=== PATIENT | male | born 1965 | race Caucasian/White ===

== ENCOUNTER 2022-08-14 11:49 | Outpatient (CLI) | payer MEDICARE, MEDICAID, SELFPAY | END 2022-08-14 11:50 | disposition home or self-care (01) | LOC: AMB 08-17 10:44 | PROVIDERS: PCP Family Medicine; Visit Provider Family Medicine | DX: E11.65 Type 2 diabetes mellitus with hyperglycemia (principal); R41.82 Altered mental status, unspecified | CPT/HCPCS: A0425; A0427 ==

== ENCOUNTER 2022-08-14 12:26 | Inpatient (IN) | payer MEDICARE, MEDICAID, SELFPAY ==
[2022-08-14] VITALS (46 sets, daily range): BP systolic 152–225; BP diastolic 89–156; PULSE 86–109; RESP 16–28; TEMP 36.6–36.8; O2SAT 92–98; BMI 47.0; BMI 45.7
--- NOTE | 2022-08-14 12:32 | CRLHL7_ITS ---
For Patients: As a result of the Cures Act, medical imaging exams and procedure reports are released immediately into your electronic medical record. You may view this report before your referring provider. If you have questions, please contact your health care provider. INDICATION: Altered mental status TECHNIQUE: CT head without contrast. COMPARISON: None. FINDINGS: CSF spaces: Within normal limits for age. Brain parenchyma: No intracranial bleed or mass effect. Mild cerebral atrophy with moderate low-density in the deep white matter. Old lacunar infarct along the left dexter radiata. Skull base and calvarium: Minimal mucosal thickening paranasal sinuses. Atherosclerosis. The visualized orbits are grossly unremarkable. No skull fractures. IMPRESSION: 1. No intracranial bleed or mass effect. 2. Old lacunar infarct left dexter radiata. 3. Cerebral atrophy with nonspecific white matter disease, likely microangiopathy. Results called to Dr. Villegas at 1254 on 08/14/2022 Please note that all CT scans at this facility use dose modulation, iterative reconstruction, and/or weight-based dosing when appropriate to reduce radiation dose to as low as reasonably achievable. Dictated by Jayjay Stoner MD @ 08/14/2022 12:57:19 PM (Electronically Signed)
--- NOTE | 2022-08-14 12:34 | CRLHL7_ITS ---
For Patients: As a result of the Century Cures Act, medical imaging exams and procedure reports are released immediately into your electronic medical record. You may view this report before your referring provider. If you have questions, please contact your health care provider. INDICATION: Altered mental status. TECHNIQUE: Chest 1 views. COMPARISON: None. FINDINGS: Cardiovasculature and mediastinum: Heart size and vasculature are normal in caliber and appearance. Lungs and pleural spaces: Low lung volumes limit assessment. Lungs are clear. No sign of infiltrate or mass. No sign of pleural effusion. No pneumothorax. Bones and soft tissues: No significant findings. IMPRESSION: No acute findings. Dictated by Gary Mcgraw MD @ 08/14/2022 1:08:40 PM (Electronically Signed)
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
[2022-08-14 13:03] LABS: HCO3 VBG 21 mmol/L (21-28); PCO2 VBG 34 mmHG (40-50); PO2 VBG 95.7 mmHG (25-47); pH VBG 7.405 (7.32-7.43)
[2022-08-14 13:05] LABS: Basophils Absolute Auto 0.05 K/uL (0.00-0.30); Basophils Percent Auto 0.5 % (0.0-3.0); Eosinophils Absolute Auto 0.15 K/uL (0.00-0.50); Eosinophils Percent Auto 1.6 % (0.0-7.0); Hematocrit 45.1 % (37.0-53.0); Hemoglobin* 15.5 gm/dL (13.5-17.5); Immature Granulocytes Abs Auto 0.03 K/uL (0.00-0.30); Immature Granulocytes Pct Auto 0.3 %; Lymphocytes Absolute Auto 1.96 K/uL (0.90-2.90); Lymphocytes Percent Auto 21.1 % (20-44); Mean Corpuscular HGB Conc 34 gm/dL (32-36); Mean Corpuscular Hemoglobin 30 pg (26-34); Mean Corpuscular Volume 86 fL (80-100); Monocytes Percent Auto 6.6 % (0.0-11.0); Neutrophils Percent Auto 69.9 % (42.0-72.0); Platelet Count* 211 K/uL (140-440); RDW Coefficient of Variation % 12.6 % (11.5-15.5); Red Blood Count 5.23 m/uL (4.30-5.90)
[2022-08-14 13:10] LABS: Appearance Urine Clear (Clear); Bilirubin Urine Negative (Negative); Blood Urine 2+ (Negative); Color Urine Yellow (Yellow); Glucose Urine 2+ (Negative); Ketones Urine Negative (Negative); Leukocyte Esterase Urine Negative (Negative); Nitrite Urine Negative (Negative); Protein Urine 2+ (Negative); Specific Gravity Urine 1.015 (1.000-1.030); Urobilinogen Urine 0.2 (0.2-1.0)
[2022-08-14 13:10] LABS: Slide Review Reflex No
--- NOTE | 2022-08-14 13:12 | ED.NURSE ---
POC Troponin 0.08, MD notified
[2022-08-14 13:13] LABS: Troponin, Point-of-Care* 0.08 ng/ml (0.01-0.04)
--- NOTE | 2022-08-14 13:13 | ED.NURSE ---
Patient was brought in by EMS with Oxygen at 3L due to sats at 90% on room air. Oxygen now off for room air trial.
[2022-08-14 13:19] LABS: RBC Urine 0-2 (0-2); WBC Urine 0-2 (0-5)
[2022-08-14 13:23] LABS: Albumin* 4.5 g/dL (3.3-5.0)
[2022-08-14 13:24] LABS: Chloride* 102 mmol/L (96-114); Sodium* 132 mmol/L (135-149)
[2022-08-14 13:26] LABS: Alkaline Phosphatase* 109 U/L (40-150); Aspartate Amino Transferase* 44 U/L (12-35); Bilirubin Total* 1.3 mg/dL (0.1-1.5); Blood Urea Nitrogen* 14 mg/dL (7-30); Carbon Dioxide* 21 mmol/L (20-32); Est. Creatinine Clearance* 75.28; Estimated Glomerular Filt Rate 87 ml/min; Total Protein* 7.9 g/dL (6.0-8.3)
[2022-08-14 13:27] LABS: Alanine Aminotransferase* 72 U/L (4-50); Calcium* 9.2 mg/dL (8.4-10.6)
[2022-08-14 13:28] LABS: INR 1.03 (0.91-1.10); Prothrombin Time 14.1 Seconds
[2022-08-14 13:34] LABS: Ethanol* < 0.01 % (0.01-0.03); Glucose* 582 mg/dL (60-115)
[2022-08-14 13:38] LABS: C Reactive Protein* 1.3 mg/dL (0.5-1.0)
[2022-08-14 13:42] LABS: PCR FLU A Negative PCR FLU A (Negative); PCR FLU B Negative PCR FLU B (Negative); PCR RSV Negative PCR RSV (Negative)
[2022-08-14 13:46] LABS: NT Pro B Type NatriureticPept* 191 pg/mL; Procalcitonin* 0.12 ng/mL (<0.50); Troponin I* 0.08 ng/mL (0.01-0.04)
[2022-08-14 13:52] LABS: SARS PCR* Negative SARS-CoV-2 (Negative)
[2022-08-14 13:56] LABS: Erythrocyte SedimentationRate* 13 mm/hr (2-15)
--- NOTE | 2022-08-14 14:03 | ED.NURSE ---
Spoke to pharmacy clinical coordinator at [facility] to get updated medication list. These were handed to provider. Per staff most 30 day supply medications were last filled in October of 2021.
[2022-08-14 14:04] LABS: D Dimer Quantitative* 0.36 ug/ml (0.00-0.50)
[2022-08-14 14:33] LABS: Barbiturate Screen Urine Negative (Negative); Benzodiazepines Screen Urine Negative (Negative); Cannabinoid Screen Urine Negative (Negative); Cocaine Screen Urine Negative (Negative); Methadone Screen Urine Negative (Negative); Methamphetamines Screen Urine Negative (Negative); Opiate Screen Urine Negative (Negative); Oxycodone Screen Urine Negative (Negative); Phencyclidine Screen Urine Negative (Negative); Tricyclic Antidepressant Urine Negative (Negative)
[2022-08-14 14:34] LABS: Amphetamine Screen Urine POSITIVE (Negative)
--- NOTE | 2022-08-14 14:52 | CRLHL7_ITS ---
For Patients: As a result of the Cures Act, medical imaging exams and procedure reports are released immediately into your electronic medical record. You may view this report before your referring provider. If you have questions, please contact your health care provider. INDICATION: Altered mental status. Comparison CT from earlier today. TECHNIQUE: Multiplanar T1, T2, FLAIR and diffusion-weighted imaging. FINDINGS: Moderate generalized volume loss. Scattered patchy foci of T2/FLAIR signal hyperintensity within the white matter is nonspecific but likely represents chronic deep white matter small vessel ischemic changes or sequela migraine headache. There is a small 4 mm focus of T2 hyperintensity within the left basal ganglia with surrounding susceptibility artifact (series 3, image 26) which likely represents a small cavernoma. No intracranial hemorrhage. No abnormal ventricular dilatation. Intracranial vascular flow voids are preserved. No mass effect or midline shift. No restricted diffusion to suggest acute ischemia. Tiny focus susceptibility artifact in the left cerebellum may represent mineral deposition or chronic micro hemorrhage. Bilateral orbits are unremarkable. Normal appearing sella. Visualized paranasal sinuses and mastoid air cells are unremarkable. IMPRESSION: 1. No acute intracranial abnormality 2. Moderate generalized volume loss. Scattered nonspecific foci of T2 signal within the white matter may represent chronic deep white matter small vessel ischemic changes or sequela of migraine headache. 3. 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 4. No midline shift. No mass effect Dictated by Mahendra Jeffrey MD @ 08/14/2022 5:48:18 PM (Electronically Signed)
[2022-08-14 16:23] LABS: Troponin, Point-of-Care* 0.07 ng/ml (0.01-0.04)
--- NOTE | 2022-08-14 16:49 | ED.NURSE ---
Pt to MRI
[2022-08-14] MEDS: LABETALOL HCL 5 MG/ML inj IVP (18:04)
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
--- NOTE | 2022-08-14 20:43 | CRLHL7_ITS ---
For Patients: As a result of the Century Cures Act, medical imaging exams and procedure reports are released immediately into your electronic medical record. You may view this report before your referring provider. If you have questions, please contact your health care provider. INDICATION: Leg pain and swelling. TECHNIQUE: Ultrasound venous duplex lower left extremity. Compression venous exam was performed using eaton-scale, color Doppler, and spectral Doppler analysis. COMPARISON: None. FINDINGS: Deep veins: Sonographic imaging demonstrates the left common femoral, deep femoral, superficial femoral, popliteal, posterior tibial and the contralateral right common femoral veins to be fully compressible with normal color Doppler blood flow. Superficial veins: Greater saphenous vein is fully compressible. No popliteal cyst. IMPRESSION: Normal left lower extremity venous ultrasound, no sign of deep venous thrombosis. Dictated by Rick Maurice MD @ 08/14/2022 10:01:08 PM (Electronically Signed)
[2022-08-14] MEDS: carvediloL 25 MG TABLET PO (21:37)
[2022-08-14 23:14] LABS: Hemoglobin A1C* 13.07 % (0-5.6)
[2022-08-15] VITALS (7 sets, daily range): BP systolic 98–196; BP diastolic 61–100; PULSE 68–86; RESP 16–20; TEMP 36.3–36.8; O2SAT 96
--- NOTE | 2022-08-15 02:15 | PC.NURSE ---
Dr had RN start Nitroprusside ggt but stooped it within [address] wanted to try Coreg PO and see what effect that had on Pt. Pt BP came down within Dr's parameters and continued throughout the night. Ggt did not have to be restarted. Pt BG levels also came down to 256 by 0200. No further action taken on BG. Neuroes remained unremarkable. Pt reporting zero pain. Pleasant and cooperative.
[2022-08-15 07:22] LABS: Chloride* 102 mmol/L (96-114); Potassium* 3.2 mmol/L (3.6-5.1); Sodium* 132 mmol/L (135-149)
[2022-08-15 07:25] LABS: Blood Urea Nitrogen* 14 mg/dL (7-30); Carbon Dioxide* 22 mmol/L (20-32); Est. Creatinine Clearance* 75.28; Estimated Glomerular Filt Rate 87 ml/min; Glucose* 270 mg/dL (60-115)
[2022-08-15 07:26] LABS: Calcium* 8.6 mg/dL (8.4-10.6)
[2022-08-15 07:39] LABS: Troponin I* 0.07 ng/mL (0.01-0.04)
[2022-08-15] MEDS: TORSEMIDE 20 MG TABLET PO (09:24)
[2022-08-15] MEDS: ROSUVASTATIN CALCIUM 10 MG TABLET 20 MG PO (09:24)
[2022-08-15] MEDS: LOSARTAN POTASSIUM 50 MG TABLET 100 MG PO (09:24)
[2022-08-15] MEDS: ISOSORBIDE MONONITRATE ER 30 MG TAB 60 MG PO (09:25)
[2022-08-15] MEDS: carvediloL 25 MG TABLET PO (09:25)
[2022-08-15] MEDS: CLOPIDOGREL 75 MG TABLET PO (09:25)
[2022-08-15] MEDS: ASPIRIN 81 MG TAB.CHEW PO (09:26)
[2022-08-15] MEDS: POTASSIUM CHLORIDE 10 MEQ CAPSULE ER 40 MEQ PO (09:26)
--- NOTE | 2022-08-15 11:39 | P.DS_ITS ---
DS: Providers Provider Time Seen by Provider: 11:39 Date Seen: 08/15/22 Date of admission: 08/14/22 21:10 Primary care physician: Leroy Membreno MD Admitting Clinician: Alisha Diop MD Attending Physician on discharge: Pato Summers MD Date of Discharge: 08/15/22 DS: Diagnosis Discharge Diagnosis (1) Hypertensive encephalopathy: Status: Suspected Problem details: Systolic blood pressures were initially in the 200s on arrival. It was felt his blood pressure was high initially because of needing a lot of high salt foods. He is committed to cutting down on these. He also had some confusion and may have missed some doses of his blood pressure medicines although he is not sure about that. His blood pressures came down into the mid upper 100s with resuming his home medications he was not having any headache or any cognitive problems at the time of discharge and his blood pressures leading up to discharge were 144 /86, 110/80. (2) Diabetes mellitus with hyperglycemia: Status: Acute Problem details: His blood sugar with EMS was 443. Most of his blood sugars here were in the 200s. 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 (3) Essential hypertension: Status: Chronic Problem details: Patient's blood pressure was well controlled on home medications. We did not give him any propranolol use in the hospital because he was on carvedilol. We advised him to stay off the propranolol at home as well. (4) Coronary artery disease: Status: Chronic Problem details: 07/2020 NSTEMI, recommended for CABG, but declined given he refuses blood products. S/p PCI to LAD 07/12/20; mRCA with 50% stenosis - dPR was 0.97 hence no PCI was performed 08/05/2020 presented as STEMI>no intervention - asymptomatic. DS: Summary Hospital Course Hospital Course: Luis Eduardo jimenez came into the hospital with hypertensive encephalopathy and hyperglycemia. He underwent a head CT and MRI of his head that showed no acute findings. His hypertension was treated by resuming his home blood pressure medicines and his blood pressure came back into the normal range with his discharge blood pressure 110/80. His mental status returned to normal. His hyperglycemia was managed with long-acting and sliding scale insulin. His blood sugars were mostly in the 200s at the time of discharge. He had been taking his Basaglar as a sliding scale and his NovoLog b.i.d. before he came into the hospital. We instructed him to take his Basaglar twice a day scheduled and his NovoLog as a sliding scale. Status at Discharge Functional status at discharge: independent ambulation Overall status at discharge: patient is back to baseline Time Spent with Patient Time attestation: Total time spent providing and/or coordinating discharge services: Time spent: Greater than 30 minutes Specific discharge activities: Coordinating care clarifying medications and follow-up. Exam 2 Const: Vital Signs, click to edit/add: Vital Signs - 24 hr 08/14/22 12:40 08/14/22 12:32 08/14/22 12:41 Temperature 98.1 F Pulse Rate 107 H Pulse Rate [Pulse Oximeter] 109 H Pulse Rate [Right Radial] Respiratory Rate 28 H Blood Pressure 224/131 H Blood Pressure [Ri ght Arm] Blood Pressure [Ri ght Upper Arm] 208/156 H Pulse Oximetry 95 97 97 Oxygen Delivery Me thod Nasal Cannula Oxygen Flow Rate 3 08/14/22 12:42 08/14/22 12:45 08/14/22 12:47 Temperature Pulse Rate 106 H 109 H 109 H Pulse Rate [Pulse Oximeter] Pulse Rate [Right Radial] Respiratory Rate Blood Pressure 225/135 H Blood Pressure [Ri ght Arm] Blood Pressure [Ri ght Upper Arm] Pulse Oximetry 96 96 97 Oxygen Delivery Me thod Oxygen Flow Rate 08/14/22 13:00 08/14/22 13:02 08/14/22 12:26 Temperature Pulse Rate 109 H 109 H Pulse Rate [Pulse Oximeter] Pulse Rate [Right Radial] Respiratory Rate Blood Pressure 209/123 H Blood Pressure [Ri ght Arm] Blood Pressure [Ri ght Upper Arm] Pulse Oximetry 97 97 97 Oxygen Delivery Me thod Nasal Cannula Oxygen Flow Rate 3 08/14/22 13:15 08/14/22 13:03 08/14/22 13:15 Temperature Pulse Rate 108 H 108 H Pulse Rate [Pulse Oximeter] Pulse Rate [Right Radial] Respiratory Rate Blood Pressure Blood Pressure [Ri ght Arm] Blood Pressure [Ri ght Upper Arm] Pulse Oximetry 93 96 95 Oxygen Delivery Me thod Room Air Oxygen Flow Rate 08/14/22 13:17 08/14/22 13:30 08/14/22 13:32 Temperature Pulse Rate 109 H 109 H 108 H Pulse Rate [Pulse Oximeter] Pulse Rate [Right Radial] Respiratory Rate Blood Pressure 205/126 H 192/120 H Blood Pressure [Ri ght Arm] Blood Pressure [Ri ght Upper Arm] Pulse Oximetry 95 92 92 Oxygen Delivery Me thod Oxygen Flow Rate 08/14/22 13:45 08/14/22 13:48 08/14/22 13:48 Temperature Pulse Rate 107 H 107 H 107 H Pulse Rate [Pulse Oximeter] Pulse Rate [Right Radial] Respiratory Rate Blood Pressure 203/109 H 203/109 H Blood Pressure [Ri ght Arm] Blood Pressure [Ri ght Upper Arm] Pulse Oximetry 94 94 94 Oxygen Delivery Me thod Oxygen Flow Rate 08/14/22 14:02 08/14/22 14:17 08/14/22 14:32 Temperature Pulse Rate Pulse Rate [Pulse Oximeter] Pulse Rate [Right Radial] Respiratory Rate Blood Pressure 200/125 H 205/124 H 218/137 H Blood Pressure [Ri ght Arm] Blood Pressure [Ri ght Upper Arm] Pulse Oximetry Oxygen Delivery Me thod Oxygen Flow Rate 08/14/22 14:48 08/14/22 15:03 08/14/22 15:18 Temperature Pulse Rate Pulse Rate [Pulse Oximeter] Pulse Rate [Right Radial] Respiratory Rate Blood Pressure 192/112 H 189/112 H 204/125 H Blood Pressure [Ri ght Arm] Blood Pressure [Ri ght Upper Arm] Pulse Oximetry Oxygen Delivery Me thod Oxygen Flow Rate 08/14/22 15:32 08/14/22 15:47 08/14/22 16:17 Temperature Pulse Rate Pulse Rate [Pulse Oximeter] Pulse Rate [Right Radial] Respiratory Rate Blood Pressure 218/129 H 204/115 H 198/132 H Blood Pressure [Ri ght Arm] Blood Pressure [Ri ght Upper Arm] Pulse Oximetry Oxygen Delivery Me thod Oxygen Flow Rate 08/14/22 16:32 08/14/22 16:47 08/14/22 17:17 Temperature Pulse Rate 98 Pulse Rate [Pulse Oximeter] Pulse Rate [Right Radial] Respiratory Rate Blood Pressure 206/119 H 188/118 H Blood Pressure [Ri ght Arm] Blood Pressure [Ri ght Upper Arm] Pulse Oximetry 98 Oxygen Delivery Me thod Oxygen Flow Rate 08/14/22 17:19 08/14/22 17:30 08/14/22 17:32 Temperature Pulse Rate 99 95 97 Pulse Rate [Pulse Oximeter] Pulse Rate [Right Radial] Respiratory Rate Blood Pressure 191/115 H 209/113 H Blood Pressure [Ri ght Arm] Blood Pressure [Ri ght Upper Arm] Pulse Oximetry 96 96 98 Oxygen Delivery Me thod Oxygen Flow Rate 08/14/22 17:45 08/14/22 17:47 08/14/22 18:00 Temperature Pulse Rate 92 93 92 Pulse Rate [Pulse Oximeter] Pulse Rate [Right Radial] Respiratory Rate Blood Pressure 205/114 H Blood Pressure [Ri ght Arm] Blood Pressure [Ri ght Upper Arm] Pulse Oximetry 95 95 95 Oxygen Delivery Me thod Oxygen Flow Rate 08/14/22 18:02 08/14/22 18:15 08/14/22 18:18 Temperature Pulse Rate 92 88 92 Pulse Rate [Pulse Oximeter] Pulse Rate [Right Radial] Respiratory Rate Blood Pressure 168/116 H 152/127 H Blood Pressure [Ri ght Arm] Blood Pressure [Ri ght Upper Arm] Pulse Oximetry 95 96 96 Oxygen Delivery Me thod Oxygen Flow Rate 08/14/22 18:30 08/14/22 18:33 08/14/22 19:27 Temperature 98.1 F Pulse Rate 88 86 Pulse Rate [Pulse Oximeter] Pulse Rate [Right Radial] 87 Respiratory Rate 16 Blood Pressure 196/100 H Blood Pressure [Ri ght Arm] 190/114 H Blood Pressure [Ri ght Upper Arm] Pulse Oximetry 96 95 94 Oxygen Delivery Me thod Room Air Oxygen Flow Rate 08/14/22 19:38 08/14/22 20:51 08/14/22 22:10 Temperature 98.2 F Pulse Rate Pulse Rate [Pulse Oximeter] Pulse Rate [Right Radial] 87 Respiratory Rate 16 16 Blood Pressure Blood Pressure [Ri ght Arm] 207/123 H Blood Pressure [Ri ght Upper Arm] Pulse Oximetry 94 95 98 Oxygen Delivery Me thod Room Air Room Air Oxygen Flow Rate 08/14/22 22:47 08/14/22 22:48 08/14/22 22:56 Temperature 98 F Pulse Rate Pulse Rate [Pulse Oximeter] Pulse Rate [Right Radial] 87 87 Respiratory Rate 16 16 Blood Pressure Blood Pressure [Ri ght Arm] 174/89 H Blood Pressure [Ri ght Upper Arm] Pulse Oximetry 98 96 Oxygen Delivery Me thod Room Air Room Air Oxygen Flow Rate 08/15/22 02:09 08/15/22 03:00 Temperature 98.2 F Pulse Rate Pulse Rate [Pulse Oximeter] Pulse Rate [Right Radial] 73 73 Respiratory Rate 16 16 Blood Pressure Blood Pressure [Ri ght Arm] 144/86 H Blood Pressure [Ri ght Upper Arm] Pulse Oximetry 96 Oxygen Delivery Me thod Room Air Oxygen Flow Rate Cardiovascular regular rate and rhythm. Lungs clear to auscultation bilaterally. Extremities - he moves all extremities equally with no edema he ambulates without difficulty. Skin is warm dry and intact without rashes. Documenting provider has reviewed patient's vital signs: yes DS: Data Data Completed and Pending Completed studies during hospitalization: Head CT, head MRI, lab work. Pending studies at discharge: None Labs on day of discharge: Labs from last 24 hours 08/15/22 08/14/22 08/14/22 06:48 Unknown 16:05 WBC RBC Hgb Hct MCV MCH MCHC RDW Coeff of Luke Plt Count Neut % (Auto) Lymph % (Auto) [place] % (Auto) Eos % (Auto) Baso % (Auto) Neut # (Auto) Lymph # (Auto) [place] # (Auto) Eos # (Auto) Baso # (Auto) ESR INR D-Dimer Quant (PE/DVT) VBG pH VBG pCO2 VBG pO2 VBG HCO3 Sodium 132 L Potassium 3.2 L Chloride 102 Carbon Dioxide 22 BUN 14 Creatinine 1.0 Estimated Creat Clear 75.28 Estimated GFR 87 Glucose 270 H Hemoglobin A1c Lactate Calcium 8.6 Magnesium Total Bilirubin AST ALT Alkaline Phosphatase Troponin I 0.07 H* C-Reactive Protein NT-Pro-B Natriuret Pep Total Protein Albumin Procalcitonin TSH Urine Color Urine Appearance Urine pH Ur Specific [place] Urine Protein Urine Glucose (UA) Urine Ketones Urine Blood Urine Nitrite Urine Bilirubin Urine Urobilinogen Ur Leukocyte Esterase Urine RBC Urine WBC Ur Squamous Epith Cells Urine Bacteria Urine Opiates Screen Negative Ur Oxycodone Screen Negative Urine Methadone Screen Negative Ur Propoxyphene Screen Negative Ur Barbiturates Screen Negative U Tricyclic Antidepress Negative Ur Phencyclidine Scrn Negative Ur Amphetamines Screen POSITIVE A* U Methamphetamines Scrn Negative U Benzodiazepines Scrn Negative Urine Cocaine Screen Negative U Marijuana (THC) Screen Negative Ur Drug Screen Comment See Note Ethyl Alcohol SARS-CoV-2 (PCR) Influenza Type A (PCR) Influenza Type B (PCR) RSV (PCR) POC Troponin I 0.07 H 08/14/22 08/14/22 08/14/22 12:55 12:50 12:45 WBC 9.30 RBC 5.23 Hgb 15.5 Hct 45.1 MCV 86 MCH 30 MCHC 34 RDW Coeff of Luke 12.6 Plt Count 211 Neut % (Auto) 69.9 Lymph % (Auto) 21.1 [place] % (Auto) 6.6 Eos % (Auto) 1.6 Baso % (Auto) 0.5 Neut # (Auto) 6.50 Lymph # (Auto) 1.96 [place] # (Auto) 0.60 Eos # (Auto) 0.15 Baso # (Auto) 0.05 ESR 13 INR 1.03 D-Dimer Quant (PE/DVT) 0.36 VBG pH 7.405 VBG pCO2 34 L VBG pO2 95.7 H VBG HCO3 21 Sodium 132 L Potassium 4.0 Chloride 102 Carbon Dioxide 21 BUN 14 Creatinine 1.0 Estimated Creat Clear 75.28 Estimated GFR 87 Glucose 582 H* Hemoglobin A1c 13.07 H Lactate 2.0 H Calcium 9.2 Magnesium 2.0 Total Bilirubin 1.3 AST 44 H ALT 72 H Alkaline Phosphatase 109 Troponin I 0.08 H* C-Reactive Protein 1.3 H NT-Pro-B Natriuret Pep 191 Total Protein 7.9 Albumin 4.5 Procalcitonin 0.12 TSH 2.350 Urine Color Yellow Urine Appearance Clear Urine pH 7.0 Ur Specific [place] 1.015 Urine Protein 2+ A Urine Glucose (UA) 2+ A Urine Ketones Negative Urine Blood 2+ A Urine Nitrite Negative Urine Bilirubin Negative Urine Urobilinogen 0.2 Ur Leukocyte Esterase Negative Urine RBC 0-2 Urine WBC 0-2 Ur Squamous Epith Cells None Urine Bacteria None Urine Opiates Screen Ur Oxycodone Screen Urine Methadone Screen Ur Propoxyphene Screen Ur Barbiturates Screen U Tricyclic Antidepress Ur Phencyclidine Scrn Ur Amphetamines Screen U Methamphetamines Scrn U Benzodiazepines Scrn Urine Cocaine Screen U Marijuana (THC) Screen Ur Drug Screen Comment Ethyl Alcohol < 0.01 L SARS-CoV-2 (PCR) Negative SARS-CoV-2 Influenza Type A (PCR) Negative PCR FLU A Influenza Type B (PCR) Negative PCR FLU B RSV (PCR) Negative PCR RSV POC Troponin I 0.08 H His low potassium of 3.2 was replaced orally with 40 mEq of potassium. Discharge Plan Discharge Disposition: Home, Self-Care Date of Admission: 08/14/22 21:10 Attending Provider on Discharge: Pato Summers Primary Care Provider: Lreoy Membreno Condition: Improved Anticipated Discharge Date/Time: 08/15/22 12:26 Discharge Medications: Continued carvedilol 25 mg tablet 25 mg PO BID torsemide 20 mg tablet 20 mg PO DAILY (DME) blood-glucose meter [Accu-Chek Guide Glucose Meter] Misc MISCELLANEOUS QID clopidogrel 75 mg tablet 75 mg PO DAILY (DME) Accu-Chek Guide test strips Strip MISCELLANEOUS 5XD isosorbide mononitrate 60 mg tablet extended release 24 hr 60 mg PO DAILY (DME) lancets [Accu-Chek Softclix Lancets] Misc MISCELLANEOUS QID dextroamphetamine-amphetamine [Adderall] 20 mg tablet 1 tab PO BID nitroglycerin 0.4 mg tablet, sublingual 0.4 mg sublingual PRN aspirin 81 mg tablet,chewable 1 tab PO DAILY losartan 100 mg tablet 100 mg PO DAILY rosuvastatin 20 mg tablet 20 mg PO DAILY insulin glargine [Basaglar KwikPen U-100 Insulin] 100 unit/mL (3 mL) insulin pen 36 unit subcut BID metformin 500 mg tablet 500 mg PO BID insulin aspart U-100 [Novolog FlexPen U-100 Insulin] 100 unit/mL (3 mL) insulin pen subcut Patient Comments: per sliding scale Discharge Orders: Discharge Order (Routine); Ordered 08/15/22 Ordered By: Pato Summers Additional Instructions: Don't take Propranolol Take Lantus (Basaglar, Glaginine) in the morning and at night. Take the Novolog sliding scale before meals Activity Level: No Restrictions Discharge Diet: Diabetic Follow Up Appointments: Leroy Membreno MD [Primary Care Provider] - Anselmo Altman MD [Referring] - (See Dr. Altman within 1 week with a Basic Metabolic Panel. ) Forms: [employer] (Mobile Payments) Info Instructions
--- NOTE | 2022-08-15 15:21 | PC.NURSE ---
Please see eMar for meds given on day shift. Eval by Dr. Pato Summers and myself. Sig other present at bedside. Pt's BG levels remain elevated. BP level improved after initial assessment. Tele & 2 AC IV sites discontinued. Pt and sig other Melora verbalized understanding of d/c instructions, diabetic teaching, home management plan, f/up appt and sx to report urgently to physician.
== END 2022-08-15 14:10 | disposition home or self-care (01) | DRG 78 ==
LOC: ED 18:09 → MEDSURG 18:36
PROVIDERS: Admitting Provider Family Medicine; Emergency Provider Family Medicine; PCP Family Medicine; Visit Provider Family Medicine
DX: I67.4 Hypertensive encephalopathy (principal); F31.81 Bipolar II disorder; I50.42 Chronic combined systolic (congestive) and diastolic (congestive) heart failure; Z68.42 Body mass index [BMI] 45.0-49.9, adult; I16.1 Hypertensive emergency; E11.65 Type 2 diabetes mellitus with hyperglycemia; R47.81 Slurred speech; I11.0 Hypertensive heart disease with heart failure; Z79.4 Long term (current) use of insulin; Z79.84 Long term (current) use of oral hypoglycemic drugs; F90.9 Attention-deficit hyperactivity disorder, unspecified type; F41.8 Other specified anxiety disorders; E66.01 Morbid (severe) obesity due to excess calories; G47.33 Obstructive sleep apnea (adult) (pediatric); I45.10 Unspecified right bundle-branch block; I25.10 Atherosclerotic heart disease of native coronary artery without angina pectoris; E78.5 Hyperlipidemia, unspecified; I25.2 Old myocardial infarction
CPT/HCPCS: 36415; 70450; 70551; 71045; 80048; 80053; 80306; 81001; 82077; 82803; 82962; 83036; 83605; 83735; 83880; 84145; 84443; 84484; 85025; 85379; 85610; 85651; 86140; 87631; 93005; 93971; 94761; 99285; G0378; A9270; J7050

== ENCOUNTER 2024-10-21 08:22 | Emergency (ER) | payer MEDICARE, SELFPAY ==
--- OUTSIDE RECORDS SUMMARY | 2024-10-21 08:24 | XMS_ITS | Encounter Summary ---
Author Organization [facility] Address [address] [place] [address] Care Team Providers Care Archivist Economic History Name Role Phone Jill Mcbride, P.A.-C. Primary Care Pro vider Reason for Visit * Reason Onset Date Comments Med Refill 09/26/2024 Encounter Details Date Type Department Care Team (Late st Contact Info) Description 09/26/2024 Refill Department [facility] in [place], [place] [address] [place] [address] Jill Mcbride MPAS, P.A.-C. [address] [place] [id number] Med Refill Social History Tobacco Use Types Packs/Day Years Used Date Smoking Tobacco: Former Passive Smoke Exposure: Past Smokeless Tobacco: Former Alcohol Use Standard Drinks/Week Comments Not Currently 0 (1 standard drink = 0.6 oz pur e alcohol) 15 years free of alcohol [facility] Utilities Answer Date Recorded In the past 12 months has [employer], gas, oil, or water [employer] threatened to shut off services in your home? Yes 07/22/2023 Humiliation, Afraid, Rape, and Kick questionnair e Answer Date Recorded Within the last year, have y ou been afraid of your partner or ex-partner? No 07/22/2023 Within the last year, have y ou been humiliated or emotionally abused in other ways by your partner or ex-partner? No Within the last year, have y ou been kicked, hit, slapped, or otherwise physically hurt by your partner or ex-partner? No 07/22/2023 Within the last year, have y ou been raped or forced to have any kind of sexual activity by your partner or ex-partner? No 07/22/2023 Hunger Vital Sign Answer Date Recorded Within the past 12 months, y ou worried that your food would run out before you got the money to buy more. Often true 07/22/19 Within the past 12 months, t he food you bought just didn't last and you didn't have money to get more. Often true 07/22/2023 PRAPARE - Transportation Answer Date Re corded In the past 12 months, has l ack of transportation kept you from medical appointments or from getting medications? No 07/02 In the past 12 months, has l ack of transportation kept you from meetings, work, or from getting things needed for daily living? No 07/22/2023 Depression Answer Date Recor ded PHQ-9 Total Score (max 27) 20 10/24 Housing Stability Answer Date Recorded What is your living situation today? I have a [facility] place to live 07/22/2023 Education Answer Date Recorded What is the highest level of school you have completed or the highest degree you have received? 12th grade 10/24/2020 Sex and Gender Information Value Date Recorded Sex Assigned at Male 05/13/2023 11:36 AM FILE SYSTEM INSTALLER Legal Sex Male 9:32 PM FILE SYSTEM INSTALLER Gender Identity Male 05/13/2023 11:36 AM FILE SYSTEM INSTALLER Sexual Orientation Straight 05/13/2023 11 :36 AM FILE SYSTEM INSTALLER documented as of this encounter Plan of Treatment Not on file documented as of this encounter Visit Diagnoses Diagnosis Atherosclerotic Heart Disease Of [place] Coronary Artery Without Angina Pectoris documented in this encounter Additional Health Concerns Assessment Noted Time PHQ-9 Depression Total Score: 20 021 7:40 AM CDT documented as of this encounter Care Teams Archivist Economic History Relationship Specialty Start Date End Date Jill Mcbride MPAS, P.A.-C. [address] [phone] PCP - General Internal Medicine 04/03/24 documented as of this encounter
--- OUTSIDE RECORDS SUMMARY | 2024-10-21 08:25 | XMS_ITS | Clinical Summary ---
Author Organization [facility] Address [address] [place] [address] Care Team Providers Care Music Orchestrator Name Role Phone Jill Mcbride P.A.-C. Primary Care Pro vider Source Comments Patient records contain information from all sites at [facility]. For routine questions regarding patient records, call [phone] during business hours, M-F 8:00 AM - 5:00 PM Central Time. Record requests for emergency care only can be directed to [phone] at any time.[facility] Allergies Active Allergy Reactions Criticality Noted Date Comments Lisinopril Cough Low 07/15/2017 Pt reports no known allergy Medications * This document contains information received from the source organization and may not represent a complete record from that organization. dextroamphetamine -amphetamine (ADDERALL) 20 mg tablet Take 20 mg by mouth daily. Active artificial tears,hypromellos e, (ISOPTO TEARS) 0.5 % ophthalmic solution Administer 1 drop into the left eye 4 (four) times a day as needed for dry eyes. 15 mL 03/13/20 23 Active amLODIPine (NORVASC) 10 mg tablet Take 1 tablet (10 mg total) by mouth every evening. 90 tablet 3 06/23/19 24 Active Farxiga 10 mg tabletIndications :Diabetes Mellitus Type 2 Hyperglycemia (HCC) take one tablet by mouth every day 90 tablet 3 08/03/19 24 Active isosorbide mononitrate (IMDUR) 60 mg 24 hr tablet take one tablet by mouth every day 90 tablet 3 09/24/19 Active rosuvastatin (Crestor) 40 mg tabletIndications :Atherosclerotic Heart Disease Of [place] Coronary Artery Without Angina Pectoris Take 1 tablet (40 mg total) by mouth daily. 90 tablet 3 10/29/19 24 025 Active blood sugar diagnostic stripsIndications :Diabetes Mellitus Type 2 Hyperglycemia (HCC) 4 test daily. 360 test 3 01/26/20 24 025 Active blood glucose ctl high,nml,low solutionIndicatio ns:Diabetes Mellitus Type 2 Hyperglycemia (HCC) Glucose control solution provides an easy way to ensure accurate blood glucose testing. 1 each 01/26/20 Active lancetsIndication s:Diabetes Mellitus Type 2 Hyperglycemia (HCC) Use as directed for glucose monitoring with lancet device 100 each 3 01/26/20 Active aspirin 81 mg chewable tabletIndications :Atherosclerotic Heart Disease Of [place] Coronary Artery Without Angina Pectoris Chew 1 tablet (81 mg total) daily. 90 tablet 3 05/02/20 24 025 Active ezetimibe (Zetia) 10 mg tablet Take 1 tablet (10 mg total) by mouth daily. 90 tablet 3 06/02/19 25 026 Active gabapentin (Neurontin) 600 mg tablet Take 1 tablet (600 mg total) by mouth 2 (two) times a day. 180 tablet 3 06/02/19 25 Active lamoTRIgine (LaMICtaL) 100 mg tablet Take 1 tablet (100 mg total) by mouth daily. 90 tablet 06/02/19 25 Active losartan (Cozaar) 100 mg tabletIndications :Chronic Kidney Disease Stage 2 Glomerular Filtration Rate 60 To 89 Take 1 tablet (100 mg total) by mouth daily. 90 tablet 3 06/02/19 25 Active nitroglycerin (Nitrostat) 0.[address] 1 tablet (0.4 mg total) under the tongue every 5 (five) minutes as needed for chest pain. 100 tablet 3 06/02/19 25 Active tirzepatide (Mounjaro) 7.5 mg/0.5 mL pen injector injectionIndicati ons:Diabetes Mellitus Type 2 Hyperglycemia (HCC),Diabetes Mellitus Type 2 Peripheral Neuropathy (HCC),Morbid Obesity Body Mass Index 45.0-49.9 Adult (HCC) Inject 0.5 mL (7.5 mg total) under the skin every 7 (seven) days. 6 mL 2 06/02/19 25 Active insulin glargine (Lantus Solostar U-100 Insulin) 100 unit/mL (3 mL) penIndications:Di abetes Mellitus Type 2 Hyperglycemia (HCC) Inject 42 Units under the skin 2 (two) times a day. Pharmacy select brand per patient insurance/pref erence. 75.6 mL 3 06/09/19 25 026 Active spironolactone (Aldactone) 50 mg tablet Take 1 tablet (50 mg total) by mouth daily. 90 tablet 3 08/19/19 25 Active blood-glucose meter miscIndications:D iabetes Mellitus Type 2 Hyperglycemia (HCC) Test as directed for diabetes control. 1 each 09/16/19 25 Active flash glucose sensor (FreeStyle Falguni 2 Sensor) kitIndications:Di abetes Mellitus Type 2 Hyperglycemia (HCC) 1 each (1 kit total) every 14 (fourteen) days. 6 each 3 09/19/19 25 Active flash glucose scanning reader (FreeStyle Falguni 2 [place]) 1 each (1 Device total) daily. 1 each 09/20/19 25 Active carvediloL (Coreg) 25 mg tabletIndications :Atherosclerotic Heart Disease [place] Coronary Artery Without Angina Pectoris Take 1 tablet (25 mg total) by mouth 2 (two) times a day with meals. 180 tablet 3 09/27/19 25 Active carvediloL (COREG) 25 mg tabletIndications :Atherosclerotic Heart Disease [place] Coronary Artery Without Angina Pectoris take one tablet by mouth twice a day with meals 180 tablet 3 08/26/19 24 025 Discontin ued(Reord er) Active Problems Problem Noted Date Diagnosed Date Morbid Obesity Body Mass Index 45.0-49.9 Adult 0 08/17/2024 Coronary Stent Status Post 08/17/2024 Stroke Cerebrovascular Accident Personal History 05/02/2024 Overview (05/02/2024): Hospitalized for ischemic stroke Jun 2023. Aspirin 81 mg daily recommended lifelong. Diabetes Mellitus Type 2 Peripheral Neuropathy 1 06/08/2022 Assessment & Plan (10/14/2023 2:39 PM CDT): Stable continue with gabapentin. Assessment & Plan (08/04/2023 3:13 PM CDT): Refilled gabapentin today. Assessment & Plan (04/07/2023 8:52 AM FORCE ADJUSTMENT SUPERVISOR): Doing well with gabapentin 100 mg b.i.d.. Obstructive Sleep Apnea Adult 07/20/2019 Assessment & Plan (10/14/2023 8:15 AM CDT): Stable continue with CPAP. Assessment & Plan (03/04/2023 8:39 AM CDT): Compliant with CPAP Obesity Body Mass Index 30-39.9 Adult 07/20/2019 Assessment & Plan (08/16/2023 5:31 PM CDT): We will increase the Mounjaro 5 mg. Patient's blood glucose today was 145 mg/dl. Continue to monitor BG with freestyle Falguni. Continue to work with the gas pumping station helper. Bipolar Disorder 07/18/2019 Overview (08/17/2024): Continue Lamictal 100 mg daily Chronic Combined Systolic (C ongestive) And Diastolic (Congestive) Heart Failure 12/21/2018 Assessment & Plan (10/14/2023 8:15 AM CDT): Stable, continue with Farxiga 10 mg, spironolactone 25 mg, and carvedilol 25 mg b.i.d., euvolemic state today. Hypertensive Heart And Chron ic Kidney Disease With Heart Failure And Stage 1 To 4 Chronic Kidney Disease Or Unspecified Chronic Kidney Disease 12/23/2017 Assessment & Plan (10/14/2023 2:39 PM CDT): Blood pressure is better today. Systolic blood pressure is slightly above goal today. Recommended to continue monitoring blood pressure at home. Continue with losartan 100 mg, spironolactone 25 mg, carvedilol 25 mg b.i.d.. Patient gets home health nurse that monitor his BP at home. Assessment & Plan (09/02/2023 2:22 PM CDT): Patient's blood pressure is elevated today. Patient's is currently on losartan 100 mg, amlodipine 10 mg, carvedilol 50 mg. We discontinued spironolactone in the past due to elevated creatinine. Patient reports his blood pressure at home is 130s. He has a home Health NICOLE that checks his BP twice a week. We keep him current antihypertensive medication regimen and do home visit and see how his BP is at home. Continue to monitor BP at home. Continue with lifestyle modifications. Assessment & Plan (08/16/2023 5:29 PM CDT): Patient is here today following up for blood pressure. We recently held his losartan 100 mg, spironolactone 25 mg due to acute kidney injury. Patient has been off of this to medication for the last 3 days. His blood pressure is mildly elevated today. We will do BMP today and recommended patient to get back on losartan 50 mg and continue to hold the spironolactone. Monitor blood pressure at home daily. Recommended the [facility] health nurse to check his BP at home to. Follow up with me in 2 weeks. BP goal: <130/80. Assessment & Plan (08/04/2023 3:14 PM CDT): Blood pressure is at goal today. Continue with carvedilol 50 mg, amlodipine 10 mg, losartan 100 mg and 25 mg spironolactone. The side effects of the medication. We will do BMP today. - [facility] health nurse checks his BP at home at least 3 times a week. - recommended lifestyle modifications. Assessment & Plan (07/24/2023 2:25 PM CDT): Blood pressure not at goal today. Patient is currently on losartan 100 mg, 10 mg amlodipine and carvedilol 50 mg. Recheck BMP was at baseline today. - Added spironolactone 25 mg for better blood pressure control. - blood pressure goal < 130/80 - Recommended to monitor blood pressure home. - [facility] health nurse to help with medication set up and BP monitoring. Assessment & Plan (07/10/2023 5:18 PM FORCE ADJUSTMENT SUPERVISOR): Patient's blood pressure I have reached 148/102 today. His currently on losartan 100 mg, carvedilol 50 mg and 10 mg amlodipine. Patient's blood pressure is not at goal. We recommended his blood pressure to be less than 130/80. Patient's a.m. blood glucose was 150 mg/dL. He does not have the free Style Falguni sensor so will send it today. Plan - continue with 100 mg losartan, 10 mg amlodipine and 50 mg carvedilol. - recent BMP recheck was normal. - continue to monitor blood pressure at home and follow up with me in a week in the clinic. I did not want to add new antihypertensive medication for him because I do want the patient to confuse himself. I have arranged him with [facility] health nurse visit to help arrange his medications so he doesn't take duplicates of medications. - pharmacy consult for medication management. Assessment & Plan (07/08/2023 7:11 PM FORCE ADJUSTMENT SUPERVISOR): Patient is currently taking carvedilol 25 mg b.i.d., amlodipine 10 mg. Spironolactone 25 and losartan 50 mg was discontinued during hospitalization due to acute kidney injury. Patient's blood pressure is not at goal today. Recheck of his BMP was normal today and re-initiated his losartan 50 mg. Continue to hold spironolactone. It looks like patient has been taking carvedilol 25 mg b.i.d. from 2 different bottles. Concerned of patient polypharmacy. We will set up with a daughter [facility] for medication management and set up at home so he does not take duplicates of medications. Follow up in 2 weeks for blood pressure recheck and BMP. Assessment & Plan (04/07/2023 8:50 AM FORCE ADJUSTMENT SUPERVISOR): Patient is here following up with his blood pressure. Blood pressure is elevated today. Patient is currently on 50 mg losartan. Will increase his losartan to 100 mg. Continue with carvedilol 25 mg. Denied to have chest pain, shortness O a breath, vision changes or headache. Will do BMP today. Assessment & Plan (03/04/2023 8:24 AM CDT): Blood pressure at goal today. Discontinue propranolol torsemide. Recommended the patient to continue with carvedilol 25 mg and losartan 100 mg. Diabetes Mellitus Type 2 Hyperglycemia 4 Assessment & Plan (10/14/2023 11:39 AM CDT): Patient is currently on 38 units of Lantus b.i.d. and will increase his Mounjaro to 7.5 mg. Discussed hypoglycemic awareness with the patient. Continue with freestyle Falguni. Patient will decrease 2 units of insulin each if his blood glucose goes down to less than 70. Assessment & Plan (09/02/2023 2:16 PM CDT): Patient is currently on 44 units Lantus b.i.d. and he reports his a.m. blood glucose was 170 and his p.m. blood glucose was 141. Patient continues to wear freestyle Falguni. We prescribe the patient with Mounjaro 2.5 mg and patient has done very well with this. We tried to increase Mounjaro to 5 mg to assist him with weight loss but its out of stock at the pharmacy. We will try [facility] pharmacy to see if they carry the 5 mg today. If not I have recommended the patient to get back to his 2.5 mg Mounjaro for now until the 5 mg Mounjaro is available. We recheck hemoglobin A1c and urine microalbumin urine level today. Assessment & Plan (07/24/2023 2:25 PM CDT): Patient is currently on 42 units Lantus b.i.d. and patient reports he has not been taking his NovoLog sliding scale insulin for the last 1 week due to out prescription. Patient experienced hypoglycemic symptoms such as diaphoresis, tachycardia last night that awakened him and improved with drinking juice. This A.m. blood glucose was 73, 87, but also had high A.m BG through out last 5 days that averaged in the 190s. Patient's BG is very labile. Plan - Recommended to continue with Lantus 42 units b.i.d.. - Recommended to discontinue NovoLog sliding scale insulin. - Will initiate Mounjaro to help him lose weight and also help with blood glucose - freestyle Falguni: recommended checking is BG fasting A.m, before meals and 2 hours postprandial blood glucose. - continue with aspirin 81 mg - Crestor 20 mg - recommended lifestyle modifications. - follow up with me in 2 weeks - home health [facility] to help with medications set up. - Pharmacy Medication therapy: scheduled. Assessment & Plan (07/10/2023 5:18 PM FORCE ADJUSTMENT SUPERVISOR): We recently decrease his Lantus to 42 units bid due to hypoglycemic episode concerns.. Continue with NovoLog sliding scale insulin. Plan - continue with 42 units of Lantus bid - SSI insulin - Goal Am Blood glucose 80-140 - 2 hour postprandial glucose <180 - Continue with freestyle Falguni - Crestor 20 mg - Aspirin 81 mg - Arranged [facility] to help with medication set up Assessment & Plan (07/08/2023 7:16 PM FORCE ADJUSTMENT SUPERVISOR): Last hemoglobin A1c was 9.5. Patient is currently on 45 units Lantus b.i.d., Farxiga 10 mg and NovoLog sliding scale insulin. Patient reports his a.m. blood glucose is in the lower 60s. Plan - Decreased Lantus to 42 units bid due hypoglycemic episodes - Continue with Farxiga 10 mg - NovoLog sliding scale insulin - Goal Am Blood glucose 80-140 - 2 hour postprandial glucose <180 - Continue with freestyle Falguni - Crestor 20 mg - Aspirin 81 mg - Arranged [facility] to help with medication set up - Foot exam done today. - patient plans to set up eye exam with his curb and gutter laborer in the coming weeks. Assessment & Plan (03/04/2023 8:23 AM CDT): Patient's hemoglobin A1c has gotten down from 12.8 to 9.5. Recommended to continue with his Lantus 45 units b.i.d. and sliding scale insulin. Increase Farxiga to 10 mg. Plan - Increase Farxiga to 10 mg - continue with Lantus 45 units b.i.d. 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 Patient has residual RCA and circumflex disease that is treated medically. Assessment & Plan (10/14/2023 11:35 AM CDT): Stable, no chest pain today. Continue with carvedilol 25 mg b.i.d., continue with Zetia 10 mg and will increase his Crestor to 40 mg today. LDL goal is less than 70. Assessment & Plan (07/08/2023 7:15 PM FORCE ADJUSTMENT SUPERVISOR): Percutaneous Transarterial Coronary Angioplasty Status Post CAD status post PCI to the LAD. Patient has residual RCA and circumflex disease that is treated medically. - no chest pain today. Follows cardiology Assessment & Plan (03/04/2023 8:38 AM CDT): Patient has history of coronary artery (NSTEMI 07/2020 status post CHINO to proximal LAD,CABG recommended but no transfusion possible, echo 2020 showed ejection fraction 45%, combined systolic and diastolic heart failure. Plan - Patient is poor historian - recommended daily weight himself at home - discontinued torsemide due to the acute kidney injury - continued Farxiga - Repeat Echo - cardiology consult Attention Deficit With Hyperactivity Disorder Assessment & Plan (10/14/2023 11:38 AM CDT): Stable currently on Adderall 20 mg. This is managed by [facility]. No side effects of the medication. Assessment & Plan (03/04/2023 8:42 AM CDT): Continue with dextroamphetamine 20 mg managed by psychiatrist Sheryl Handy at [facility] We dont have compete record of his Mental Health and patient is a poor historian. Will reach out to [facility] to request release of medical information. Hyperlipidemia Assessment & Plan (10/14/2023 2:39 PM CDT): Zetia 10 mg, Crestor 20 mg. LDL not at goal. Will increasing Crestor to 40. Assessment & Plan (03/04/2023 12:07 AM CDT): Images from the original note were not included. Stable continue with Crestor 20 mg. Lipids 03/03/2023 12/04/2020 10/24/2020 07/12/2020 2:25 PM 10:39 AM 9:04 AM 6:45 AM CHOL 132 149 160 160 TRIG 219 279 335 206 HDL 22 25 22 25 LDLCALC 73 -- 71 -- TTLCHOLHDLRT -- 5.96 -- 6.40 Resolved Problems Problem Noted Date Diagnosed Date Resolved Date Leukocytosis 06/03/2023 10/14/2023 Stroke 05/31/2023 10/14/2023 Assessment & Plan (07/08/2023 7:18 PM FORCE ADJUSTMENT SUPERVISOR): Patient was recently hospitalized due to stroke-like symptoms. MRI showed acute nonhemorrhagic infarct around the left lateral ventricle, areas suggesting prior hemorrhage and hemosiderin deposition. Patient is currently have home health with NICOLE and gets speech and pt therapy. - currently on Aspirin 81 mg, not on Plavix due hx of prior hemorrhage and hemosiderin deposition noted on MRI - neurology referral Hyperglycemia 12/01/2022 03/03/2023 Encephalopathy Metabolic 12/01/202205/2022 Diabetes Mellitus Type 2 Wit h Hyperosmolarity Without Nonketotic Hyperglycemic Hyperosmolar Coma 12/01/2022 03/03/2023 Acidosis Lactic 12/01/2022 03/04/2023 Hyperglycemia 11/24/2021 08/31/2022 Failure Renal Acute (Acute Kidney Injury) 12/05/2020 10/14/2023 Assessment & Plan (07/08/2023 7:08 PM FORCE ADJUSTMENT SUPERVISOR): Patient RUBY resolved. Will re-initiated losartan 50 mg today. Follow up 2 weeks for BMP recheck. Dyspnea On Exertion 10/25/2020 03/03/20 23 Cardiomyopathy Ischemic 07/12/2020 12/0 10/2022 Atherosclerotic Heart Diseas e Of [place] Coronary Artery With Unstable Angina Pectoris 07/11/2020 04/07/2023 Other Chest Pain 07/10/2020 12/01/2021 Pain Chest 07/09/2020 12/01/2021 Angina Unstable 07/09/2020 03/04/2023 Noncompliance With Medication Regimen 07/20/2019 04/23/2020 Abnormal Liver Function Test 07/20/2019 07/20/2019 Hypokalemia 07/20/2019 07/20/2019 Depressive Disorder 07/18/2019 02/05/20 20 Encephalopathy Metabolic 07/18/2019 Hyponatremia 07/18/2019 10/14/2023 Assessment & Plan (03/04/2023 8:24 AM CDT): Recheck BMP today. Hypertensive Urgency 07/18/2019 023 Hypertensive Crisis Unspecified 07/18/2019 07/24/2019 Change Mental Status 07/17/2019 020 Hyperosmolality And Hypernatremia 03/09/2019 07/24/2019 Hypertension Emergency 12/20/201806/03 Myocardial Infarction Old Encounters Date Type Department Care Team Description 09/26/2024 Refill Department of [facility] in [place], [place] [address] [place] [address] Jill Mcbride MPAS, P.A.-C. Med Refill 09/21/2024 Refill [facility] Family Medicine Res[facility] [place] [address] [place] [address] Gilbert Pena M.D. Med Refill 09/19/2024 Nurse Triage Department of [facility] in [place], [place] [address] [place] [address] Rosa Fay RMaicol misdirected 09/19/2024 Clinical Communication Department of Family Medicine in [place], [place] [address] [place] [id number] Gilbert Pena M.D. Med Question (09/19/24 left voicemail with info) 09/19/2024 Clinical Communication Department of [facility] in [address] [address] Jill Mcbride MPAS, P.A.-C. 09/14/2024 Clinical Communication Department of Family Medicine in [place], [place] [address] [place] [address] Gilbert Pena M.D. Follow-up Orders 08/18/2024 Results Follow-Up Department of [facility] in [address] [phone] Jill Mcbride MPAS, P.A.-C. DX Chest AP or PA and Lateral 2 Views, ECG 12 Lead, Lipid Panel, Basic Metabolic Panel 08/18/2024 Clinical Communication Department of Cardiovascular Diseases in [place], [place] [address] [address] Sin Pettit M.D. Curbside Consultation 08/17/2024 8:37 AM CDT - 08/17/2024 11:59 PM CDT Hospital Encounter Department of Laboratory Medicine in [address] [phone] Jill Mcbride MPAS, P.A.-C. 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 (Stable Angina/Angina Of Exertion); Coronary Stent Status Post; Other Chest Pain Discharge Disposition: Home or Self Care 08/17/2024 8:37 AM CDT - 08/17/2024 11:59 PM CDT Hospital Encounter Department of Laboratory Medicine in [address] [phone] Jill Mcbride MPAS, P.A.-C. 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 (Stable Angina/Angina Of Exertion); Coronary Stent Status Post; Hypertensive Heart And Chronic Kidney Disease With Heart Failure And Stage 1 To 4 Chronic Kidney Disease Or Unspecified Chronic Kidney Disease (HCC) Discharge Disposition: Home or Self Care 08/17/2024 8:28 AM CDT - 08/17/2024 8:36 AM CDT Hospital Encounter Department of Radiology in [address] [address] Jill Mcbride MPAS, P.A.-C. Other Chest Pain Discharge Disposition: Home or Self Care 08/17/2024 8:00 AM CDT Office Visit Department of [facility] in [address] [phone] Jill Mcbride MPAS, P.A.-C. Hypertensive Heart And Chronic Kidney Disease With Heart Failure And Stage 1 To 4 Chronic Kidney Disease Or Unspecified Chronic Kidney Disease (HCC) (Primary Dx); 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 (Stable Angina/Angina Of Exertion); Coronary Stent Status Post; Other Chest Pain; Diabetes Mellitus Type 2 Peripheral Neuropathy (HCC); Morbid Obesity Body Mass Index 45.0-49.9 Adult (HCC); Bipolar Disorder (HCC); Chronic Combined Systolic (Congestive) And Diastolic (Congestive) Heart Failure (HCC) from Last 3 Months Immunizations Immunization Administration Dates Next Due HepA Adult 07/22/2023(Deferred: Patient Ref used) HepB Adult 02/01/2015 HepB Adult (HEPLISAV-B) 05/01/2024,07/21(Deferred: Patient Refused) PCV13 02/01/2015 PPSV23 02/13/2020 RZV (SHINGRIX) 07/22/2023(Deferred: Patient Ref used) SARS-COV-2 (COVID-19) - MODE RNA (12 YEARS AND OLDER) Fall Seasonal 05/01/2024 SARS-COV-2 (COVID-19) - PFIZ ER BIVALENT TS(Discontinued)(12 YEARS OR OLDER) 03/24/2022 Tdap 03/24/2022,07/06/2011 influenza trivalent vaccine (6 months and older)(PF) 05/01/2024 influenza vaccine quad (FLUZONE/FLUARIX) (6 months and older)(PF) 02/19/2023,02/13/2020,03/10/2019,2018,01/25/2016,02/01/2015 Family History Medical History Relation Name Comments Heart disease Father's Brother Heart disease Father's Sister Stroke Father's Sister CABG - Coronary artery bypass graft Mother mom Heart disease Mother mom Thyroid disease Mother mom Relation Name Status Comments Father's Brother Father's Sister Mother mom Social History Tobacco Use Types Packs/Day Years Used Date Smoking Tobacco: Former Passive Smoke Exposure: Past Smokeless Tobacco: Former Tobacco Cessation:Counseling Given: Not Answered Alcohol Use Standard Drinks/Week Comments Not Currently 0 (1 standard drink = 0.6 oz pur e alcohol) 15 years free of alcohol [facility] [employer] Answer Date Recorded In the past 12 months has e [employer], gas, oil, or water [employer] threatened to shut off services in your [...] your living situation today? I have a [facility] place to live 07/22/2023 Education Answer Date Recorded What is the highest level of school you have completed or the highest degree you have received? 12th grade 10/24/2020 Sex and Gender Information Value Date Recorded Sex Assigned at Male 05/13/2023 11:36 AM FORCE ADJUSTMENT SUPERVISOR Legal Sex Male 9:32 PM FORCE ADJUSTMENT SUPERVISOR Gender Identity Male 05/13/2023 11:36 AM FORCE ADJUSTMENT SUPERVISOR Sexual Orientation Straight 05/13/2023 11 :36 AM FORCE ADJUSTMENT SUPERVISOR Last Filed Vital Signs Vital Sign Reading Time Taken Comments Blood Pressure 152/87 08/17/2024 7:43 AM CDT Pulse 73 08/17/2024 7:43 AM CDT Temperature 35.8 C (96.4 F) 08/17/2024 7:37 AM CDT Respiratory Rate 20 08/17/2024 7:37 AM CDT Oxygen Saturation 97% 11/14/2023 8:00 AM CDT Inhaled Oxygen Concentration - - Weight 102 kg (224 lb 13.9 oz) 08/17/2024 7:37 A M CDT Height 170.5 cm (5' 7.13) 08/17/2024 7:37 AM CD T Body Mass Index 35.09 08/17/2024 7:37 AM CDT Plan of Treatment Health Maintenance Due Date Last Done Comments CT Colonography 1964 Cologuard 1964 FIT 1964 Visit: Medicare Annual Wellness 1965 Hepatitis A Vaccines (1 of 2 - Risk 2-dose series) 1983 Zoster Vaccines (1 of 2) 2014 Urine Albumin 12/05/2022 12/05/2021, 06/2 08/2020, 02/05/2020 Depression Screening (Annual PHQ-2) 05/03/2024 RSV vaccine - (32-36 weeks) or 60+ years (1 - Risk 60-74 years 1-dose series) 2024 Hepatitis B Vaccines (3 of 3 - Risk 3-dose series) 06/26/2024 05/01/2024, 02/01/2015 Dilated Eye Exam 07/19/2024 07/20/2023 (Per formed elsewhere), 08/20/2022 (Performed elsewhere), 02/25/2021 Diabetic Office Visit with Foot Exam 08/03/2024 08/04/2023, 08/04/2023, 07/05/2023, Additional history exists Hemoglobin A1C 10/30/2024 05/01/2024, 05/0 06/2023, 05/31/2023, Additional history exists Office Visit for Blood Pressure Check / Re-check 11/16/2024 08/17/2024 Pneumococcal vaccine (50+ years) (3 of 3 - PCV20 or PCV21) 02/12/2025 02/13/2020, 02/01/2015 PSA: Prostate Cancer Screening 05/01/2025 05/01/2024, 02/05/2020 Creatinine Level (Kidney Function Test) 08/17/2025 08/17/2024, 05/01/2024, 11/14/2023, Additional history exists Potassium Level 08/17/2025 08/17/2024, 04/04, 11/14/2023, Additional history exists Sodium Level 08/17/2025 08/17/2024, 04/04, 11/14/2023, Additional history exists Visit: Chronic Disease, age 18+ 08/17/2025 08/17/2024, 08/17/2024 Colonoscopy 01/15/2028 01/14/2018 Colorectal Cancer Screening 01/15/2028 Lipid (Cholesterol) Screening 08/17/2029 08/17/2024, 05/01/2024, 06/01/2023, Additional history exists DTaP,Tdap,and Td Vaccines (3 - Td or Tdap) 03/24/2032 03/24/2022, 07/06/2011 COVID-19 Vaccine Completed 05/01/2024, , 03/24/2022, Additional history exists Hepatitis C Screening Completed 05/01/2024 Influenza Vaccine Completed 05/01/2024, , 02/13/2020, Additional history exists IPV Vaccines Aged Out No longer eligi ble based on patient's age to complete this topic Medical Devices Implanted Type Area [place]t Device Identifier Shelf Expiration Date Model / Serial / Lot Knee Implant Knee Implant Knee Procedures Procedure Name Priority Date/Time Associated Diagnosis Comments BASIC METABOLIC PANEL, S/P Routine 08/17/2024 8:43 AM CDT Hypertensive Heart And Chronic Kidney Disease With Heart Failure And Stage 1 To 4 Chronic Kidney Disease Or Unspecified Chronic Kidney Disease (HCC) LIPID PANEL, S Routine 08/17/2024 8:43 AM CDT 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 (Stable Angina/Angina Of Exertion) Coronary Stent Status Post DX CHEST AP OR PA AND LATERAL 2 VIEWS RAD - Routine (most inpatients and all outpatients) 08/17/2024 8:38 AM CDT Other Chest Pain ECG Routine 08/17/2024 8:33 AM CDT 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 (Stable Angina/Angina Of Exertion) Coronary Stent Status Post Other Chest Pain HCV AB SCRN W/REFLEX TO HCV PCR, S Routine 05/01/2024 4:44 PM FORCE ADJUSTMENT SUPERVISOR Screening Test Laboratory HEMOGLOBIN A1C, B Routine 05/01/2024 4:4 4 PM FORCE ADJUSTMENT SUPERVISOR Diabetes Mellitus Type 2 Peripheral Neuropathy (HCC) PROSTATE-SPECIFIC AG (PSA) SCRN, S Routine 05/01/2024 4:44 PM FORCE ADJUSTMENT SUPERVISOR Screening Examination Prostate Cancer ALBUMIN, RANDOM, U Routine 12/05/2021 7:42 AM CDT Diabetes Mellitus Type 2 Hyperglycemia (HCC) from Last 3 Months or Most Recently Relevant to Health Maintenance Results * (ABNORMAL) Lipid Panel (08/17/2024 8:43 AM CDT) Triglycerides 159(H) mg/dL 08/17/2024 1:12 PM CDT OWAT Comment: ----REFERENCE VALUE---- Normal: <150 mg/dL Borderline High: 150-199 mg/dL High: 200-499 mg/dL Very High: > or =500 mg/dL Cholesterol, Total 149 mg/dL 2024 1:12 PM CDT OWAT Comment: ----REFERENCE VALUE---- Desirable: < 200 mg/dL Borderline High: 200 - 239 mg/dL High: > or = 240 mg/dL Cholesterol, LDL, Calculated 94 mg/dL 08/17/2024 1:12 PM CDT OWAT Comment: ----REFERENCE VALUE---- Desirable: <100 mg/dL Above Desirable: 100-129 mg/dL Borderline High: 130-159 mg/dL High: 160-189 mg/dL Very High: >=190 mg/dL ----ADDITIONAL INFORMATION---- LDL cholesterol calculated using the Lynn/NIH equation. Cholesterol, HDL 27(L) >=40 mg/dL 08/18/19 1:12 PM CDT OWAT Cholesterol, Non-HDL, Calculated 122 mg/dL 08/17/2024 1:12 PM CDT OWAT Comment: ----REFERENCE VALUE---- Desirable: <130 mg/dL Above Desirable: 130-159 mg/dL Borderline High: 160-189 mg/dL High: 190-219 mg/dL Very High: > or =220 mg/dL Fasting (8 HR or more) Yes 08/17/2024 8:43 AM CDT OWAT Blood (Blood, Venous) 08/17/2024 8:43 AM CDT 08/17/2024 12:40 PM CDT Jill ZAMORA, P.A.-C. LAB BLOOD ADD-ON Final Result [facility] [address] [place] [address], [place] OWAT [facility] in [place] [address] [place] [address] * (ABNORMAL) Basic Metabolic Panel (08/17/2024 8:43 AM CDT) Potassium, P 3.2(L) 3.6 - 5.2 mmol/L 08/17/2024 1:12 PM CDT OWAT Sodium, P 140 135 - 145 mmol/L 08/17/2024 1:12 PM CDT OWAT Chloride, P 106 98 - 107 mmol/L 08/17/2024 1:12 PM CDT OWAT Bicarbonate, P 23 22 - 29 mmol/L 08/17/2024 1:12 PM CDT OWAT Anion Gap, P 11 7 - 15 08/17/2024 1:12 PM CDT OWAT BUN (Blood Urea Nitrogen), P 20 8 - 24 mg/dL 08/17/2024 1:12 PM CDT OWAT Creatinine 1.70(H) 0.74 - 1.35 mg/dL 08/17/2024 1:12 PM CDT OWAT Estimated GFR (eGFR) 46(L) >=60 mL/min/BSA 08/17/2024 1:12 PM CDT OWAT Comment: Estimated GFR calculated using the 2020 CKD_EPI creatinine equation. Calcium, Total, P 9.3 8.8 - 10.2 mg/dL 08/17/2024 1:12 PM CDT OWAT Glucose, P 118 70 - 140 mg/dL 08/17/2024 1:12 PM CDT OWAT Blood (Blood, Venous) 08/17/2024 8:43 AM CDT 08/17/2024 12:40 PM CDT us Jill ZAMORA, P.A.-C. LAB BLOOD ADD-ON Final Result [facility] [address] [place] [address], [facility] OWAT [facility] in [place] [address] [place] [id number] * DX Chest AP or PA and Lateral 2 Views (08/17/2024 8:38 AM CDT) Anatomical Region Laterality Modality Chest, Thoracic RST LOS, Tho racic ARZ LOS, Thoracic FLA LOS N/A Digital Radiography Impressions 08/17/2024 8:48 AM CDT Comparison 11/24/2021. No pleural effusion, pneumothorax or focal pneumonic consolidation. Heart size normal. Narrative 08/17/2024 8:48 AM CDT EXAM: DX CHEST AP OR PA AND LATERAL 2 VIEWS Procedure Note Jr Rebolledo M.D. - 08/17/2024 EXAM: DX CHEST AP OR PA AND LATERAL 2 VIEWS IMPRESSION: Comparison 11/24/2021. No pleural effusion, pneumothorax or focal pneumonic consolidation. Heartsize normal. Jill ZAMORA P.A.-C. IMG DIAGNOSTIC IM AGING PROCEDURES Final Result * ECG 12 Lead (08/17/2024 8:33 AM CDT) Ventricular Rate ECG/Min 67 BPM MUSE PA Interval 272 ms MUSE QRSD Interval 166 ms MUSE QT Interval 460 ms MUSE QTC Interval 486 ms MUSE P [place] 30 degrees MUSE R [place] -83 degrees MUSE T Wave [place] -17 degrees MUSE 08/17/2024 8:33 AM CDT 08/17/2024 8:49 AM CDT Impressions MUSE - 08/17/2024 8:49 AM CDT Sinus rhythm with 1st degree A-V block Right bundle branch block Left anterior fascicular block Bifascicular block When compared with ECG of 31-May-2023 07:52, Vent. rate has decreased by 31 bpm T wave inversion no longer evident in High Lateral leads QT has shortened Reviewed by LANEY He Narrative Procedure Note Jeffry Recinos M.D., Ph.D. - 08/17/2024 IMPRESSION: Sinus rhythm with 1st degree A-V block Right bundle branch block Left anterior fascicular block Bifascicular block When compared with ECG of 31-May-2023 07:52, Vent. rate has decreased by 31 bpm T wave inversion no longer evident in High Lateral leads QT has shortened Reviewed by LANEY He Jill ZAMORA, P.A.-C. ECG ORDERABLES F inal Result MUSE NA * PSA (Prostate-Specific Antigen) Screen (05/01/2024 4:44 PM FORCE ADJUSTMENT SUPERVISOR) Prostate-Specific Ag 1.4 <=3.5 ng/mL 05/01/2024 6:28 PM FORCE ADJUSTMENT SUPERVISOR OW Comment: ----ADDITIONAL INFORMATION---- The testing method is an electrochemiluminescence assay manufactured by [employer] and performed on the Modular or Jacob system. Values obtained with different assay methods or kits may be different and cannot be used interchangeably. Test results cannot be interpreted as absolute evidence for the presence or absence of malignant disease. Blood (Blood, Venous) 05/01/2024 4:44 PM FORCE ADJUSTMENT SUPERVISOR 05/01/2024 5:56 PM FORCE ADJUSTMENT SUPERVISOR Jill ZAMORA P.A.-C. LAB BLOOD ADD-ON Final Result [facility] [address] [place] [address], [facility] in [place] [address] [place] [address] * HCV Ab Scrn w/Reflex to HCV PCR, Serum (05/01/2024 4:44 PM FORCE ADJUSTMENT SUPERVISOR) Pathologist [facility] HCV Ab Screen, S Negative Negative 05/01/2024 7:24 PM FORCE ADJUSTMENT SUPERVISOR MK[facility] Blood (Blood, Venous) 05/01/2024 4:44 PM FORCE ADJUSTMENT SUPERVISOR 05/01/2024 7:02 PM FORCE ADJUSTMENT SUPERVISOR Narrative [facility] - 05/01/2024 7:24 PM FORCE ADJUSTMENT SUPERVISOR Specimen Information: Specimen ID: [id number] Specimen Type: Blood Specimen Collection Start Date: 05/01/2024 4:44 PM Specimen Received Date: 05/01/2024 7:02 PM Specimen ID: [id number] Specimen Type: Blood Specimen Collection Start Date: 05/01/2024 4:44 PM Specimen Received Date: 05/01/2024 6:56 PM Jill ZAMORA, P.A.-C. LAB MICROBIOLOGY - BLOOD ORDERABLES Final Result Performing Organization Address [facility] Co de Phone Number [facility] [address] [place] [address], [place] [facility] in [place] [address] [place] [address] * (ABNORMAL) Hemoglobin A1c (05/01/2024 4:44 PM FORCE ADJUSTMENT SUPERVISOR) Hemoglobin A1c, B 5.9(H) 4.2 - 5.6 % 05/01/2024 6:26 PM FORCE ADJUSTMENT SUPERVISOR OWAT Comment: Hemoglobin A1c values of 5.7-6.4 percent indicate an increased risk for developing diabetes mellitus. In diabetic patients, HbA1c goals should be discussed with healthcare provider. Blood (Blood, Venous) 05/01/2024 4:44 PM FORCE ADJUSTMENT SUPERVISOR 05/01/2024 5:56 PM FORCE ADJUSTMENT SUPERVISOR Jill ZAMORA, P.MikhailC. LAB BLOOD ADD-ON Final Result Performing Organization Address [facility] Co de Phone Number [facility] [address] [place] [address], [place] OW[place] [facility] in [place] [address] [place] [address] * (ABNORMAL) Albumin, Random, Urine (12/05/2021 7:42 AM CDT) Albumin, Random, U 37.0 mg/L 2021 12:55 PM CDT MKTO Comment: ----ADDITIONAL INFORMATION---- This test has been modified from the flour blender's instructions. Its performance characteristics were determined by [facility] in a manner consistent with CLIA requirements. This test has not been cleared or approved by the U.S. Food and Drug Administration. Creatinine 87 mg/dL 12/05/2021 12:55 PM CDT MKTO Albumin/Creatinine Ratio 43(H) <17 mg/g 12/05/2021 12:55 PM CDT MKTO Urine (Urine, Midstream) 12/05/2021 7:42 AM CDT 12/05/2021 11:55 AM CDT us Tima Etienne M.D. LAB URINE ORDERABLES Final Resul t [facility] [address] [place] [address], [place] [facility] in [place] [address] [place] [address] from Last 3 Months or Most Recently Relevant to Health Maintenance Insurance MEDICARE Advance Directives For more information, please contact: [phone] * Full Code (Latest Code Status on File) Date Activated Date Inactivated Comments 06/02/2023 3:15 PM 06/03/2023 7:02 PM Question Answer Comments Full Code: Discussed * Full Code Date Activated Date Inactivated Comments 12/01/2022 9:56 PM 12/04/2022 2:32 PM Question Answer Comments Full Code: Discussed * Full Code Date Activated Date Inactivated Comments 11/24/2021 3:57 AM 11/27/2021 3:50 PM Question Answer Comments Full Code: Discussed * Full Code Date Activated Date Inactivated Comments 02/09/2021 3:50 AM 02/11/2021 3:12 PM Question Answer Comments Full Code: Discussed * Full Code Date Activated Date Inactivated Comments 02/09/2021 3:49 AM 02/09/2021 3:49 AM Question Answer Comments Full Code: Discussed Care Teams Music Orchestrator Relationship Specialty Start Date End Date Jill Mcbride MPAS, P.A.-C. [address] [place] [address] [place] [phone] PCP - General Internal Medicine 04/03/24
--- OUTSIDE RECORDS SUMMARY | 2024-10-21 08:25 | XMS_ITS | Encounter Summary ---
Author Organization [facility] Address [address] [place] [address] Care Team Providers Care Manager Foreign Name Role Phone Jill Mcbride P.A.-C. Primary Care Pro vider Reason for Visit * Reason Comments Med Refill Encounter Details Date Type Department Care Team (Late st Contact Info) Description 09/21/2024 Refill [facility] Family Medicine [place]idency [place] [address] [address] Gilbert Pena M.D. [address] [place] [address] Med Refill Social History Tobacco Use Types Packs/Day Years Used Date Smoking Tobacco: Former Passive Smoke Exposure: Past Smokeless Tobacco: Former Alcohol Use Standard Drinks/Week Comments Not Currently 0 (1 standard drink = 0.6 oz pur e alcohol) 15 years free of alcohol [facility] Utilities Answer Date Recorded In the past 12 months has e electric, gas, oil, or water company threatened to shut off services in your [...] your living situation today? I have a [facility] place to live 07/22/2023 Education Answer Date Recorded What is the highest level of school you have completed or the highest degree you have received? 12th grade 10/24/2020 Sex and Gender Information Value Date Recorded Sex Assigned at Male 05/13/2023 11:36 AM STRIP DEBURRER Legal Sex Male 9:32 PM STRIP DEBURRER Gender Identity Male 05/13/2023 11:36 AM STRIP DEBURRER Sexual Orientation Straight 05/13/2023 11 :36 AM STRIP DEBURRER documented as of this encounter Miscellaneous Notes * Telephone Encounter - Nereida Cheng V. - 09/24/2024 6:33 AM CDT #90/3 sent Receipt confirmed by pharmacy (08/18/2024 10:35 AM CDT) documented in this encounter Plan of Treatment Not on file documented as of this encounter Visit Diagnoses Not on filedocumented in this encounter Additional Health Concerns Assessment Noted Time PHQ-9 Depression Total Score: 20 10/24/ 021 7:40 AM CDT documented as of this encounter Care Teams Manager Foreign Relationship Specialty Start Date End Date Jill Mcbride MPAS, P.A.-C. [address] [place] [address] [place] [address] PCP - General Internal Medicine 04/03/24 documented as of this encounter
--- OUTSIDE RECORDS SUMMARY | 2024-10-21 08:25 | XMS_ITS | Encounter Summary ---
Author Organization [facility] Address [address] [place] [address] Care Team Providers Care Hot Air Furnace Installer And Repairer Name Role Phone Jill Mcbride P.A.-C. Primary Care Pro vider Reason for Visit * Reason Onset Date Comments Follow-up Orders 09/14/2024 Encounter Details Date Type Department Care Team (Late st Contact Info) Description 09/14/2024 Clinical Communication Department of Family Medicine in [place], [place] [address] [place] [address] Gilbert Pena M.D. [address] [place] [address] Follow-up Orders Social History Tobacco Use Types Packs/Day Years Used Date Smoking Tobacco: Former Passive Smoke Exposure: Past Smokeless Tobacco: Former Alcohol Use Standard Drinks/Week Comments Not Currently 0 (1 standard drink = 0.6 oz pur e alcohol) 15 years free of alcohol [facility] Utilities Answer Date Recorded In the past 12 months has [employer], gas, oil, or water [employer] threatened to shut off services in your [...] your living situation today? I have a [facility] place to live 07/22/2023 Education Answer Date Recorded What is the highest level of school you have completed or the highest degree you have received? 12th grade 10/24/2020 Sex and Gender Information Value Date Recorded Sex Assigned at Male 05/13/2023 11:36 AM CLAMMER Legal Sex Male 9:32 PM CLAMMER Gender Identity Male 05/13/2023 11:36 AM CLAMMER Sexual Orientation Straight 05/13/2023 11 :36 AM CLAMMER documented as of this encounter Miscellaneous Notes * Telephone Encounter - Daja Aranda R.N. - 09/19/2024 12:31 PM CDT Message completed in another communication documented in this encounter Plan of Treatment Not on file documented as of this encounter Visit Diagnoses Diagnosis Diabetes Mellitus Type 2 Hyperglycemia (HCC) documented in this encounter Additional Health Concerns Assessment Noted Time PHQ-9 Depression Total Score: 20 10/24/ 021 7:40 AM CDT documented as of this encounter Care Teams Hot Air Furnace Installer And Repairer Relationship Specialty Start Date End Date Jill Mcbride MPAS, P.A.-C. [address] [facility] [place] [address] PCP - General Internal Medicine 04/03/24 documented as of this encounter
--- OUTSIDE RECORDS SUMMARY | 2024-10-21 08:25 | XMS_ITS | Encounter Summary ---
Author Organization [facility] Address [address] [place] [address] Care Team Providers Care Instrumentation And Controls Technician Name Role Phone Jill Mcbride, P.A.-CAdelina Primary Care Pro vider Encounter Details Date Type Department Care Team (Late st Contact Info) Description 09/19/2024 Clinical Communication Department of Community Internal Medicine in [place], [place] [address] [place] [address] Jill Mcbride MPAS, P.A.-CAdelina [address] [place] [address] Social History Tobacco Use Types Packs/Day Years Used Date Smoking Tobacco: Former Passive Smoke Exposure: Past Smokeless Tobacco: Former Alcohol Use Standard Drinks/Week Comments Not Currently 0 (1 standard drink = 0.6 oz pur e alcohol) 15 years free of alcohol [facility] Utilities Answer Date Recorded In the past 12 months has [email or web address] electric, gas, oil, or water [employer] threatened to shut off services in your [...] your living situation today? I have a [facility] place to live 07/22/2023 Education Answer Date Recorded What is the highest level of school you have completed or the highest degree you have received? 12th grade 10/24/2020 Sex and Gender Information Value Date Recorded Sex Assigned at Male 05/13/2023 11:36 AM FIRE ENGINE PUMP OPERATOR Legal Sex Male 9:32 PM FIRE ENGINE PUMP OPERATOR Gender Identity Male 05/13/2023 11:36 AM FIRE ENGINE PUMP OPERATOR Sexual Orientation Straight 05/13/2023 11 :36 AM FIRE ENGINE PUMP OPERATOR documented as of this encounter Plan of Treatment Not on file documented as of this encounter Visit Diagnoses Not on filedocumented in this encounter Additional Health Concerns Assessment Noted Time PHQ-9 Depression Total Score: 20 021 7:40 AM CDT documented as of this encounter Care Teams Instrumentation And Controls Technician Relationship Specialty Start Date End Date Jill Mcbride MPAS, P.A.-C. [address] [place] [phone] PCP - General Internal Medicine 04/03/24 documented as of this encounter
--- OUTSIDE RECORDS SUMMARY | 2024-10-21 08:25 | XMS_ITS | Encounter Summary ---
Author Organization [facility] Address [address] [place] [address] Care Team Providers Care Tennis Ball Coverer Hand Name Role Phone Jill Mcbride P.A.-C. Primary Care Pro vider Reason for Visit * Reason Onset Date Comments misdirected 09/19/2024 Encounter Details Date Type Department Care Team (Late st Contact Info) Description 09/19/2024 Nurse Triage Department of Community Internal Medicine in [place], [place] [address] [place] [address] Rosa Fay, RAdelinaNAdelina [address] [phone] misdirected Social History Tobacco Use Types Packs/Day Years Used Date Smoking Tobacco: Former Passive Smoke Exposure: Past Smokeless Tobacco: Former Alcohol Use Standard Drinks/Week Comments Not Currently 0 (1 standard drink = 0.6 oz pur e alcohol) 15 years free of alcohol [facility] Utilities Answer Date Recorded In the past [...] your living situation today? I have a [facility] place to live 07/22/2023 Education Answer Date Recorded What is the highest level of school you have completed or the highest degree you have received? 12th grade 10/24/2020 Sex and Gender Information Value Date Recorded Sex Assigned at Male 05/13/2023 11:36 AM ART PSYCHOTHERAPIST OR THERAPIST Legal Sex Male 9:32 PM ART PSYCHOTHERAPIST OR THERAPIST Gender Identity Male 05/13/2023 11:36 AM ART PSYCHOTHERAPIST OR THERAPIST Sexual Orientation Straight 05/13/2023 11 :36 AM ART PSYCHOTHERAPIST OR THERAPIST documented as of this encounter Miscellaneous Notes * Telephone Encounter - Rosa Fay R.N. - 09/19/2024 8:34 AM CDT Chief Complaint / Reason for Call Patient is a 59 y.o. male calling regarding misdirected. Assessment Concern: Is looking for a glucose monitor in his arm. He doesn't know where it went. But says it needs to be today because it has been too long. 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 Calling to request: He is sitting in the pharmacy waiting for the prescription. Has called twice already. The recommended disposition is Misdirected. Patient was warm transferred to [place], Patient Appointment Postbed Stitcher at the clinic for further assistance. documented in this encounter Plan of Treatment Not on file documented as of this encounter Visit Diagnoses Not on filedocumented in this encounter Additional Health Concerns Assessment Noted Time PHQ-9 Depression Total Score: 021 7:40 AM CDT documented as of this encounter Care Teams Tennis Ball Coverer Hand Relationship Specialty Start Date End Date Jill Mcbride MPAS, P.A.-C. [address] [place] [address] PCP - General Internal Medicine 04/03/24 documented as of this encounter
--- OUTSIDE RECORDS SUMMARY | 2024-10-21 08:25 | XMS_ITS | Encounter Summary ---
Author Organization [facility] Address [address] [place] [address] Care Team Providers Care Heater Helper Forge Name Role Phone Jill Mcbride P.A.-C. Primary Care Pro vider Reason for Visit * Reason Onset Date Comments Med Question 09/19/2024 09/19/24 left voi cemail with info Encounter Details Date Type Department Care Team (Late st Contact Info) Description 09/19/2024 Clinical Communication Department of Family Medicine in [place], [place] [address] [place] [address] Gilbert Pena M.D. [address] [facility] [place] [address] Med Question (09/19/24 left voicemail with info) Social History Tobacco Use Types Packs/Day Years Used Date Smoking Tobacco: Former Passive Smoke Exposure: Past Smokeless Tobacco: Former Alcohol Use Standard Drinks/Week Comments Not Currently 0 (1 standard drink = 0.6 oz pur e alcohol) 15 years free of alcohol [facility] Utilities Answer Date Recorded In [...] your living situation today? I have a [facility] place to live 07/22/2023 Education Answer Date Recorded What is the highest level of school you have completed or the highest degree you have received? 12th grade 10/24/2020 Sex and Gender Information Value Date Recorded Sex Assigned at Male 05/13/2023 11:36 AM WEB METHODS DEVELOPER Legal Sex Male 9:32 PM WEB METHODS DEVELOPER Gender Identity Male 05/13/2023 11:36 AM WEB METHODS DEVELOPER Sexual Orientation Straight 05/13/2023 11 :36 AM WEB METHODS DEVELOPER documented as of this encounter Miscellaneous Notes * Telephone Encounter - Shania Shine L.PAdelinaNAdelina - 09/19/2024 2:04 PM CDT Called and left patient a voicemail indicating that the pharmacy has received the 2 scripts for leann farfan. * Telephone Encounter - Kina Gonzalez - 09/19/2024 12:57 PM CDT Patient returning call * Telephone Encounter - Daja Aranda R.N. - 09/19/2024 12:31 PM CDT Left message for patient to return call to clinic. Does the patient need to speak to nursing? no Action needed: Prescription for the Freestyle Falguni sensors and reader have been sent to his pharmacy. * Telephone Encounter - Daja Aranda R.N. - 09/19/2024 12:30 PM CDT Refrigerator Cabinetmaker checked with pharmacy - they have now received both the reader and sensor Rxs for the Falguni Freestyle. documented in this encounter Plan of Treatment Not on file documented as of this encounter Visit Diagnoses Diagnosis Diabetes Mellitus Type 2 Hyperglycemia (HCC) documented in this encounter Additional Health Concerns Assessment Noted Time PHQ-9 Depression Total Score: 021 7:40 AM CDT documented as of this encounter Care Teams Heater Helper Forge Relationship Specialty Start Date End Date Jill Mcbride MPAS, P.A.-C. [address] [place] [address] [place] [address] PCP - General Internal Medicine 04/03/24 documented as of this encounter
--- OUTSIDE RECORDS SUMMARY | 2024-10-21 08:25 | XMS_ITS | Clinical Summary ---
Author Organization [facility] Address [address] [place] [id number] Care Team Providers Care Offal Separator Name Role Phone Anselmo Altman MD Primary Care Provider Allergies Active Allergy Reactions Criticality Noted Date Comments Lisinopril Cough Low 07/15/2017 Methylphenidate Hcl Hallucinations Medium 02/05/2020 Capsules caused depressed mood Medications BiPapIndications:O bstructive sleep apnea BIPAP machine for home use at pressure: Epap 8, IPAP max 25, PS 4-8 rise time 3 , Heated humidifier x 1, Humidifier chamber x 1, 1 Device 12/21/19 19 Active albuterol HFA 90 mcg/actuation inhaler Inhale 2 Puffs by mouth 4 times daily if needed. Active BD TRI 2ND GEN PEN NEEDLE 32 gauge x Indications:D iabetes mellitus type 2, uncontrolled, with complications Inject subcutaneous. Inject insulin subcutaneously 3 times daily 1 box 12 08/16/19 20 Active lancets (ACCU-CHEK SOFTCLIX LANCETS)Indication s:Diabetes mellitus type 2, uncontrolled, with complications Dispense meter, test strips, lancets covered by pt ins. E11.65 NIDDM type II, uncontrolled - Test 3 times/day, Reason: High A1C 100 Each 09/18/19 20 Active ACCU-CHEK GUIDE TEST STRIPS stripIndications:D iabetes mellitus type 2, uncontrolled, with complications USE TO TEST BLOOD SUGARS FOUR TIMES DAILY 400 Strip 2 04/30/20 20 Active acetaminophen (TYLENOL EXTRA STRGTH) 500 mg tablet Take 500-1,000 mg by mouth every 6 hours if needed. Max acetaminophen dose: 4000mg in 24 hrs. Active multivitamins-mine rals-lutein (CENTRUM SILVER) 0.4-300-250 mg-mcg-mcg tab Take 1 Tablet by mouth once daily. Active aspirin chewable 81 mg chewable tabletIndications: NSTEMI (non-ST elevated myocardial infarction) (HC) Chew 1 Tablet (81 mg) by mouth once daily. 100 tablet. 3 07/23/19 21 Active rosuvastatin (CRESTOR) 20 mg tablet Take 20 mg by mouth once daily. Active carvediloL (COREG) 25 mg tabletIndications: HTN (hypertension) Take 1 and one-half tablet (37.5 mg) by mouth 2 times daily with meals. 270 Tablet 3 1 4:31 PM CDT 12/05/19 21 Active Additional Information Patient taking differently: 25 mgOral TWICE DAILY WITH MEALS, Reported on 01/06/2024 Insulin Syringe-Needle U-100 (BD Insulin Syringe Ultra-Fine) 0.5 mL 31 gauge x 5/16 Use to inject insulin as directed. 100 Each 1 12:26 PM CDT 12/06/19 21 Active gabapentin (NEURONTIN) 100 mg capsule Take 200 mg by mouth three times daily. Active Mounjaro 7.5 mg/0.5 mL pen Inject 7.5 mg subcutaneous once weekly. 10/27/19 24 Active isosorbide mononitrate (IMDUR) 60 mg extended release tablet 24 hour Take 60 mg by mouth once daily. Active dextroamphetamine- amphetamine (ADDERALL) 20 mg tablet Take 1 Tablet by mouth 2 times daily at 7 AM and Noon. 08/15/19 23 Active ezetimibe (ZETIA) 10 mg tabletIndications: ASCVD (arteriosclerotic cardiovascular disease) Take 1 Tablet (10 mg) by mouth once daily. 90 Tablet 3 01/06/20 24 Active nitroglycerin (NITROSTAT) 0.4 mg sublingual tabletIndications: ASCVD (arteriosclerotic cardiovascular disease) Place 1 Tablet (0.4 mg) under the tongue every 5 minutes if needed for Chest Pain. 25 Tablet 3 01/06/20 24 Active amLODIPine (NORVASC) 10 mg tabletIndications: HTN (hypertension) Take 1 Tablet (10 mg) by mouth once daily in the evening. 90 Tablet 3 01/06/20 24 Active insulin glargine, U-100, (LANTUS) 100 unit/mL injectionIndicatio ns:Type 2 diabetes mellitus without complication, without long-term current use of insulin (HC) Inject 26 units subcutaneous every 12 hours. 60 mL 2 01/06/20 24 Active Farxiga 10 mg tabletIndications: Type 2 diabetes mellitus without complication, without long-term current use of insulin (HC) Take 1 Tablet (10 mg) by mouth once daily. 90 Tablet 3 01/06/20 24 Active blood sugar diagnostic (Blood Glucose Test) stripIndications:D iabetes mellitus type 2 with complications (HC) As directed. Test 4 times per day. 200 Each 6 02/16/20 24 Active blood-glucose meterIndications:D iabetes mellitus type 2 with complications (HC) As directed. Dispense meter covered by pts insurance. 1 Each 02/16/20 24 Active lancetsIndications :Diabetes mellitus type 2 with complications (HC) As directed. Test 4 times per day. 200 Each 12 02/16/20 24 Active Active Problems Patient Care Coordination No te Formatting of this note migh t be different from the original. HF/Structural Research Eligibility Review Date: 05/18/19 The patient did not qualify for any currently enrolling studies at the time of this review. Problem Noted Date Diagnosed Date RUBY (acute kidney injury) 12/05/2020 Chest pain 12/03/2020 Acute on chronic combined sy stolic (congestive) and diastolic (congestive) heart failure 08/07/2020 Diastolic dysfunction 07/12/2020 Ischemic cardiomyopathy 07/12/2020 Uncontrolled type 2 diabetes mellitus with complication, with long-term current use of insulin 07/11/2020 Coronary artery disease invo lving [place] coronary artery of [place] heart with unstable angina pectoris 07/11/2020 Hyperlipidemia with target LDL less than 70 07/01 Depression with anxiety 07/11/2020 Hyponatremia with increased serum osmolality 10/2018 Essential hypertension 03/09/2019 Hypertensive emergency 01/25/2019 Chronic combined systolic and diastolic heart fa ilure 12/21/2018 Hypertensive emergency 12/20/2018 s/p left total knee replacem ent on 09/12/[address] Uvaldo Leavitt 10/24/2018 Status post right total knee arthroplasty, DOS: 04/01/[address] Leavitt 05/12/2018 Morbid obesity with BMI of 45.0-49.9, adult 03/05 Coronary artery disease 04/01/2018 Overview (08/05/2020): 07/2020 NSTEMI, recommended for CABG, but declined given he refuses blood products. S/p PCI to LAD 07/12/20; mRCA with 50% stenosis - dPR was 0.97 hence no PCI was performed 08/05/2020 presented as STEMI>no intervention Arthritis of left knee 01/11/2018 Arthritis of right knee 01/11/2018 Right knee pain 01/11/2018 Left knee pain 12/29/2017 Chondromalacia 12/29/2017 NSTEMI (non-ST elevated myocardial infarction) 0 12/23/2017 VANESSA 01/23/2014 AHI-114 02/02/2014 DM w/o complication type II 12/11/2013 Obesity, unspecified 01/12/2011 Depression ADHD (attention deficit hyperactivity disorder) Bipolar 2 disorder Resolved Problems Problem Noted Date Diagnosed Date Resolved Date Status post left knee replacement 09/12/2018 05/18/2019 RUBY (acute kidney injury) 04/04/2018 RUBY (acute kidney injury) 04/03/2018 Degenerative tear of medial meniscus of both knees 01/25/2018 01/25/2019 Degenerative tear of medial meniscus of left knee 12/29/2017 01/25/2019 Hypertension 04/01/2018 Screening for colon cancer 0 01/25/2019 Primary osteoarthritis of right knee 01/25/2019 Immunizations Immunization Administration Dates Next Due Hepatitis B (Adult) 02/01/2015 Influenza, IIV4 03/10/2019, 9,01/05/2016,2014 Influenza, IIV4 (=>6mos) MDV 03/12/2020 Pneumococcal conj 13-Valent (Prevnar 13) 02/01/2015 Tdap 07/06/2011 Family History Medical History Relation Name Comments Good Health Brother 6 Good Health Brother 7 Good Health Brother 8 Good Health Brother 9 Good Health Brother 10 Good Health Daughter 4 Good Health Daughter 5 Diabetes Father Unknown Maternal Grandfather Unknown Maternal Grandmother Diabetes Mother Premature CHD (under age 60) Mother CABG at 59; PCI to vein graft just after surgery Thyroid Disease Mother Stroke Paternal Aunt 1 Premature CHD (under age 60) Paternal Aunt 2 multiple PCI Unknown Paternal Grandfather Unknown Paternal Grandmother Premature CHD (under age 60) Paternal Uncle [place] Good Health Sister 3 Good Health Sister 4 Good Health Son 4 Good Health Son 5 Good Health Son 6 Relation Name Status Comments Brother 1 Alive Brother 2 Alive Brother 3 Alive Brother 4 Alive Brother 5 Alive Brother 6 Brother 7 Brother 8 Brother 9 Brother 10 Daughter 1 Alive Daughter 2 Alive Daughter 3 Daughter 4 Daughter 5 Father Alive Maternal Grandfather Maternal Grandmother Mother Alive Paternal Aunt 1 Paternal Aunt 2 Paternal Grandfather Paternal Grandmother Paternal Uncle Sister 1 Alive Sister 2 Alive Sister 3 Sister 4 Son 1 Alive Son 2 Alive Son 3 Alive Son 4 Son 5 Son 6 Social History Tobacco Use Types Packs/Day Years Used Date Smoking Tobacco: Never Cigarettes Qu it: 05/03/2003 Smokeless Tobacco: Never Tobacco Cessation:Counseling Given: Yes Comments:hx marijuana quit ~2004 Alcohol Use Standard Drinks/Week Comments Not Currently 0 (1 standard drink = 0.6 oz pure alcohol) 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 07/26/14. no drinking at all for 7 yrs PHQ-2 Answer Date Recorded PHQ-2 Score 4 02/22/2019 Social Connections Answer Date Recorded Do you often feel lonely or isolated from those around you? 4 01/05/2024 Financial Resource Strain Answer Date R ecorded Difficulty of Paying Living Expenses Not on file 01/05/2024 Difficulty of Paying Living Expenses 3 01/05/2024 Food Insecurity Answer Date Recorded Do you worry your food will run out before you are able to buy more? 2 01/05/2024 Transportation Needs Answer Date Record ed Does lack of transportation keep you from medica l appointments? 1 01/05/2024 Does lack of transportation keep you from work, meetings or getting things that you need? 2 01/05/2024 Housing Stability Answer Date Recorded What is your housing situation today? 1 01/05/2024 Utilities Answer Date Recorded Do you have trouble paying f or utilities (for example, heat, electricity, water, phone)? 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 Gender Identity Not on file Sexual Orientation Not on file Occupation Industry Job Start Date Job End Date unemployed Not on file Not on file Not on file Obstetrics History Last Filed Vital Signs Vital Sign Reading Time Taken Comments Blood Pressure 100/62 01/05/2024 8:36 AM CDT Pulse 64 01/05/2024 8:36 AM CDT Temperature 36.8 C (98.2 F) 12/05/2020 11:45 AM CDT Respiratory Rate 36 08/14/2022 11:26 AM CDT Oxygen Saturation 95% 08/14/2022 11:26 AM CDT Inhaled Oxygen Concentration - - Weight 121.6 kg (268 lb) 01/05/2024 8:36 AM CDT Height 170.2 cm (5' 7) 01/05/2024 8:36 AM CDT Body Mass Index 41.97 01/05/2024 8:36 AM CDT Plan of Treatment Health Maintenance Due Date Last Done Comments HIV for age 15-65 1979 Zoster (shingles) series for age 50+ (1 of 2) 2014 Hepatitis B series for 19+ ( 2 of 3 - 19+ 3-dose series) 03/01/2015 02/01/2015 Pneumococcal series for age 50+ (2 of 2 - PPSV23) 03/29/2015 02/01/2015 Depression screening for age 12+ 02/23/2020 02/22/2019, 02/22/2019, 01/27/2019, Additional history exists Tetanus booster 07/05/2021 07/06/2011, 07/06/2011 RSV vaccine for adults or (1 - Risk 60-74 years 1-dose series) 2024 Influenza Vaccine (Season Ended) 2025 03/12/2020, 03/10/2019, 01/26/2019, Additional history exists BMI (ht and wt on same day) for age 18+ 01/04/2025 01/05/2024, 07/22/2020, 02/22/2019, Additional history exists Lipids for age 45-75 12/04/2025 12/04/2020, 07/12/2020, 02/01/2015, Additional history exists Colonoscopy through age 75 01/15/2028 01/14/2018 Tdap Completed 07/06/2011 Hepatitis C screening for ag e 18-79 Completed 12/27/2017 COVID-19 vaccine series Completed 05/01/20 24, 02/19/2023, 03/24/2022, Additional history exists Goals Goal Patient Goal Type Associated Problems Recent Progress Patient-Stated? Author BLOOD PRESSURE - MAINTAINS BP less than 140/90 Blood Pressure Najma Shaw PA Medical Devices Implanted Type Area Vascular Physician Device Identifier Shelf Expiration Date Model / Serial / Lot Cmnt Bone Simplex P 1pk - [id number] Implanted:Qty: 2 on 04/01/2018 by Uvaldo Leavitt MD at [facility] [place] Right: Knee [employer] 07/31/2020 6191-1-00 1# / / [id number] Fem Rt Sz4 Triathlon Cruc Ret Co Cr - [id number] Implanted:Qty: 1 on 04/01/2018 by Uvaldo Leavitt MD at [facility] [place] Right: Knee [employer] 12/12/2022 5510-F-40 2# / / [id number] Baseplate Tib Sz4 Triathlon Pe - [id number] Implanted:Qty: 1 on 04/01/2018 by Uvaldo Leavitt MD at [facility] [place] Right: Knee [employer] 02/09/2023 5521-B-40 0# / / [id number] Patella [id number] Triathlon Asymmetric X3 - [id number] Implanted:Qty: 1 on 04/01/2018 by Uvaldo Leavitt MD at [facility] [place] Right: Knee [employer] 01/27/2023 5551-G-32 0# / / [id number] Insert Knee Sz4 11mm Triathloncondyle Stbz X3 - [id number] Implanted:Qty: 1 on 04/01/2018 by Uvaldo Leavitt MD at [facility] [place] Right: Knee [employer] 01/22/2023 5531-G-41 1# / / [id number] Insert Knee Sz4 11mm Triathloncondyle Stbz X3 - [id number] Implanted:Qty: 1 on 09/12/2018 by Uvaldo Leavitt MD at [facility] [place] Left: Knee [employer] 06/30/2023 5531-G-41 1# / / [id number] Cmnt Bone Simplex P 1pk - [id number] Implanted:Qty: 2 on 09/12/2018 by Uvaldo Leavitt MD at [facility] [place] Left: Knee [employer] 11/30/2020 6191-1-00 1# / / [id number] Patella [id number] Triathlon Asymmetric X3 - [id number] Implanted:Qty: 1 on 09/12/2018 by Uvaldo Leavitt MD at [facility] [place] Left: Knee [employer] 04/17/2023 5551-G-35 0# / / [id number] Baseplate Tib Sz4 Triathlon Pe - [id number] Implanted:Qty: 1 on 09/12/2018 by Uvaldo Leavitt MD at [facility] [place] Left: Knee [employer] 06/21/2023 5521-B-40 0# / / [id number] Fem Lt Sz4 Triathlon Cruc Ret Co Cr - [id number] Implanted:Qty: 1 on 09/12/2018 by Uvaldo Leavitt MD at [facility] [place] Left: Knee [employer] 05/07/2023 5510-F-40 1# / / [id number] Procedures Procedure Name Priority Date/Time Associated Diagnosis Comments LIPID PANEL Early AM 12/04/2020 10:39 AM CDT COLONOSCOPY 01/14/2018 2:48 PM CDT ANTI HCV Routine 12/27/2017 2:48 PM CDT Need for hepatitis C screening test from Last 3 Months or Most Recently Relevant to Health Maintenance Results * (ABNORMAL) Lipid Panel - In AM (12/04/2020 10:39 AM CDT) Pathologist [facility] [place] CHOLESTEROL,TOTAL 149 100 - 199 mg/dL 12/04/2020 11:18 AM CDT [facility] TRIGLYCERIDES 279(H) <150 mg/dL 12/04/2020 11:18 AM CDT [facility] HDL CHOLESTEROL 25(L) >40 mg/dL 11:18 AM CDT [facility] NON-HDL CHOLESTEROL 124 <145 mg/dl 12/04/2020 11:18 AM CDT [facility] CHOL/HDL RATIO 5.96(H) <4.50 12/04/2020 11:18 AM CDT [facility] LDL CHOLESTEROL 68 <=130 mg/dL 12/04/2020 11:18 AM CDT [facility] VLDL CHOLESTEROL 56 mg/dL 12/05/19 11:18 AM CDT [facility] PROVIDER ORDERED STATUS RANDOM 12/04/2020 11:18 AM CDT [facility] Blood BLOOD SPECIMEN / Unknown Venipuncture / Unknown 12/04/2020 10:39 AM CDT 12/04/2020 10:52 AM CDT us Wally Kelly MD CHEMISTRY Final Res ult [facility] [address] [place] [address], [place] * COLONOSCOPY (01/14/2018 2:48 PM CDT) 01/14/2018 2:48 PM CDT Narrative Transcriptions Hector Drake, - 01/14/2018 3:23 PM CDT Patient Name: Luis Eduardo Gentile Procedure Date: 01/14/2018 Gender: Male Date of : 1965 Admit Type: Ambulatory Procedure: Colonoscopy Proceduralist: Hector Drake MD [facility] Indications/Pre-Op Diagnosis: Screening for colorectal malignantneoplasm Medications: Propofol per Anesthesia Procedure Description: The patient had risks, benefits and alternatives explained to andgave informed consent. The patient had a stable cardiopulmonary status and judged an adequate candidate for conscious sedation. The colonoscope was passed through the anus and advanced to thececum, identified by appendiceal orifice and ileocecal valve. Thecolonoscopy was performed without difficulty. The patient tolerated the procedure well. The quality of the bowel preparation was good. The ileocecal valve, appendiceal orifice, and rectum were photographed. Complications: No immediate complications. Estimated Blood Loss & Specimen: Estimated blood loss was minimal. Specimen collected - Yes and sent to Laboratory Findings: Hemorrhoids were found on perianal exam. The entire examined colon appeared normal on direct and retroflexion views. Biopsies were taken with a cold forceps in the entire colon for histology. Estimated blood loss was minimal. Impressions/Post-Op Diagnosis: - Hemorrhoids found on perianal exam. - The entire examined colon is normal on direct and retroflexionviews. - Biopsies were taken with a cold forceps for histology in the entire colon. Recommendation: - Patient has a contact number available for emergencies. The signsand symptoms of potential delayed complications were discussed with the patient. Return to normal activities tomorrow. Written discharge instructions were provided to the patient. - High fiber diet. - No aspirin, ibuprofen, naproxen, or other non-steroidal anti-inflammatory drugs for 5 days. - Patient has a contact number available for emergencies. The signsand symptoms of potential delayed complications were discussed with the patient. Return to normal activities tomorrow. Written discharge instructions were provided to the patient. - Repeat colonoscopy in 5-10 years for screening purposes. - Discharge patient to home (with escort). Moderate Sedation: Moderate (conscious) sedation was personally administered by an anesthesia professional. The following parameters were monitored:oxygen saturation, heart rate, blood pressure, and response to care. Hector Drake MD 01/14/2018 3:23:33 PM This report has been signed electronically. Note Initiated On: 01/14/2018 2:48 PM us Hector Drake DO PROCEDURE ORD Fi nal Result * ANTI HCV [55381.2] (12/27/2017 2:48 PM CDT) HEPATITIS C ANTIBODY Non-React cameron Non-React cameron 12/27/2017 8:04 PM CDT [facility] [employer] [facility] Comment:Antibodies to HCV no t detected; does not exclude the possibility of exposure to HCV. Blood BLOOD SPECIMEN / Unknown Venipuncture / Unknown 12/27/2017 2:48 PM CDT 12/27/2017 2:49 PM CDT us Anselmo Altman MD SEND OUTS Final R esult [facility] [address] [place] [address], from Last 3 Months or Most Recently Relevant to Health Maintenance Insurance MED[place] MEDICARE [place] ONLY Advance Directives * DNR (Latest Code Status on File) Date Activated Date Inactivated Comments 12/03/2020 12:18 PM 12/05/2020 4:14 PM Patient with low mood but not suicidal and is decisional Question Answer Comments Code Status Discussion: Discussed * Full Code Date Activated Date Inactivated Comments 08/05/2020 3:15 PM 08/09/2020 3:43 PM Question Answer Comments Code Status Discussion: Per Existing Order * Full Code Date Activated Date Inactivated Comments 07/12/2020 1:52 AM 07/13/2020 4:46 PM Question Answer Comments Code Status Discussion: Discussed * Full Code Date Activated Date Inactivated Comments 03/09/2019 12:24 PM 03/10/2019 1:54 PM Question Answer Comments Code Status Discussion: Discussed * Full Code Date Activated Date Inactivated Comments 01/25/2019 5:56 AM 01/26/2019 6:38 PM Care Teams Offal Separator Relationship Specialty Start Date End Date Anselmo Altman MD [address] [place] [address] [place] Rai [address] PCP - General Family Practice 01/05/24
--- NOTE | 2024-10-21 08:28 | ED.GENADULT ---
HPI - General Adult General Date Seen: 10/21/24 Chief complaint: Extremity Pain/Injury, Upper Stated complaint: L hand popped Time Seen by Provider: 10/21/24 08:26 History of Present Illness HPI narrative: Patient is a 59-year-old who says he pushed on a door today and his left shoulder ?popped and now he has pain in the shoulder particularly posteriorly. No radiating pain or weakness, difficulty moving the shoulder. No other complaints. Related Data Home Medications ?Medication ?Instructions ?Recorded ?Confirmed aspirin 81 mg chewable tablet 1 tab PO DAILY 08/14/22 08/14/22 blood sugar diagnostic (Accu-Chek 08/14/22 08/14/22 Guide test strips) blood-glucose meter (Accu-Chek 08/14/22 08/14/22 Guide Glucose Meter) carvedilol 25 mg tablet 25 mg PO BID 08/14/22 08/14/22 clopidogrel 75 mg tablet 75 mg PO DAILY 08/14/22 08/14/22 dextroamphetamine-amphetamine 20 1 tab PO BID 08/14/22 08/14/22 mg tablet (Adderall) insulin glargine 100 unit/mL (3 36 unit subcut BID 08/14/22 08/14/22 mL) subcutaneous pen (Basaglar KwikPen U-100 Insulin) isosorbide mononitrate 60 mg 60 mg PO DAILY 08/14/22 08/14/22 tablet,extended release 24 hr lancets (Accu-Chek Softclix 08/14/22 08/14/22 Lancets) losartan 100 mg tablet 100 mg PO DAILY 08/14/22 08/14/22 metformin 500 mg tablet 500 mg PO BID 08/14/22 08/14/22 nitroglycerin 0.4 mg sublingual 0.4 mg sublingual PRN angina 08/14/22 08/14/22 tablet rosuvastatin 20 mg tablet 20 mg PO DAILY 08/14/22 08/14/22 torsemide 20 mg tablet 20 mg PO DAILY 08/14/22 08/14/22 insulin aspart U-100 100 unit/mL subcut 08/15/22 (3 mL) subcutaneous pen (Novolog FlexPen U-100 Insulin aspart) albuterol 90 mcg/actuation aerosol 1-2 spray inhalation .Every 6 Hours 08/24/22 08/24/22 inhaler propranolol 20 mg tablet 20 mg PO 3XD 08/24/22 08/24/22 Previous Rx's ?Medication ?Instructions ?Recorded celecoxib 100 mg capsule (Celebrex) 100 mg PO BID #20 caps 10/21/24 Allergies Allergy/AdvReac Type Severity Reaction Status Date / Time lisinopril AdvReac Intermediate Cough Verified 08/14/22 12:40 methylphenidate AdvReac Intermediate Hallucinati Verified 08/14/22 12:40 ng [facility] Medical History (Updated 10/21/24 @ 09:04 by Najma Howard MD) Seizure ?R56.9 - Unspecified convulsions (ICD-10) Ischemic cardiomyopathy ?I25.5 - Ischemic cardiomyopathy (ICD-10) Depression with anxiety ?F41.8 - Other specified anxiety disorders (ICD-10) Hyperlipidemia ?E78.5 - Hyperlipidemia, unspecified (ICD-10) Unstable angina ?I20.0 - Unstable angina (ICD-10) Essential hypertension ?I10 - Essential (primary) hypertension (ICD-10) Hyponatremia with increased serum osmolality ?E87.0 - Hyperosmolality and hypernatremia (ICD-10) ?E87.1 - Hypo-osmolality and hyponatremia (ICD-10) Chronic combined systolic and diastolic CHF (congestive heart failure) ?I50.42 - Chronic combined systolic (congestive) and diastolic (congestive) heart failure (ICD-10) Hypertensive emergency ?I16.1 - Hypertensive emergency (ICD-10) Coronary artery disease ?I25.10 - Atherosclerotic heart disease of [place] coronary artery without angina pectoris (ICD-10) Chondromalacia ?M94.20 - Chondromalacia, unspecified site (ICD-10) NSTEMI (non-ST elevated myocardial infarction) ?I21.4 - Non-ST elevation (NSTEMI) myocardial infarction (ICD-10) VANESSA (obstructive sleep apnea) ?G47.33 - Obstructive sleep apnea (adult) (pediatric) (ICD-10) DM type 2 (diabetes mellitus, type 2) ?E11.9 - Type 2 diabetes mellitus without complications (ICD-10) Obesity ?E66.9 - Obesity, unspecified (ICD-10) Bipolar 2 disorder ?F31.81 - Bipolar II disorder (ICD-10) ADHD ?F90.9 - Attention-deficit hyperactivity disorder, unspecified type (ICD-10) Depression ?F32.A - Depression, unspecified (ICD-10) Surgical History (Updated 08/19/22 @ 12:37 by Clara Dent ~ PSR) Status post surgical manipulation of ankle joint ?Z98.890 - Other specified postprocedural states (ICD-10) Status post left foot surgery ?Z98.890 - Other specified postprocedural states (ICD-10) Hx of colonoscopy (~01/14/18) ?Z98.890 - Other specified postprocedural states (ICD-10) Hx of total knee arthroplasty ?Z96.659 - Presence of unspecified artificial knee joint (ICD-10) Family History (Updated 08/14/22 @ 19:31 by Alisha Diop MD) Father Diabetes Mother Diabetes Coronary artery disease, Onset Age: 59 Thyroid disease Aunt Coronary artery disease, Onset Age: 50 Stroke Uncle Coronary artery disease, Onset Age: 56 Social History (Updated 08/14/22 @ 21:07 by Alisha Diop MD) Narrative: Lives alone in a trailer home. Never used tobacco. Quit marijuana in 2004. Quit EtOH in 2008, was drinking 1 case of beer a day before that. 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 Wishes to be DNR/DNI. Highest level of school completed/degree received: Associate degree: occupational, technical, vocational program Smoking Status: Never smoker Do you use any of these nicotine containing products: None How often do you have a drink containing alcohol: never How often do you have six or more drinks on one occasion: Never AUDIT-C Alcohol total score: 0 Non-prescribed substance use: denies use Caffeine: No service: No Exam Narrative: Exam Narrative: Vital signs reviewed In general, alert, nontoxic male. Extremities: He generally holds the left upper extremity adducted with his elbow flexed. With encouragement he is able to abduct to about 90?. He complains of pain with any movement. Does not seem to have significant tenderness to palpation, no obvious deformity. Distal CMS is intact. Skin: Warm dry well perfused. Const: Vital Signs, click to edit/add: Vital Signs - 24 hr 10/21/24 08:29 Temperature 97.8 F Pulse Rate [Pulse Oximeter] 92 Respiratory Rate 18 Blood Pressure [Ri ght Upper Arm] 171/100 H Pulse Oximetry 99 Oxygen Delivery Me thod Room Air Course Course ED Course: Patient had x-rays of the left shoulder which by my review are negative, no evidence of dislocation or fracture. Radiology read is negative. Reviewed that x-rays are negative and the I a.m. uncertain of exactly what happened to his shoulder today. He remains concerned about the popping sensation that he felt. I am not certain the etiology of this. Exam is somewhat limited today as he will not really let me examine the shoulder. I suggested that we give him a sling, let this settle down for a couple of days and then have him follow-up with orthopedics if he does not feel that it is getting better. Reviewed that additional imaging may be needed in the form of MRI to evaluate the soft tissues. I prescribed Celebrex for him, recommend ice. Reviewed that he does need to do some range of motion several times a day to avoid frozen shoulder. Given the number to make a follow-up appointment with Orthopedics. Vital Signs Vital signs: Initial Vital Signs Temperature 97.8 F 10/21/24 08:29 Temperature Source Temporal Artery Scan 10/21/24 08:29 Pulse Rate 92 10/21/24 08:29 Respiratory Rate 18 10/21/24 08:29 Blood Pressure 171/100 H 10/21/24 08:29 Blood Pressure Mean 123 H 10/21/24 08:29 Blood Pressure Position Sitting 10/21/24 08:29 Pulse Oximetry 99 10/21/24 08:29 Oxygen Delivery Method Room Air 10/21/24 08:29 Vital Signs Temperature 97.8 F 10/21/24 08:29 Pulse Rate 92 10/21/24 08:29 Respiratory Rate 18 10/21/24 08:29 Blood Pressure 171/100 H 10/21/24 08:29 Pulse Oximetry 99 10/21/24 08:29 Oxygen Delivery Method Room Air 10/21/24 08:29 Temperature 97.8 F 10/21/24 08:29 Pulse Rate 92 10/21/24 08:29 Respiratory Rate 18 10/21/24 08:29 Blood Pressure 171/100 H 10/21/24 08:29 Pulse Oximetry 99 10/21/24 08:29 Oxygen Delivery Method Room Air 10/21/24 08:29 Medical Decision Making Imaging Data Right shoulder x-ray: Attestation: I have reviewed the pertinent imaging results. Radiologist's impression: Patient: Luis Eduardo Gentile MR#: [id number] : 1965 Acct:[id number] Loc: ED Service Date: 10/21/[address]: Ordering Physician: Najma Howard M.D. Date of Service: 10/21/24 Procedure(s): XR shoulder LT min 2V Accession Number(s): [id number] cc: Najma Howard M.D.; Provider,Not a Local~ For Patients: As a result of the Cures Act, medical imaging exams and procedure reports are released immediately into your electronic medical record. You may view this report before your referring provider. If you have questions, please contact your health care provider. Indication: Injury and pain. Technique: Left shoulder 3 views. Comparison: None. Findings: Bones: Alignment is normal. No fractures or bone lesions. No signs of injury. Joint spaces: Moderate AC and glenohumeral joint arthritis. Soft tissues: Unremarkable. Dictated by Willis Decker MD @ 10/21/2024 8:52:58 AM Discharge Plan Discharge Clinical Impression: Acute pain of left shoulder Patient Disposition: Home, Self-Care Condition: Stable Instructions: Shoulder Pain (ED) Additional Instructions: Take Celebrex as prescribed. Use sling for comfort, however, it is important that you remove the sling and gently move your shoulder around a few times a day to avoid getting a stiff joint, or frozen shoulder. Use ice liberally over the next few days. On Wednesday, if you do not feel that you are starting to improve, please call to make an appointment with the orthopedic doctors, the [facility], their phone number is [phone]. Prescriptions: New celecoxib [Celebrex] 100 mg capsule 100 mg PO BID Qty: 20 2RF No Action albuterol 90 mcg/actuation aerosol 1-2 spray inhalation .Every 6 Hours propranolol 20 mg tablet 20 mg PO 3XD carvedilol 25 mg tablet 25 mg PO BID torsemide 20 mg tablet 20 mg PO DAILY (DME) blood-glucose meter [Accu-Chek Guide Glucose Meter] Misc MISCELLANEOUS QID clopidogrel 75 mg tablet 75 mg PO DAILY (DME) Accu-Chek Guide test strips Strip MISCELLANEOUS 5XD isosorbide mononitrate 60 mg tablet extended release 24 hr 60 mg PO DAILY (DME) lancets [Accu-Chek Softclix Lancets] Misc MISCELLANEOUS QID dextroamphetamine-amphetamine [Adderall] 20 mg tablet 1 tab PO BID nitroglycerin 0.4 mg tablet, sublingual 0.4 mg sublingual PRN aspirin 81 mg tablet,chewable 1 tab PO DAILY losartan 100 mg tablet 100 mg PO DAILY rosuvastatin 20 mg tablet 20 mg PO DAILY insulin glargine [Basaglar KwikPen U-100 Insulin] 100 unit/mL (3 mL) insulin pen 36 unit subcut BID metformin 500 mg tablet 500 mg PO BID insulin aspart U-100 [Novolog FlexPen U-100 Insulin] 100 unit/mL (3 mL) insulin pen subcut Patient Comments: per sliding scale Follow Up/Referrals: Provider,Not a Local [Primary Care Provider, Family Practice] Stand Alone Forms: MyHealth Info Instructions
[2024-10-21 08:29] VITALS: BP 171/100; PULSE 92; RESP 18; TEMP 36.6; O2SAT 99; BMI 31.3
--- OUTSIDE RECORDS SUMMARY | 2024-10-21 09:25 | XMS_ITS | CCD ---
Author Organization Unknown Care Team Providers Care Soft Sugar Supervisor Name Role Phone Spoon Maker, [place] Primary Care Provider Unava ilable Unavailable Chronic Care Management Unavaila ble Summary Purpose DataExchange Insurance Providers Payer name Policy type / Coverage type Covered democrat ID Effective Begin Date Effective End Date [place] Part B [id number] Unknown Unknown Ucare Medicare Part B [id number] Unknown Unknown Family History Family History data not found Medication Administered No Medication Administered data Reason For Visit No Reason For Visit data
--- OUTSIDE RECORDS SUMMARY | 2024-10-21 09:40 | XMS_ITS | CCD ---
Author Organization Unknown Care Team Providers Care Engineering Mechanic Name Role Phone Tree Girdler, [place] Primary Care Provider Unava ilable Unavailable Chronic Care Management Unavaila ble Summary Purpose DataExchange Insurance Providers Payer name Policy type / Coverage type Covered constitution party ID Effective Begin Date Effective End Date [place] Part B [id number] Unknown Unknown Ucare Medicare Part B [id number] Unknown Unknown Family History Family History data not found Medication Administered No Medication Administered data Reason For Visit No Reason For Visit data
--- OUTSIDE RECORDS SUMMARY | 2024-10-21 09:40 | XMS_ITS | CCD ---
Author Organization Unknown Care Team Providers Care Elementary School Art Teacher Name Role Phone Field Crop Harvest Contractor, [place] Primary Care Provider Unava ilable Unavailable Chronic Care Management Unavaila ble Summary Purpose DataExchange Insurance Providers Payer name Policy type / Coverage type Covered constitution party ID Effective Begin Date Effective End Date [place] Part B [id number] Unknown Unknown Ucare Medicare Part B [id number] Unknown Unknown Family History Family History data not found Medication Administered No Medication Administered data Reason For Visit No Reason For Visit data
== END 2024-10-21 09:15 | disposition home or self-care (01) ==
PROVIDERS: Emergency Provider Emergency Medicine
DX: M25.512 Pain in left shoulder (principal)
CPT/HCPCS: 73030; 99283; 99284

== ENCOUNTER 2024-10-30 07:18 | Outpatient (CLI) | payer MEDICARE, SELFPAY ==
--- OUTSIDE RECORDS SUMMARY | 2024-10-30 07:39 | XMS_ITS | Encounter Summary ---
Author Organization [facility] Address [address] [place] [address] Care Team Providers Care Brass Finisher Name Role Phone Jill Mcbride P.A.-C. Primary Care Pro vider Reason for Visit * Reason Comments Med Refill Encounter Details Date Type Department Care Team (Late st Contact Info) Description 09/21/2024 Refill [facility] Family Medicine [place] [address] [address] Gilbert Pena M.D. [address] [place] [address] Med Refill Social History Tobacco Use Types Packs/Day Years Used Date Smoking Tobacco: Former Passive Smoke Exposure: Past Smokeless Tobacco: Former Alcohol Use Standard Drinks/Week Comments Not Currently 0 (1 standard drink = 0.6 oz pur e alcohol) 15 years free of alcohol [facility] Utilities Answer Date Recorded In the [...] your living situation today? I have a [facility] place to live 07/22/2023 Education Answer Date Recorded What is the highest level of school you have completed or the highest degree you have received? 12th grade 10/24/2020 Sex and Gender Information Value Date Recorded Sex Assigned at Male 05/13/2023 11:36 AM LOADER TECHNICIAN Legal Sex Male 9:32 PM LOADER TECHNICIAN Gender Identity Male 05/13/2023 11:36 AM LOADER TECHNICIAN Sexual Orientation Straight 05/13/2023 11 :36 AM LOADER TECHNICIAN documented as of this encounter Miscellaneous Notes [...] documented as of this encounter Care Teams Brass Finisher Relationship Specialty Start Date End Date Jill Mcbride MPAS, P.A.-C. [address] [place] [address] [place] [address] PCP - General Internal Medicine 04/03/24 documented as of this encounter
--- OUTSIDE RECORDS SUMMARY | 2024-10-30 07:39 | XMS_ITS | Encounter Summary ---
Author Organization [facility] Address [address] [place] [address] Care Team Providers Care Metal Painter Name Role Phone Jill Mcbride P.A.-C. Primary Care Pro vider Reason for Visit * Reason Onset Date Comments Follow-up Orders 09/14/2024 Encounter Details Date Type Department Care Team (Late st Contact Info) Description 09/14/2024 Clinical Communication Department of Family Medicine in [place], [place] [address] [place] [address] Gilbert Pena M.D. [address] [facility] [address] Follow-up Orders Social History Tobacco Use Types Packs/Day Years Used Date Smoking Tobacco: Former Passive Smoke Exposure: Past Smokeless Tobacco: Former Alcohol Use Standard Drinks/Week Comments Not Currently 0 (1 standard drink = 0.6 oz pur e alcohol) 15 years free of alcohol [facility] Utilities Answer Date Recorded In the past 12 months has [employer], gas, oil, or water [employer] threatened to shut off services in your [...] your living situation today? I have a [facility] place to live 07/22/2023 Education Answer Date Recorded What is the highest level of school you have completed or the highest degree you have received? 12th grade 10/24/2020 Sex and Gender Information Value Date Recorded Sex Assigned at Male 05/13/2023 11:36 AM LOFT WORKER Legal Sex Male 9:32 PM LOFT WORKER Gender Identity Male 05/13/2023 11:36 AM LOFT WORKER Sexual Orientation Straight 05/13/2023 11 :36 AM LOFT WORKER documented as of this encounter Miscellaneous Notes [...] documented as of this encounter Care Teams Metal Painter Relationship Specialty Start Date End Date Jill Mcbride MPAS, P.A.-C. [address] [facility] [place] [address] PCP - General Internal Medicine 04/03/24 documented as of this encounter
--- OUTSIDE RECORDS SUMMARY | 2024-10-30 07:39 | XMS_ITS | Encounter Summary ---
Author Organization [facility] Address [address] [place] [address] Care Team Providers Care Grading Machine Operator Name Role Phone Jill Mcbride, P.A.-CAdelina Primary Care Pro vider Encounter Details Date Type Department Care Team (Late st Contact Info) Description 09/19/2024 Clinical Communication Department of Community Internal Medicine in [place], [place] [address] [place] [address] Jill Mcbride MPAS, P.A.-CAdelina [address] [place] [address] Social History Tobacco Use Types Packs/Day Years Used Date Smoking Tobacco: Former Passive Smoke Exposure: Past Smokeless Tobacco: Former Alcohol Use Standard Drinks/Week Comments Not Currently 0 (1 standard drink = 0.6 oz pur e alcohol) 15 years free of alcohol [facility] Utilities Answer Date Recorded In the past 12 months has [employer], gas, oil, or water [employer] threatened to shut off services in your [...] your living situation today? I have a [facility] place to live 07/22/2023 Education Answer Date Recorded What is the highest level of school you have completed or the highest degree you have received? 12th grade 10/24/2020 Sex and Gender Information Value Date Recorded Sex Assigned at Male 05/13/2023 11:36 AM CITY CARRIER ASSISTANT Legal Sex Male 9:32 PM CITY CARRIER ASSISTANT Gender Identity Male 05/13/2023 11:36 AM CITY CARRIER ASSISTANT Sexual Orientation Straight 05/13/2023 11 :36 AM CITY CARRIER ASSISTANT documented as of this encounter Plan of Treatment Not on file documented as of this encounter Visit Diagnoses Not on filedocumented in this encounter Additional Health Concerns Assessment Noted Time PHQ-9 Depression Total Score: 20 021 7:40 AM CDT documented as of this encounter Care Teams Grading Machine Operator Relationship Specialty Start Date End Date Jill Mcbride MPAS, P.A.-C. [address] [place] [phone] PCP - General Internal Medicine 04/03/24 documented as of this encounter
--- OUTSIDE RECORDS SUMMARY | 2024-10-30 07:39 | XMS_ITS | Encounter Summary ---
Author Organization [facility] Address [address] [place] [address] Care Team Providers Care Torch Straightener And Heater Name Role Phone Jill Mcbride, P.A.-C. Primary Care Pro vider Reason for Visit * Reason Onset Date Comments Med Refill 09/26/2024 Encounter Details Date Type Department Care Team (Late st Contact Info) Description 09/26/2024 Refill Department of Community Internal Medicine in [place], [place] [address] [place] [address] Jill Mcbride MPAS, P.A.-C. [address] [place] [id number] Med Refill Social History Tobacco Use Types Packs/Day Years Used Date Smoking Tobacco: Former Passive Smoke Exposure: Past Smokeless Tobacco: Former Alcohol Use Standard Drinks/Week Comments Not Currently 0 (1 standard drink = 0.6 oz pur e alcohol) 15 years free of alcohol [facility] Utilities Answer Date Recorded In the past 12 months has [employer], gas, oil, or water [employer] threatened to shut off services in your [...] your living situation today? I have a [facility] place to live 07/22/2023 Education Answer Date Recorded What is the highest level of school you have completed or the highest degree you have received? 12th grade 10/24/2020 Sex and Gender Information Value Date Recorded Sex Assigned at Male 05/13/2023 11:36 AM GRAY MIXING OPERATOR Legal Sex Male 9:32 PM GRAY MIXING OPERATOR Gender Identity Male 05/13/2023 11:36 AM GRAY MIXING OPERATOR Sexual Orientation Straight 05/13/2023 11 :36 AM GRAY MIXING OPERATOR documented as of this encounter Plan of Treatment Not on file documented as of this encounter Visit Diagnoses Diagnosis Atherosclerotic Heart Disease Of [place] Coronary Artery Without Angina Pectoris documented in this encounter Additional Health Concerns Assessment Noted Time PHQ-9 Depression Total Score: 20 021 7:40 AM CDT documented as of this encounter Care Teams Torch Straightener And Heater Relationship Specialty Start Date End Date Jill Mcbride MPAS, P.A.-C. [address] [address] PCP - General Internal Medicine 04/03/24 documented as of this encounter
--- OUTSIDE RECORDS SUMMARY | 2024-10-30 07:39 | XMS_ITS | Clinical Summary ---
Author Organization [facility] Address [address] [place] [address] Care Team Providers Care Antenna Rigger Name Role Phone Jill Mcbride P.A.-C. Primary Care Pro vider Source Comments Patient records contain information from all sites at [facility]. For routine questions regarding patient records, call [phone] during business hours, M-F 8:00 AM - 5:00 PM Central Time. Record requests for emergency care only can be directed to [phone] at any time.[facility] Allergies Active Allergy Reactions Criticality Noted [...] as needed for dry eyes. 15 mL 3 Active amLODIPine (NORVASC) 10 mg tablet Take 1 tablet (10 mg total) by mouth every evening. 90 tablet 3 4 Active Farxiga 10 mg tabletIndications :Diabetes Mellitus Type 2 Hyperglycemia (HCC) take one tablet by mouth every day 90 tablet 3 4 Active isosorbide mononitrate (IMDUR) 60 mg 24 hr tablet take one tablet by mouth every day 90 tablet 3 4 Active rosuvastatin (Crestor) 40 mg tabletIndications :Atherosclerotic Heart Disease Of [place] Coronary Artery Without Angina Pectoris Take 1 tablet (40 mg total) by mouth daily. 90 tablet 3 4 Active blood sugar diagnostic stripsIndications :Diabetes Mellitus Type 2 Hyperglycemia (HCC) 4 test daily. 360 test 3 4 01/26/20 25 Active blood glucose ctl high,nml,low solutionIndicatio ns:Diabetes Mellitus Type 2 Hyperglycemia (HCC) Glucose control solution provides an easy way to ensure accurate blood glucose testing. 1 each 4 Active lancetsIndication s:Diabetes Mellitus Type 2 Hyperglycemia (HCC) Use as directed for glucose monitoring with lancet device 100 each 3 4 Active aspirin 81 mg chewable tabletIndications :Atherosclerotic Heart Disease Of [place] Coronary Artery Without Angina Pectoris Chew 1 tablet (81 mg total) daily. 90 tablet 3 4 05/02/20 25 Active ezetimibe (Zetia) 10 mg tablet Take 1 tablet (10 mg total) by mouth daily. 90 tablet 3 5 06/02/19 26 Active gabapentin (Neurontin) 600 mg tablet Take 1 tablet (600 mg total) by mouth 2 (two) times a day. 180 tablet 3 5 Active lamoTRIgine (LaMICtaL) 100 mg tablet Take 1 tablet (100 mg total) by mouth daily. 90 tablet 5 Active losartan (Cozaar) 100 mg tabletIndications :Chronic Kidney Disease Stage 2 Glomerular Filtration Rate 60 To 89 Take 1 tablet (100 mg total) by mouth daily. 90 tablet 3 5 Active nitroglycerin (Nitrostat) 0.[address] 1 tablet (0.4 mg total) under the tongue every 5 (five) minutes as needed for chest pain. 100 tablet 3 5 Active tirzepatide (Mounjaro) 7.5 mg/0.5 mL pen injector injectionIndicati ons:Diabetes Mellitus Type 2 Hyperglycemia (HCC),Diabetes Mellitus Type 2 Peripheral Neuropathy (HCC),Morbid Obesity Body Mass Index 45.0-49.9 Adult (HCC) Inject 0.5 mL (7.5 mg total) under the skin every 7 (seven) days. 6 mL 2 5 Active insulin glargine (Lantus Solostar U-100 Insulin) 100 unit/mL (3 mL) penIndications:Di abetes Mellitus Type 2 Hyperglycemia (HCC) Inject 42 Units under the skin 2 (two) times a day. Pharmacy select brand per patient insurance/pref erence. 75.6 mL 3 5 06/09/19 26 Active spironolactone (Aldactone) 50 mg tablet Take 1 tablet (50 mg total) by mouth daily. 90 tablet 3 5 Active blood-glucose meter miscIndications:D iabetes Mellitus Type 2 Hyperglycemia (HCC) Test as directed for diabetes control. 1 each 5 Active flash glucose sensor (FreeStyle Falguni 2 Sensor) kitIndications:Di abetes Mellitus Type 2 Hyperglycemia (HCC) 1 each (1 kit total) every 14 (fourteen) days. 6 each 3 5 Active flash glucose scanning reader (FreeStyle Falguni 2 [place]) 1 each (1 Device total) daily. 1 each 5 Active carvediloL (Coreg) 25 mg tabletIndications :Atherosclerotic Heart Disease Of [place] Coronary Artery Without Angina Pectoris Take 1 tablet (25 mg total) by mouth 2 (two) times a day with meals. 180 tablet 3 5 Active Active Problems Problem Noted Date Diagnosed Date [...] today. Assessment & Plan (04/07/2023 8:52 AM LIFT TRUCK MECHANIC): Doing well with gabapentin 100 mg b.i.d.. [...] freestyle Falguni. Continue to work with the production lead. Bipolar Disorder 07/18/2019 Overview (08/17/2024): Continue Lamictal [...] blood pressure at home daily. Recommended the [facility] home health nurse to check his BP at home to. Follow up with me in 2 weeks. BP goal: <130/80. Assessment & Plan (08/04/2023 3:14 PM CDT): Blood pressure is at goal today. Continue with carvedilol 50 mg, amlodipine 10 mg, losartan 100 mg and 25 mg spironolactone. The side effects of the medication. We will do BMP today. - [facility] health nurse checks his BP at home [...] Recommended to monitor blood pressure home. - [facility] home health nurse to help with medication set up and BP monitoring. Assessment & Plan (07/10/2023 5:18 PM LIFT TRUCK MECHANIC): Patient's blood pressure I have reached 148/102 [...] confuse himself. I have arranged him with [facility] health nurse visit to help arrange his medications so he doesn't take duplicates of medications. - pharmacy consult for medication management. Assessment & Plan (07/08/2023 7:11 PM LIFT TRUCK MECHANIC): Patient is currently taking carvedilol 25 mg [...] We will set up with a daughter [facility] for medication management and set up at home so he does not take duplicates of medications. Follow up in 2 weeks for blood pressure recheck and BMP. Assessment & Plan (04/07/2023 8:50 AM LIFT TRUCK MECHANIC): Patient is here following up with his [...] stock at the pharmacy. We will try [facility] pharmacy to see if they carry the [...] me in 2 weeks - home health [facility] to help with medications set up. - Pharmacy Medication therapy: scheduled. Assessment & Plan (07/10/2023 5:18 PM LIFT TRUCK MECHANIC): We recently decrease his Lantus to 42 units bid due to hypoglycemic episode concerns.. Continue with NovoLog sliding scale insulin. Plan - continue with 42 units of Lantus bid - SSI insulin - Goal Am Blood glucose 80-140 - 2 hour postprandial glucose <180 - Continue with freestyle Falguni - Crestor 20 mg - Aspirin 81 mg - Arranged [facility] health to help with medication set up Assessment & Plan (07/08/2023 7:16 PM LIFT TRUCK MECHANIC): Last hemoglobin A1c was 9.5. Patient is [...] mg - Aspirin 81 mg - Arranged [facility] to help with medication set up - Foot exam done today. - patient plans to set up eye exam with his market research worker in the coming weeks. Assessment & Plan [...] and carvedilol - Atherosclerotic Heart Diseas e [place] Coronary Artery With Other Forms Angina Pectoris [...] 70. Assessment & Plan (07/08/2023 7:15 PM LIFT TRUCK MECHANIC): Percutaneous Transarterial Coronary Angioplasty Status Post CAD [...] Adderall 20 mg. This is managed by [facility]. No side effects of the medication. Assessment & Plan (03/04/2023 8:42 AM CDT): Continue with dextroamphetamine 20 mg managed by psychiatrist Sheryl Handy at [facility] We dont have compete record of his Mental Health and patient is a poor historian. Will reach out to [facility] to request release [...] 10/14/2023 Assessment & Plan (07/08/2023 7:18 PM LIFT TRUCK MECHANIC): Patient was recently hospitalized due to stroke-like [...] 10/14/2023 Assessment & Plan (07/08/2023 7:08 PM LIFT TRUCK MECHANIC): Patient RUBY resolved. Will re-initiated losartan 50 mg today. Follow up 2 weeks for BMP recheck. Dyspnea On Exertion 10/25/2020 03/03/20 23 Cardiomyopathy Ischemic 07/12/2020 12/10/2022 Atherosclerotic Heart Diseas e Of [place] Coronary Artery With Unstable Angina Pectoris 07/11/2020 04/07/2023 Other Chest Pain 07/10/2020 12/01/2021 Pain Chest 07/09/2020 12/01/2021 Angina Unstable 07/09/2020 03/04/2023 Noncompliance With Medication Regimen 07/20/2019 04/23/2020 Abnormal Liver Function Test 07/20/2019 07/20/2019 Hypokalemia 07/20/2019 07/20/2019 Depressive Disorder 07/18/2019 02/05/20 Encephalopathy Metabolic 07/18/2019 Hyponatremia 07/18/2019 10/14/2023 Assessment & Plan (03/04/2023 8:24 AM CDT): Recheck BMP today. Hypertensive Urgency 07/18/2019 023 Hypertensive Crisis Unspecified 07/18/2019 07/24/2019 Change Mental Status 07/17/2019 020 Hyperosmolality And Hypernatremia 03/09/2019 07/24/2019 Hypertension Emergency 12/20/201806/03 Myocardial Infarction Old Encounters Date Type Department Care Team Description 09/26/2024 Refill Department of Community Internal Medicine in [place], [place] [address] [place] [phone] Jill Mcbride MPAS, P.A.-C. Med Refill 09/21/2024 Refill [facility] Family Medicine Residency [place] [address] [place] [phone] Gilbert Pena M.D. Med Refill 09/19/2024 Nurse Triage Department of Community Internal Medicine in [place], [place] [address] [place] [address] Rosa Fay R.N. misdirected 09/19/2024 Clinical Communication Department of Family Medicine in [place], [place] [address] [place] [phone] Gilbert Pena M.D. Med Question (09/19/24 left voicemail with info) 09/19/2024 Clinical Communication Department of Community Internal Medicine in [place], [place] [address] [place] [address] Jill Mcbride MPAS, P.A.-C. 09/14/2024 Clinical Communication Department of Family Medicine in [place], [place] [address] [facility] [place] [phone] Gilbert Pena M.D. Follow-up Orders 08/18/2024 Results Follow-Up Department of Community Internal Medicine in [place], [place] [address] [facility] [place] [address] Jill Mcbride MPAS, P.A.-C. DX Chest AP or PA and Lateral 2 Views, ECG 12 Lead, Lipid Panel, Basic Metabolic Panel 08/18/2024 Clinical Communication Department of Cardiovascular Diseases in [place], [place] [address] [place] [address] Sin Pettit M.D. Curbside Consultation 08/17/2024 8:37 AM CDT - 08/17/2024 11:59 PM CDT Hospital Encounter Department of Laboratory Medicine in [address] [phone] Jill Mcbride MPAS, P.A.-C. Atherosclerotic Heart Disease [place] Coronary Artery With Other Forms Angina Pectoris (Stable Angina/Angina Of Exertion); Coronary Stent Status Post; Other Chest Pain Discharge Disposition: Home or Self Care 08/17/2024 8:37 AM CDT - 08/17/2024 11:59 PM CDT Hospital Encounter Department of Laboratory Medicine in [address] [phone] Jill Mcbride MPAS, P.A.-C. Atherosclerotic Heart Disease [place] Coronary Artery With Other Forms Angina Pectoris (Stable Angina/Angina Of Exertion); Coronary Stent Status Post; Hypertensive Heart And Chronic Kidney Disease With Heart Failure And Stage 1 To 4 Chronic Kidney Disease Or Unspecified Chronic Kidney Disease (HCC) Discharge Disposition: Home or Self Care 08/17/2024 8:28 AM CDT - 08/17/2024 8:36 AM CDT Hospital Encounter Department of Radiology in [address] [phone] Jill Mcbride MPAS, P.A.-CAdelina Other Chest Pain Discharge Disposition: Home or Self Care 08/17/2024 8:00 AM CDT Office Visit Department of Community Internal Medicine in [place] [address] [address] [place] [address] Jill Mcbride MPAS, MallorieA.-C. Hypertensive Heart And Chronic Kidney Disease With Heart Failure And Stage 1 To 4 Chronic Kidney Disease Or Unspecified Chronic Kidney Disease (HCC) (Primary Dx); Atherosclerotic Heart Disease [place] Coronary Artery With Other Forms Angina Pectoris [...] 15 years free of alcohol [facility] Utilities Answer Date Recorded In the past 12 months has e [employer], [employer], oil, or water [employer] threatened to shut off services in your [...] money to buy more. Often true 07/22/19 24 Within the past 12 months, t he [...] your living situation today? I have a [facility] place to live 07/22/2023 Education Answer Date Recorded What is the highest level of school you have completed or the highest degree you have received? 12th grade 10/24/2020 Sex and Gender Information Value Date Recorded Sex Assigned at Male 05/13/2023 11:36 AM LIFT TRUCK MECHANIC Legal Sex Male 9:32 PM LIFT TRUCK MECHANIC Gender Identity Male 05/13/2023 11:36 AM LIFT TRUCK MECHANIC Sexual Orientation Straight 05/13/2023 11 :36 AM LIFT TRUCK MECHANIC Last Filed Vital Signs Vital Sign Reading [...] of 2) 2014 Urine Albumin 12/05/2022 12/05/2021, 062 08/2020, 02/05/2020 Depression Screening (Annual PHQ-2) 05/03/2024 [...] this topic Medical Devices Implanted Type Area Collateral Specialist Device Identifier Shelf Expiration Date Model / [...] 08/17/2024 8:43 AM CDT Atherosclerotic Heart Disease [place] Coronary Artery With Other Forms Angina Pectoris (Stable Angina/Angina Of Exertion) Coronary Stent Status Post DX CHEST AP OR PA AND LATERAL 2 VIEWS RAD - Routine (most inpatients and all outpatients) 08/17/2024 8:38 AM CDT Other Chest Pain ECG Routine 08/17/2024 8:33 AM CDT Atherosclerotic Heart Disease [place] Coronary Artery With Other Forms Angina Pectoris (Stable Angina/Angina Of Exertion) Coronary Stent Status Post Other Chest Pain HCV AB SCRN W/REFLEX TO HCV PCR, S Routine 05/01/2024 4:44 PM LIFT TRUCK MECHANIC Screening Test Laboratory HEMOGLOBIN A1C, B Routine 05/01/2024 4:4 4 PM LIFT TRUCK MECHANIC Diabetes Mellitus Type 2 Peripheral Neuropathy (HCC) PROSTATE-SPECIFIC AG (PSA) SCRN, S Routine 05/01/2024 4:44 PM LIFT TRUCK MECHANIC Screening Examination Prostate Cancer ALBUMIN, RANDOM, U [...] ZAMORA, P.A.-C. LAB BLOOD ADD-ON Final Result [facility] [address] [place] [address], [facility] in [place] [address], [place] [address] * (ABNORMAL) Basic Metabolic Panel (08/17/2024 8:43 [...] ZAMORA, P.A.-C. LAB BLOOD ADD-ON Final Result [facility] [address], [place] [address], [facility] [place] [address] [place] [address] * DX Chest AP or PA and [...] ECG 12 Lead (08/17/2024 8:33 AM CDT) Pathologist [facility] Ventricular Rate ECG/Min 67 BPM MUSE HI Interval 272 ms MUSE QRSD Interval 166 ms MUSE QT Interval 460 ms MUSE QTC Interval 486 ms MUSE P [place] 30 degrees MUSE R [place] -83 degrees MUSE T Wave [place] -17 degrees MUSE 08/17/2024 8:33 AM CDT [...] QT has shortened Reviewed by LANEY He Mallorie LariosA.-C. ECG ORDERABLES F inal Result MUSE NA * PSA (Prostate-Specific Antigen) Screen (05/01/2024 4:44 PM LIFT TRUCK MECHANIC) Pathologist [facility] Prostate-Specific Ag 1.4 <=3.5 ng/mL 05/01/2024 6:28 PM LIFT TRUCK MECHANIC OWAT Comment: ----ADDITIONAL INFORMATION---- The testing method is an electrochemiluminescence assay manufactured by [employer] and performed on the Modular or Jacob system. Values obtained with different assay methods or kits may be different and cannot be used interchangeably. Test results cannot be interpreted as absolute evidence for the presence or absence of malignant disease. Blood (Blood, Venous) 05/01/2024 4:44 PM LIFT TRUCK MECHANIC 05/01/2024 5:56 PM LIFT TRUCK MECHANIC us Jill ZAMORA PAdelinaA.-C. LAB BLOOD ADD-ON Final Result Performing Organization Address [facility]/ZIP Co de Phone Number [facility] [address] [place] [address], [facility] in [place] [address] [place] [address] * HCV Ab Scrn w/Reflex to HCV PCR, Serum (05/01/2024 4:44 PM LIFT TRUCK MECHANIC) HCV Ab Screen, S Negative Negative 05/01/2024 7:24 PM LIFT TRUCK MECHANIC [facility] Blood (Blood, Venous) 05/01/2024 4:44 PM LIFT TRUCK MECHANIC 05/01/2024 7:02 PM LIFT TRUCK MECHANIC Narrative [facility] - 05/01/2024 7:24 PM LIFT TRUCK MECHANIC Specimen Information: Specimen ID: [id number] Specimen Type: Blood Specimen Collection Start Date: 05/01/2024 4:44 PM Specimen Received Date: 05/01/2024 7:02 PM Specimen ID: [id number] Specimen Type: Blood Specimen Collection Start Date: 05/01/2024 4:44 PM Specimen Received Date: 05/01/2024 6:56 PM us Jill ZAMORA P.A.-C. LAB MICROBIOLOGY - BLOOD ORDERABLES Final Result Performing Organization Address [facility] [address] [facility]/ZIP Co de Phone Number [facility] [address] [place] [address], [place] [facility] [address] [place] [phone] * (ABNORMAL) Hemoglobin A1c (05/01/2024 4:44 PM LIFT TRUCK MECHANIC) Hemoglobin A1c, B 5.9(H) 4.2 - 5.6 % 05/01/2024 6:26 PM LIFT TRUCK MECHANIC OWAT Comment: Hemoglobin A1c values of 5.7-6.4 percent indicate an increased risk for developing diabetes mellitus. In diabetic patients, HbA1c goals should be discussed with healthcare provider. Blood (Blood, Venous) 05/01/2024 4:44 PM LIFT TRUCK MECHANIC 05/01/2024 5:56 PM LIFT TRUCK MECHANIC us Jill ZAMORA, P.A.-C. LAB BLOOD ADD-ON Final Result Performing Organization Address City/[facility] [address]/ZIP Co de Phone Number [facility] [address] [place] [address], [facility] [place] [address] [place] [address] * (ABNORMAL) Albumin, Random, Urine (12/05/2021 7:42 AM CDT) Albumin, Random, U 37.0 mg/L 2021 12:55 PM CDT [facility] Comment: ----ADDITIONAL INFORMATION---- This test has been modified from the undertaker helper's instructions. Its performance characteristics were determined by [facility] in a manner consistent with CLIA requirements. This test has not been cleared or approved by the U.S. Food and Drug Administration. Creatinine 87 mg/dL 12/05/2021 12:55 PM CDT [facility] Albumin/Creatinine Ratio 43(H) <17 mg/g 12/05/2021 12:55 PM CDT [facility] Urine (Urine, Midstream) 12/05/2021 7:42 AM CDT 12/05/2021 11:55 AM CDT us Tima Etienne M.D. LAB URINE ORDERABLES Final Resul t Performing Organization Address City/[facility] [address] [facility]/ZIP Co de Phone Number [facility] [address] [place] [address], [facility] in [place] [address] [place] [address] from Last 3 Months or Most Recently Relevant to Health Maintenance Insurance MEDICARE Advance Directives For more information, please contact: [phone] * Full Code (Latest Code Status on [...] Answer Comments Full Code: Discussed Care Teams Antenna Rigger Relationship Specialty Start Date End Date Jill Mcbride MPAS, P.A.-C. [address] [place] [address] [place] [phone] PCP - General Internal Medicine 04/03/24
--- OUTSIDE RECORDS SUMMARY | 2024-10-30 07:39 | XMS_ITS | Clinical Summary ---
Author Organization [facility] Address [address] [place] [address] Care Team Providers Care Guest Experience Captain Name Role Phone Anselmo Altman MD Primary [...] insulin 07/11/2020 Coronary artery disease invo lving [place] coronary artery of [place] heart with unstable angina pectoris 07/11/2020 Hyperlipidemia [...] Premature CHD (under age 60) Paternal Uncle [place] Good Health Sister 3 Good Health Sister [...] on file Legal Sex Male 8:13 AM INVESTIGATIONS DIRECTOR Gender Identity Not on file Sexual Orientation [...] [employer] Medical Devices Implanted Type Area Manager Of Financial Device Identifier Shelf Expiration Date Model / Serial / Lot Cmnt Bone Simplex P 1pk - [id number] Implanted:Qty: 2 on 04/01/2018 by Uvaldo Leavitt MD at [facility] Right: Knee [employer] 07/31/2020 6191-1-00 1# / / [id number] Fem Rt Sz4 Triathlon Cruc Ret Co Cr - [id number] Implanted:Qty: 1 on 04/01/2018 by Uvaldo Leavitt MD at [facility] Right: Knee [employer] 12/12/2022 5510-F-40 2# / / [id number] Baseplate Tib Sz4 Triathlon Pe - [id number] Implanted:Qty: 1 on 04/01/2018 by Uvaldo Leavitt MD at [facility] Right: Knee [employer] 02/09/2023 5521-B-40 0# / / [id number] Patella [id number] Triathlon Asymmetric X3 - [id number] Implanted:Qty: 1 on 04/01/2018 by Uvaldo Leavitt MD at [facility] Right: Knee [employer] 01/27/2023 5551-G-32 0# / / [id number] Insert Knee Sz4 11mm Triathloncondyle Stbz X3 - [id number] Implanted:Qty: 1 on 04/01/2018 by Uvaldo Leavitt MD at [facility] Right: Knee [employer] 01/22/2023 5531-G-41 1# / / [id number] Insert Knee Sz4 11mm Triathloncondyle Stbz X3 - [id number] Implanted:Qty: 1 on 09/12/2018 by Uvaldo Leavitt MD at [facility] Left: Knee [employer] 06/30/2023 5531-G-41 1# / / [id number] Cmnt Bone Simplex P 1pk - [id number] Implanted:Qty: 2 on 09/12/2018 by Uvaldo Leavitt MD at [facility] Left: Knee [employer] 11/30/2020 6191-1-00 1# / / [id number] Patella [id number] Triathlon Asymmetric X3 - [id number] Implanted:Qty: 1 on 09/12/2018 by Uvaldo Leavitt MD at [facility] Left: Knee [employer] 04/17/2023 5551-G-35 0# / / [id number] Baseplate Tib Sz4 Triathlon Pe - [id number] Implanted:Qty: 1 on 09/12/2018 by Uvaldo Leavitt MD at [facility] Left: Knee [employer] 06/21/2023 5521-B-40 0# / / [id number] Fem Lt Sz4 Triathlon Cruc Ret Co Cr - [id number] Implanted:Qty: 1 on 09/12/2018 by Uvaldo Leavitt MD at [facility] Left: Knee [employer] 05/07/2023 5510-F-40 1# [...] In AM (12/04/2020 10:39 AM CDT) Pathologist [facility] CHOLESTEROL,TOTAL 149 100 - 199 mg/dL 12/04/2020 11:18 AM CDT [facility] TRIGLYCERIDES 279(H) <150 mg/dL 12/04/2020 11:18 AM CDT [facility] HDL CHOLESTEROL 25(L) >40 mg/dL 11:18 AM CDT [facility] NON-HDL CHOLESTEROL 124 <145 mg/dl 12/04/2020 11:18 AM CDT [facility] CHOL/HDL RATIO 5.96(H) <4.50 12/04/2020 11:18 AM CDT [facility] LDL CHOLESTEROL 68 <=130 mg/dL 12/04/2020 11:18 AM CDT [facility] VLDL CHOLESTEROL 56 mg/dL 12/05/19 11:18 AM CDT [facility] PROVIDER ORDERED STATUS RANDOM 12/04/2020 11:18 AM CDT [facility] Blood BLOOD SPECIMEN / Unknown Venipuncture / Unknown 12/04/2020 10:39 AM CDT 12/04/2020 10:52 AM CDT us Wally Kelly MD CHEMISTRY Final Res ult [facility] [address] [place] [address], [place] * COLONOSCOPY (01/14/2018 2:48 PM CDT) [...] ORD Fi nal Result * ANTI HCV [97718.2] (12/27/2017 2:48 PM CDT) HEPATITIS C ANTIBODY Non-React cameron Non-React cameron 12/27/2017 8:04 PM CDT [facility] Comment:Antibodies to HCV no t detected; does not exclude the possibility of exposure to HCV. Blood BLOOD SPECIMEN / Unknown Venipuncture / Unknown 12/27/2017 2:48 PM CDT 12/27/2017 2:49 PM CDT us Anselmo Altman MD SEND OUTS Final R esult [facility] [address] [place] [address], from Last 3 Months or Most Recently [...] 5:56 AM 01/26/2019 6:38 PM Care Teams Guest Experience Captain Relationship Specialty Start Date End Date Anselmo Altman MD [address] [place] [address] [place] [address] PCP - General Family Practice 01/05/24
--- OUTSIDE RECORDS SUMMARY | 2024-10-30 07:39 | XMS_ITS | Encounter Summary ---
Author Organization [facility] Address [address] [place] [address] Care Team Providers Care Counter Pocket Trimmer Name Role Phone Jill Mcbride P.A.-C. Primary Care Pro vider Reason for Visit * Reason Onset Date Comments misdirected 09/19/2024 Encounter Details Date Type Department Care Team (Late st Contact Info) Description 09/19/2024 Nurse Triage Department of Community Internal Medicine in [place], [place] [address] [place] [address] Rosa Fay, RAdelinaNAdelina [address] [phone] misdirected Social History Tobacco Use Types Packs/Day Years Used Date Smoking Tobacco: Former Passive Smoke Exposure: Past Smokeless Tobacco: Former Alcohol Use Standard Drinks/Week Comments Not Currently 0 (1 standard drink = 0.6 oz pur e alcohol) 15 years free of alcohol [facility] Utilities Answer Date Recorded In the [...] your living situation today? [facility] 07/22/2023 Education Answer Date Recorded What is the highest level of school you have completed or the highest degree you have received? 12th grade 10/24/2020 Sex and Gender Information Value Date Recorded Sex Assigned at Male 05/13/2023 11:36 AM INFORMATION SECURITY ANALYST Legal Sex Male 9:32 PM INFORMATION SECURITY ANALYST Gender Identity Male 05/13/2023 11:36 AM INFORMATION SECURITY ANALYST Sexual Orientation Straight 05/13/2023 11 :36 AM INFORMATION SECURITY ANALYST documented as of this encounter Miscellaneous Notes [...] was warm transferred to Twyla, Patient Appointment Ice Guard Tester at the clinic for further assistance. documented in this encounter Plan of Treatment Not on file documented as of this encounter Visit Diagnoses Not on filedocumented in this encounter Additional Health Concerns Assessment Noted Time PHQ-9 Depression Total Score: 021 7:40 AM CDT documented as of this encounter Care Teams Counter Pocket Trimmer Relationship Specialty Start Date End Date Jill Mcbride MPAS, P.A.-C. [address] [place] [address] PCP - General Internal Medicine 04/03/24 documented as of this encounter
--- OUTSIDE RECORDS SUMMARY | 2024-10-30 07:39 | XMS_ITS | Encounter Summary ---
Author Organization [facility] Address [address] [place] [address] Care Team Providers Care Pipe Coremaker Name Role Phone Jill Mcbride P.A.-C. Primary Care Pro vider Reason for Visit * Reason Onset Date Comments Med Question 09/19/2024 09/19/24 left voi cemail with info Encounter Details Date Type Department Care Team (Late st Contact Info) Description 09/19/2024 Clinical Communication Department of Family Medicine in [place], [place] [address] [place] [address] Gilbert Pena M.D. [address] [place] [id number] Med Question (09/19/24 left voicemail with info) Social History Tobacco Use Types Packs/Day Years Used Date Smoking Tobacco: Former Passive Smoke Exposure: Past Smokeless Tobacco: Former Alcohol Use Standard Drinks/Week Comments Not Currently 0 (1 standard drink = 0.6 oz pur e alcohol) 15 years free of alcohol [facility] Utilities Answer Date Recorded In the past [...] your living situation today? I have a [facility] place to live 07/22/2023 Education Answer Date Recorded What is the highest level of school you have completed or the highest degree you have received? 12th grade 10/24/2020 Sex and Gender Information Value Date Recorded Sex Assigned at Male 05/13/2023 11:36 AM CAR WASHER Legal Sex Male 9:32 PM CAR WASHER Gender Identity Male 05/13/2023 11:36 AM CAR WASHER Sexual Orientation Straight 05/13/2023 11 :36 AM CAR WASHER documented as of this encounter Miscellaneous Notes [...] Aranda R.N. - 09/19/2024 12:30 PM CDT Patient Access Registrar checked with pharmacy - they have now [...] documented as of this encounter Care Teams Pipe Coremaker Relationship Specialty Start Date End Date Jill Mcbride MPAS, P.A.-C. [address] [place] [address] [place] [address] PCP - General Internal Medicine 04/03/24 documented as of this encounter
--- OUTSIDE RECORDS SUMMARY | 2024-10-30 08:39 | XMS_ITS | CCD ---
Author Organization Unknown Care Team Providers Care Auditor Name Role Phone Interactive Media Designer, [place] Primary Care Provider Unava ilable Unavailable Chronic Care Management Unavaila ble Summary Purpose DataExchange Insurance Providers Payer name Policy type / Coverage type Covered green party ID Effective Begin Date Effective End Date Medicare [place] Medicare Part B [id number] Unknown Unknown U[employer] Medicare Part B [id number] Unknown Unknown Family History Family History data not found Medication Administered No Medication Administered data Reason For Visit No Reason For Visit data
--- OUTSIDE RECORDS SUMMARY | 2024-10-30 08:39 | XMS_ITS | CCD ---
Author Organization Unknown Care Team Providers Care Knockdown Man Name Role Phone Independent Crop Consultant, [place] Primary Care Provider Unava ilable Unavailable Chronic Care Management Unavaila ble Summary Purpose DataExchange Insurance Providers Payer name Policy type / Coverage type Covered democrat ID Effective Begin Date Effective End Date Medicare [place] Medicare Part B [id number] Unknown Unknown Ucare Medicare Part B [id number] Unknown Unknown Family History Family History data not found Medication Administered No Medication Administered data Reason For Visit No Reason For Visit data
--- NOTE | 2024-10-30 13:00 | MR_ITS ---
[facility] [place] [address] [facility] [address] Phone:?[phone] Fax:?[phone] Referring Physician Information: Leroy Mcgarry M.D. [address] [facility] [address] Phone:?[phone] Fax:?[phone] Patient:Barney Gentile D.O.B:?1965 Sex:?Male Phone:?[phone] [facility] MRN:?[id number] Exam Date:?10/30/2024 EXAM: MRI of the LEFT SHOULDER WITHOUT CONTRAST CLINICAL HISTORY: Ongoing left shoulder pain. Suspect rotator cuff tear. COMPARISONS: Plain radiographs 10/21/2024. TECHNICAL: MRI sequences of the left shoulder: Axials: PD, T2 Coronals: PD, STIR, T2 Sagittals: PD, T2 SEDATION: None CONTRAST: None FINDINGS: Bones: No fracture or suspicious bone marrow signal abnormality. Coracoacromial arch: Acromion: No os acromiale. Subacromial enthesophyte. Acromioclavicular joint: Moderate degenerative changes. Coracoclavicular ligament: The coracoclavicular ligament is intact. Rotator cuff muscles/tendons: Supraspinatus and infraspinatus: Complete full-thickness tear of the supraspinatus tendon insertion and near complete full-thickness tear of the infraspinatus tendon insertion with maximal tendon retraction to the medial aspect of the humeral head. No rotator cuff muscular atrophy. Teres minor: The teres minor tendon and muscle are intact. Subscapularis: Low-grade partial thickness intrasubstance/interstitial tearing within the superior portion of the subscapularis tendon insertion superimposed upon moderate subscapularis tendinopathy. No muscular atrophy. Labrum and glenohumeral joint: Fraying and tearing of most of the labrum although it must be noted that the labrum is not well evaluated because of motion artifact and nonarthrogram technique. 8 x 8 mm area of full-thickness chondral loss over the posteroinferior portion the glenoid with subjacent subchondral edema-like signal although it must be noted that the cartilage is not well evaluated because of motion artifact and nonarthrogram technique. Trace glenohumeral joint effusion. No convincing evidence of capsular edema or thickening although evaluation is suboptimal because of lack of joint distention. Proximal biceps tendon, long head and short heads: Rupture of the proximal long head of the biceps tendon with distal tendon retraction distal to the bicipital groove. The short head is intact. IMPRESSION: 1. Complete full-thickness tear of the supraspinatus tendon insertion and near complete full-thickness tear of the infraspinatus tendon insertion with maximal tendon retraction to the medial aspect of the humeral head. No rotator cuff muscular atrophy. 2. Low-grade partial thickness intrasubstance/interstitial tearing within the superior portion of the subscapularis tendon insertion superimposed upon moderate subscapularis tendinopathy. No subscapularis muscular atrophy. 3. Rupture of the proximal long head of the biceps tendon with distal tendon retraction distal to the bicipital groove. 4. Subacromial enthesophyte. 5. Moderate acromioclavicular joint osteoarthritis. 6. Fraying and tearing of most of the labrum and an 8 x 8 mm area of full- thickness chondral loss over the posteroinferior portion the of the glenoid with subjacent subchondral edema-like signal although it must be noted that the cartilage and labrum are not well evaluated because of motion artifact and nonarthrogram technique. 7. Trace glenohumeral joint effusion. RCB Electronically signed on 10/30/2024 2:26:00 PM by Hayes Schroeder M.D.
--- OUTSIDE RECORDS SUMMARY | 2024-10-31 02:07 | XMS_ITS | Encounter Summary ---
Author Organization [facility] Address [address] [place] [address] Care Team Providers Care Air Pumper Name Role Phone Jill Mcbride P.A.-C. Primary Care Pro vider Reason for Visit * Reason Comments Med Refill Encounter Details Date Type Department Care Team (Late st Contact Info) Description 09/21/2024 Refill [facility] Family Medicine Residency [place] [address] [facility] [place] [address] Gilbert Pena M.D. [address] [place] [address] Med Refill Social History Tobacco Use Types Packs/Day Years Used Date Smoking Tobacco: Former Passive Smoke Exposure: Past Smokeless Tobacco: Former Alcohol Use Standard Drinks/Week Comments Not Currently 0 (1 standard drink = 0.6 oz pur e alcohol) 15 years free of alcohol [facility] Utilities Answer Date Recorded In the [...] your living situation today? I have a [facility] place to live 07/22/2023 Education Answer Date Recorded What is the highest level of school you have completed or the highest degree you have received? 12th grade 10/24/2020 Sex and Gender Information Value Date Recorded Sex Assigned at Male 05/13/2023 11:[address] MAINTENANCE WORKER Legal Sex Male 9:[address] MAINTENANCE WORKER Gender Identity Male 05/13/2023 11:[address] MAINTENANCE WORKER Sexual Orientation Straight 05/13/2023 11 :[address] MAINTENANCE WORKER documented as of this encounter Miscellaneous [...] documented as of this encounter Care Teams Air Pumper Relationship Specialty Start Date End Date Jill Mcbride MPAS, P.A.-C. [address] [place] [address] [place] [address] PCP - General Internal Medicine 04/03/24 documented as of this encounter
--- OUTSIDE RECORDS SUMMARY | 2024-10-31 02:07 | XMS_ITS | Encounter Summary ---
Author Organization [facility] Address [address] [place] [address] Care Team Providers Care Regulatory Affairs Associate Name Role Phone iJll Mcbride, P.A.-C. Primary Care Pro vider Reason for Visit * Reason Onset Date Comments Med Refill 09/26/2024 Encounter Details Date Type Department Care Team (Late st Contact Info) Description 09/26/2024 Refill Department of Community Internal Medicine in [place], [place] [address] [place] [address] Jill Mcbride MPAS, P.A.-C. [address] [place] [phone] Med Refill Social History Tobacco Use Types Packs/Day Years Used Date Smoking Tobacco: Former Passive Smoke Exposure: Past Smokeless Tobacco: Former Alcohol Use Standard Drinks/Week Comments Not Currently 0 (1 standard drink = 0.6 oz pur e alcohol) 15 years free of alcohol [facility] Utilities Answer Date Recorded In the past 12 months has [employer], gas, oil, or water [employer] threatened to shut off services in your [...] your living situation today? I have a [facility] place to live 07/22/2023 Education Answer Date Recorded What is the highest level of school you have completed or the highest degree you have received? 12th grade 10/24/2020 Sex and Gender Information Value Date Recorded Sex Assigned at Male 05/13/2023 11:36 AM MEDICAL FRONT DESK COORDINATOR Legal Sex Male 9:32 PM MEDICAL FRONT DESK COORDINATOR Gender Identity Male 05/13/2023 11:36 AM MEDICAL FRONT DESK COORDINATOR Sexual Orientation Straight 05/13/2023 11 :36 AM MEDICAL FRONT DESK COORDINATOR documented as of this encounter Plan of Treatment Not on file documented as of this encounter Visit Diagnoses Diagnosis Atherosclerotic Heart Disease Of [place] Coronary Artery Without Angina Pectoris documented in this encounter Additional Health Concerns Assessment Noted Time PHQ-9 Depression Total Score: 20 021 7:40 AM CDT documented as of this encounter Care Teams Regulatory Affairs Associate Relationship Specialty Start Date End Date Jill Mcbride MPAS, P.A.-C. [address] [address] PCP - General Internal Medicine 04/03/24 documented as of this encounter
--- OUTSIDE RECORDS SUMMARY | 2024-10-31 02:08 | XMS_ITS | Encounter Summary ---
Author Organization [facility] Address [address] [place] [address] Care Team Providers Care Radiologic Therapist Name Role Phone Jill Mcbride P.A.-C. Primary Care Pro vider Reason for Visit * Reason Onset Date Comments Med Question 09/19/2024 09/19/24 left voi cemail with info Encounter Details Date Type Department Care Team (Late st Contact Info) Description 09/19/2024 Clinical Communication Department of Family Medicine in [place], [place] [address] [place] [address] Gilbert Pena M.D. [address] [place] [address] Med Question (09/19/24 left voicemail with info) Social History Tobacco Use Types Packs/Day Years Used Date Smoking Tobacco: Former Passive Smoke Exposure: Past Smokeless Tobacco: Former Alcohol Use Standard Drinks/Week Comments Not Currently 0 (1 standard drink = 0.6 oz pur e alcohol) 15 years free of alcohol [facility] Utilities Answer Date Recorded In the past [...] your living situation today? [facility] 07/22/2023 Education Answer Date Recorded What is the highest level of school you have completed or the highest degree you have received? 12th grade 10/24/2020 Sex and Gender Information Value Date Recorded Sex Assigned at Male 05/13/2023 11:36 AM SUPERVISOR COFFEE Legal Sex Male 9:32 PM SUPERVISOR COFFEE Gender Identity Male 05/13/2023 11:36 AM SUPERVISOR COFFEE Sexual Orientation Straight 05/13/2023 11 :36 AM SUPERVISOR COFFEE documented as of this encounter Miscellaneous Notes [...] Aranda R.N. - 09/19/2024 12:30 PM CDT Director Treasurer checked with pharmacy - they have now [...] documented as of this encounter Care Teams Radiologic Therapist Relationship Specialty Start Date End Date Jill Mcbride MPAS, P.A.-C. [address] [place] [address] [place] [address] PCP - General Internal Medicine 04/03/24 documented as of this encounter
--- OUTSIDE RECORDS SUMMARY | 2024-10-31 02:08 | XMS_ITS | Clinical Summary ---
Author Organization [facility] Address [address] [place] [address] Care Team Providers Care Balloon Maker Name Role Phone Jill Mcbride P.A.-C. Primary Care Pro vider Source Comments Patient records contain information from all sites at [facility]. For routine questions regarding patient records, call [phone] during business hours, M-F 8:00 AM - 5:00 PM Central Time. Record requests for emergency care only can be directed to [phone] at any time.[facility] Allergies Active Allergy Reactions Criticality Noted Date [...] 40 mg tabletIndications :Atherosclerotic Heart Disease Of Ramona Coronary Artery Without Angina Pectoris Take 1 [...] mg chewable tabletIndications :Atherosclerotic Heart Disease Of Ramona Coronary Artery Without Angina Pectoris Chew 1 [...] flash glucose scanning reader (FreeStyle Falguni 2 [place]) 1 each (1 Device total) daily. 1 each 5 Active carvediloL (Coreg) 25 mg tabletIndications :Atherosclerotic Heart Disease Of Ramona Coronary Artery Without Angina Pectoris Take 1 [...] today. Assessment & Plan (04/07/2023 8:52 AM INJECTION MOLDING MACHINE OFFBEARER): Doing well with gabapentin 100 mg b.i.d.. [...] freestyle Falguni. Continue to work with the mercerizing range feeder. Bipolar Disorder 07/18/2019 Overview (08/17/2024): Continue Lamictal [...] blood pressure at home daily. Recommended the [facility] home health nurse to check his BP at home to. Follow up with me in 2 weeks. BP goal: <130/80. Assessment & Plan (08/04/2023 3:14 PM CDT): Blood pressure is at goal today. Continue with carvedilol 50 mg, amlodipine 10 mg, losartan 100 mg and 25 mg spironolactone. The side effects of the medication. We will do BMP today. - [facility] health nurse checks his BP [...] Recommended to monitor blood pressure home. - [facility] home health nurse to help with medication set up and BP monitoring. Assessment & Plan (07/10/2023 5:18 PM INJECTION MOLDING MACHINE OFFBEARER): Patient's blood pressure I have reached 148/102 [...] confuse himself. I have arranged him with [facility] health nurse visit to help arrange his medications so he doesn't take duplicates of medications. - pharmacy consult for medication management. Assessment & Plan (07/08/2023 7:11 PM INJECTION MOLDING MACHINE OFFBEARER): Patient is currently taking carvedilol 25 mg [...] We will set up with a daughter [facility] for medication management and set up at home so he does not take duplicates of medications. Follow up in 2 weeks for blood pressure recheck and BMP. Assessment & Plan (04/07/2023 8:50 AM INJECTION MOLDING MACHINE OFFBEARER): Patient is here following up with his [...] stock at the pharmacy. We will try [facility] pharmacy to see if they carry [...] me in 2 weeks - home health [facility] to help with medications set up. - Pharmacy Medication therapy: scheduled. Assessment & Plan (07/10/2023 5:18 PM INJECTION MOLDING MACHINE OFFBEARER): We recently decrease his Lantus to 42 units bid due to hypoglycemic episode concerns.. Continue with NovoLog sliding scale insulin. Plan - continue with 42 units of Lantus bid - SSI insulin - Goal Am Blood glucose 80-140 - 2 hour postprandial glucose <180 - Continue with freestyle Falguni - Crestor 20 mg - Aspirin 81 mg - Arranged [facility] health to help with medication set up Assessment & Plan (07/08/2023 7:16 PM INJECTION MOLDING MACHINE OFFBEARER): Last hemoglobin A1c was 9.5. Patient is [...] mg - Aspirin 81 mg - Arranged [facility] to help with medication set up - Foot exam done today. - patient plans to set up eye exam with his biofuels product manager in the coming weeks. Assessment & Plan [...] and carvedilol - Atherosclerotic Heart Diseas e Ramona Coronary Artery With Other Forms Angina Pectoris [...] 70. Assessment & Plan (07/08/2023 7:15 PM INJECTION MOLDING MACHINE OFFBEARER): Percutaneous Transarterial Coronary Angioplasty Status Post CAD [...] Adderall 20 mg. This is managed by [facility]. No side effects of the medication. Assessment & Plan (03/04/2023 8:42 AM CDT): Continue with dextroamphetamine 20 mg managed by psychiatrist Sheryl Handy at [facility] We dont have compete record of his Mental Health and patient is a poor historian. Will reach out to [facility] to request release of medical [...] 10/14/2023 Assessment & Plan (07/08/2023 7:18 PM INJECTION MOLDING MACHINE OFFBEARER): Patient was recently hospitalized due to stroke-like [...] 10/14/2023 Assessment & Plan (07/08/2023 7:08 PM INJECTION MOLDING MACHINE OFFBEARER): Patient RUBY resolved. Will re-initiated losartan 50 mg today. Follow up 2 weeks for BMP recheck. 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 Med Refill 09/21/2024 Refill [facility] Family Medicine [facility] [place] [address] [place] [phone] Gilbert Pena M.D. Med Refill 09/19/2024 Nurse Triage Department of Community Internal Medicine in [place], [place] [address] [place] [address] Rosa Fay R.N. misdirected 09/19/2024 Clinical Communication Department of Family Medicine in [place], [place] [address] [place] [phone] Gilbert Pena M.D. Med Question (09/19/24 left voicemail with info) 09/19/2024 Clinical Communication Department of Community Internal Medicine in [place], [place] [address] [place] [address] Jill Mcbride MPAS, P.A.-C. 09/14/2024 Clinical Communication Department of Family Medicine in [place], [place] [address] [facility] [place] [address] Gilbert Pena M.D. Follow-up Orders 08/18/2024 Results Follow-Up Department of Community Internal Medicine in [place], [place] [address] [place] [address] Jill Mcbride MPAS, P.A.-C. DX Chest AP or PA and Lateral 2 Views, ECG 12 Lead, Lipid Panel, Basic Metabolic Panel 08/18/2024 Clinical Communication Department of Cardiovascular Diseases in [place], [place] [address] [address] Sin Pettit M.D. Curbside Consultation 08/17/2024 8:37 AM CDT - 08/17/2024 11:59 PM CDT Hospital Encounter Department of Laboratory Medicine in [address] [phone] Jill Mcbride MPAS, P.A.-C. Atherosclerotic Heart Disease Ramona Coronary Artery With Other Forms Angina Pectoris (Stable Angina/Angina Of Exertion); Coronary Stent Status Post; Other Chest Pain Discharge Disposition: Home or Self Care 08/17/2024 8:37 AM CDT - 08/17/2024 11:59 PM CDT Hospital Encounter Department of Laboratory Medicine in [address] [phone] Jill Mcbride MPAS, P.A.-C. Atherosclerotic Heart Disease Ramona Coronary Artery With Other Forms Angina Pectoris (Stable Angina/Angina Of Exertion); Coronary Stent Status Post; Hypertensive Heart And Chronic Kidney Disease With Heart Failure And Stage 1 To 4 Chronic Kidney Disease Or Unspecified Chronic Kidney Disease (HCC) Discharge Disposition: Home or Self Care 08/17/2024 8:28 AM CDT - 08/17/2024 8:36 AM CDT Hospital Encounter Department of Radiology in [address] [address] Jill Mcbride MPAS, P.A.-CAdelina Other Chest Pain Discharge Disposition: Home or Self Care 08/17/2024 8:00 AM CDT Office Visit Department of Community Internal Medicine in [place] [address] [place] [address] Jill Mcbride MPAS, MallorieA.-C. Hypertensive Heart And Chronic Kidney Disease With Heart Failure And Stage 1 To 4 Chronic Kidney Disease Or Unspecified Chronic Kidney Disease (HCC) (Primary Dx); Atherosclerotic Heart Disease Ramona Coronary Artery With Other Forms Angina Pectoris [...] 15 years free of alcohol [facility] Utilities Answer Date Recorded In the past 12 months has e [employer], [employer], oil, or water [employer] threatened to shut off services in your [...] your living situation today? I have a [facility] place to live 07/22/2023 Education Answer Date Recorded What is the highest level of school you have completed or the highest degree you have received? 12th grade 10/24/2020 Sex and Gender Information Value Date Recorded Sex Assigned at Male 05/13/2023 11:36 AM INJECTION MOLDING MACHINE OFFBEARER Legal Sex Male 9:32 PM INJECTION MOLDING MACHINE OFFBEARER Gender Identity Male 05/13/2023 11:36 AM INJECTION MOLDING MACHINE OFFBEARER Sexual Orientation Straight 05/13/2023 11 :36 AM INJECTION MOLDING MACHINE OFFBEARER Last Filed Vital Signs Vital Sign Reading [...] Blood Pressure Check / Re-check 11/16/2024 08/17/2024 Influenza Vaccine (#1) 2025 , 02/19/2023, 02/13/2020, Additional history exists Pneumococcal vaccine (50+ years) (3 of 3 [...] history exists Hepatitis C Screening Completed 05/01/2024 IPV Vaccines Aged Out No longer eligi ble based on patient's age to complete this topic Medical Devices Implanted Type Area Window Tinter Device Identifier Shelf Expiration Date Model / [...] 08/17/2024 8:43 AM CDT Atherosclerotic Heart Disease Ramona Coronary Artery With Other Forms Angina Pectoris (Stable Angina/Angina Of Exertion) Coronary Stent Status Post DX CHEST AP OR PA AND LATERAL 2 VIEWS RAD - Routine (most inpatients and all outpatients) 08/17/2024 8:38 AM CDT Other Chest Pain ECG Routine 08/17/2024 8:33 AM CDT Atherosclerotic Heart Disease Ramona Coronary Artery With Other Forms Angina Pectoris (Stable Angina/Angina Of Exertion) Coronary Stent Status Post Other Chest Pain HCV AB SCRN W/REFLEX TO HCV PCR, S Routine 05/01/2024 4:44 PM INJECTION MOLDING MACHINE OFFBEARER Screening Test Laboratory HEMOGLOBIN A1C, B Routine 05/01/2024 4:4 4 PM INJECTION MOLDING MACHINE OFFBEARER Diabetes Mellitus Type 2 Peripheral Neuropathy (HCC) PROSTATE-SPECIFIC AG (PSA) SCRN, S Routine 05/01/2024 4:44 PM INJECTION MOLDING MACHINE OFFBEARER Screening Examination Prostate Cancer ALBUMIN, RANDOM, U Routine 12/05/2021 7:42 AM CDT Diabetes Mellitus Type 2 Hyperglycemia (HCC) from Last 3 Months or Most Recently Relevant to Health Maintenance Results * (ABNORMAL) Lipid Panel (08/17/2024 8:43 AM CDT) Pathologist [facility] Triglycerides 159(H) mg/dL 08/17/2024 1:12 PM CDT [...] ZAMORA, P.A.-C. LAB BLOOD ADD-ON Final Result [facility] [address] [place] [address], [facility] in [place] [address] [place] [address] * (ABNORMAL) Basic Metabolic Panel (08/17/2024 8:43 [...] ZAMORA, P.A.-C. LAB BLOOD ADD-ON Final Result [facility] [address] [place] [address], [facility] [place] [address] [place] [address] * DX Chest AP or PA and [...] CDT) Ventricular Rate ECG/Min 67 BPM MUSE MD Interval 272 ms MUSE QRSD Interval 166 ms MUSE QT Interval 460 ms MUSE QTC Interval 486 ms MUSE P [place] 30 degrees MUSE R [place] -83 degrees MUSE T Wave [place] -17 degrees MUSE 08/17/2024 8:33 AM CDT [...] has shortened Reviewed by LANEY He Mallorie LariosAMicah. ECG ORDERABLES F inal Result MUSE NA * PSA (Prostate-Specific Antigen) Screen (05/01/2024 4:44 PM INJECTION MOLDING MACHINE OFFBEARER) Pathologist [facility] Prostate-Specific Ag 1.4 <=3.5 ng/mL 05/01/2024 6:28 PM INJECTION MOLDING MACHINE OFFBEARER [facility] Comment: ----ADDITIONAL INFORMATION---- The testing method is an electrochemiluminescence assay manufactured by [employer] and performed on the Modular or Jacob system. Values obtained with different assay methods or kits may be different and cannot be used interchangeably. Test results cannot be interpreted as absolute evidence for the presence or absence of malignant disease. Blood (Blood, Venous) 05/01/2024 4:44 PM INJECTION MOLDING MACHINE OFFBEARER 05/01/2024 5:56 PM INJECTION MOLDING MACHINE OFFBEARER us Jill ZAMORA, P.A.-C. LAB BLOOD ADD-ON Final Result Performing Organization Address [facility]/ZIP Co de Phone Number [facility] [address] [place] [phone], [facility] in [place] [address] [place] [address] * HCV Ab Scrn w/Reflex to HCV PCR, Serum (05/01/2024 4:44 PM INJECTION MOLDING MACHINE OFFBEARER) HCV Ab Screen, S Negative Negative 05/01/2024 7:24 PM INJECTION MOLDING MACHINE OFFBEARER [facility] Blood (Blood, Venous) 05/01/2024 4:44 PM INJECTION MOLDING MACHINE OFFBEARER 05/01/2024 7:02 PM INJECTION MOLDING MACHINE OFFBEARER Narrative [facility] - 05/01/2024 7:24 PM INJECTION MOLDING MACHINE OFFBEARER Specimen Information: Specimen ID: [id number] Specimen Type: Blood Specimen Collection Start Date: 05/01/2024 4:44 PM Specimen Received Date: 05/01/2024 7:02 PM Specimen ID: [id number] Specimen Type: Blood Specimen Collection Start Date: 05/01/2024 4:44 PM Specimen Received Date: 05/01/2024 6:56 PM us Jill ZAMORA, P.A.-C. LAB MICROBIOLOGY - BLOOD ORDERABLES Final Result Performing Organization Address [facility]/ZIP Co de Phone Number [facility] [address] [place] [phone], [facility] [address] [place] [address] * (ABNORMAL) Hemoglobin A1c (05/01/2024 4:44 PM INJECTION MOLDING MACHINE OFFBEARER) Hemoglobin A1c, B 5.9(H) 4.2 - 5.6 % 05/01/2024 6:26 PM INJECTION MOLDING MACHINE OFFBEARER [facility] Comment: Hemoglobin A1c values of 5.7-6.4 percent indicate an increased risk for developing diabetes mellitus. In diabetic patients, HbA1c goals should be discussed with healthcare provider. Blood (Blood, Venous) 05/01/2024 4:44 PM INJECTION MOLDING MACHINE OFFBEARER 05/01/2024 5:56 PM INJECTION MOLDING MACHINE OFFBEARER us Jill ZAMORA, P.A.-C. LAB BLOOD ADD-ON Final Result Performing Organization Address City/[facility]/ZIP Co de Phone Number [facility] [address] [place] [phone], [facility] in [place] [address] [place] [phone] * (ABNORMAL) Albumin, Random, Urine (12/05/2021 7:42 AM CDT) Albumin, Random, U 37.0 mg/L 2021 12:55 PM CDT [facility] Comment: ----ADDITIONAL INFORMATION---- This test has been modified from the contact lens lathe operator's instructions. Its performance characteristics were determined by [facility] in a manner consistent with CLIA requirements. This test has not been cleared or approved by the U.S. Food and Drug Administration. Creatinine 87 mg/dL 12/05/2021 12:55 PM CDT [facility] Albumin/Creatinine Ratio 43(H) <17 mg/g 12/05/2021 12:55 PM CDT [facility] Urine (Urine, Midstream) 12/05/2021 7:42 AM CDT 12/05/2021 11:55 AM CDT us Tima Etienne M.D. LAB URINE ORDERABLES Final Resul t [facility] [address] [place] [address], [place] [facility] [facility] [place] [address] [place] [address] from Last 3 Months or Most Recently Relevant to Health Maintenance Insurance MEDICARE Advance Directives For more information, please contact: [phone] * Full Code (Latest Code Status on [...] Answer Comments Full Code: Discussed Care Teams Balloon Maker Relationship Specialty Start Date End Date Jill Mcbride MPAS, P.A.-C. [address] [facility] [place] [phone] PCP - General Internal Medicine 04/03/24
--- OUTSIDE RECORDS SUMMARY | 2024-10-31 02:08 | XMS_ITS | Encounter Summary ---
Author Organization [facility] Address [address] [place] [address] Care Team Providers Care Legal Coordinator Name Role Phone Jill Mcbride P.A.-C. Primary Care Pro vider Reason for Visit * Reason Onset Date Comments Follow-up Orders 09/14/2024 Encounter Details Date Type Department Care Team (Late st Contact Info) Description 09/14/2024 Clinical Communication Department of Family Medicine in [place], [place] [address] [place] [address] Gilbert Pena M.D. [address] [facility] [address] Follow-up Orders Social History Tobacco Use Types Packs/Day Years Used Date Smoking Tobacco: Former Passive Smoke Exposure: Past Smokeless Tobacco: Former Alcohol Use Standard Drinks/Week Comments Not Currently 0 (1 standard drink = 0.6 oz pur e alcohol) 15 years free of alcohol [facility] Utilities Answer Date Recorded In the past 12 months has [employer], gas, oil, or water [employer] threatened to shut off services in your [...] your living situation today? I have a [facility] place to live 07/22/2023 Education Answer Date Recorded What is the highest level of school you have completed or the highest degree you have received? 12th grade 10/24/2020 Sex and Gender Information Value Date Recorded Sex Assigned at Male 05/13/2023 11:36 AM ANIMAL CHIROPRACTOR Legal Sex Male 9:32 PM ANIMAL CHIROPRACTOR Gender Identity Male 05/13/2023 11:36 AM ANIMAL CHIROPRACTOR Sexual Orientation Straight 05/13/2023 11 :36 AM ANIMAL CHIROPRACTOR documented as of this encounter Miscellaneous Notes [...] documented as of this encounter Care Teams Legal Coordinator Relationship Specialty Start Date End Date Jill Mcbride MPAS, P.A.-C. [address] [facility] [place] [address] PCP - General Internal Medicine 04/03/24 documented as of this encounter
--- OUTSIDE RECORDS SUMMARY | 2024-10-31 02:08 | XMS_ITS | Encounter Summary ---
Author Organization [facility] Address [address] [place] [address] Care Team Providers Care Credit Reporter Name Role Phone Jill Mcbride, P.A.-CAdelina Primary Care Pro vider Encounter Details Date Type Department Care Team (Late st Contact Info) Description 09/19/2024 Clinical Communication Department of Community Internal Medicine in [place], [place] [address] [place] [address] Jill Mcbride MPAS, P.A.-CAdelina [address] [place] [address] Social History Tobacco Use Types Packs/Day Years Used Date Smoking Tobacco: Former Passive Smoke Exposure: Past Smokeless Tobacco: Former Alcohol Use Standard Drinks/Week Comments Not Currently 0 (1 standard drink = 0.6 oz pur e alcohol) 15 years free of alcohol [facility] Utilities Answer Date Recorded In the past 12 months has [employer], gas, oil, or water [employer] threatened to shut off services in your [...] your living situation today? I have a [facility] place to live 07/22/2023 Education Answer Date Recorded What is the highest level of school you have completed or the highest degree you have received? 12th grade 10/24/2020 Sex and Gender Information Value Date Recorded Sex Assigned at Male 05/13/2023 11:36 AM RN RADIATION ONCOLOGY Legal Sex Male 9:32 PM RN RADIATION ONCOLOGY Gender Identity Male 05/13/2023 11:36 AM RN RADIATION ONCOLOGY Sexual Orientation Straight 05/13/2023 11 :36 AM RN RADIATION ONCOLOGY documented as of this encounter Plan of Treatment Not on file documented as of this encounter Visit Diagnoses Not on filedocumented in this encounter Additional Health Concerns Assessment Noted Time PHQ-9 Depression Total Score: 20 021 7:40 AM CDT documented as of this encounter Care Teams Credit Reporter Relationship Specialty Start Date End Date Jill Mcrbide MPAS, P.A.-C. [address] [place] [phone] PCP - General Internal Medicine 04/03/24 documented as of this encounter
--- OUTSIDE RECORDS SUMMARY | 2024-10-31 02:08 | XMS_ITS | Encounter Summary ---
Author Organization [facility] Address [address] [place] [address] Care Team Providers Care Medicaid Collection Specialist Name Role Phone Jill Mcbride P.A.-C. Primary Care Pro vider Reason for Visit * Reason Onset Date Comments misdirected 09/19/2024 Encounter Details Date Type Department Care Team (Late st Contact Info) Description 09/19/2024 Nurse Triage Department of Community Internal Medicine in [place], [place] [address] [place] [address] Roas Fay, RAdelinaNAdelina [address] [phone] misdirected Social History Tobacco Use Types Packs/Day Years Used Date Smoking Tobacco: Former Passive Smoke Exposure: Past Smokeless Tobacco: Former Alcohol Use Standard Drinks/Week Comments Not Currently 0 (1 standard drink = 0.6 oz pur e alcohol) 15 years free of alcohol [facility] Utilities Answer Date Recorded In the [...] living situation today? I have a [facility] place to live 07/22/2023 Education Answer Date Recorded What is the highest level of school you have completed or the highest degree you have received? 12th grade 10/24/2020 Sex and Gender Information Value Date Recorded Sex Assigned at Male 05/13/2023 11:36 AM BUSINESS WRITER Legal Sex Male 9:32 PM BUSINESS WRITER Gender Identity Male 05/13/2023 11:36 AM BUSINESS WRITER Sexual Orientation Straight 05/13/2023 11 :36 AM BUSINESS WRITER documented as of this encounter Miscellaneous Notes [...] was warm transferred to Twyla, Patient Appointment Fruit Coordinator at the clinic for further assistance. documented in this encounter Plan of Treatment Not on file documented as of this encounter Visit Diagnoses Not on filedocumented in this encounter Additional Health Concerns Assessment Noted Time PHQ-9 Depression Total Score: 021 7:40 AM CDT documented as of this encounter Care Teams Medicaid Collection Specialist Relationship Specialty Start Date End Date Jill Mcbride MPAS, P.A.-C. [address] [place] [address] PCP - General Internal Medicine 04/03/24 documented as of this encounter
--- OUTSIDE RECORDS SUMMARY | 2024-10-31 03:07 | XMS_ITS | CCD ---
Author Organization Unknown Care Team Providers Care Product Blending Supervisor Name Role Phone Library Helper, [place] Primary Care Provider Unava ilable Unavailable Chronic Care Management Unavaila ble Summary Purpose DataExchange Insurance Providers Payer name Policy type / Coverage type Covered republican ID Effective Begin Date Effective End Date Medicare [place] Medicare Part B [id number] Unknown Unknown Ucare Medicare Part B [id number] Unknown Unknown Family History Family History data not found Medication Administered No Medication Administered data Reason For Visit No Reason For Visit data
--- OUTSIDE RECORDS SUMMARY | 2024-10-31 03:08 | XMS_ITS | CCD ---
Author Organization Unknown Care Team Providers Care Inclined Railway Operator Name Role Phone Trust Manager, [place] Primary Care Provider Unava ilable Unavailable Chronic Care Management Unavaila ble Summary Purpose DataExchange Insurance Providers Payer name Policy type / Coverage type Covered constitution party ID Effective Begin Date Effective End Date [place] Part B [id number] Unknown Unknown Ucare Medicare Part B [id number] Unknown Unknown Family History Family History data not found Medication Administered No Medication Administered data Reason For Visit No Reason For Visit data
== END 2024-10-30 07:19 | disposition home or self-care (01) ==
PROVIDERS: Visit Provider Orthopaedic Surgery
DX: M25.512 Pain in left shoulder (principal); S46.812A Strain of other muscles, fascia and tendons at shoulder and upper arm level, left arm, initial encounter; M75.102 Unspecified rotator cuff tear or rupture of left shoulder, not specified as traumatic; M19.012 Primary osteoarthritis, left shoulder; M25.412 Effusion, left shoulder
CPT/HCPCS: 73221

== ENCOUNTER 2024-12-30 18:10 | Emergency (ER) | payer MEDICARE, SELFPAY ==
--- OUTSIDE RECORDS SUMMARY | 2024-11-24 10:30 | XMS_ITS | Encounter Summary ---
Author Organization [facility] Address [address] [place] [address] Care Team Providers Care Manager Of Production Name Role Phone Jill Mcbride, P.A.-C. Primary Care Pro vider Reason for Visit * Reason Comments Pre-op Exam * Outpatient (Routine) - Closed Specialty Diagnoses / Procedures Referred By Dhiraj t Referred To Contact [facility] Jill Mcbride MPAS, P.A.-C. [address] [place] [address] Phone: tel: fax: [facility] Referral ID Status Reason Start Date Expiration Date Visits Re quested Visits Authorized [id number] Closed 08/18/2024 02/17/2026 1 1 Encounter Details Date Type Department Care Team (Latest Contact Info) Description 11/24/2024 10:30 AM CDT Office Visit [facility] in [place], [place] [address] [place] [address] Jill Mcbride MPAS, P.A.-C. [address] [place] [address] Stroke Cerebrovascular Accident Personal History (Primary Dx) Social History Tobacco Use Types Packs/Day Years Used Date Smoking Tobacco: Former Passive Smoke Exposure: Past Smokeless Tobacco: Former Alcohol Use Standard Drinks/Week Comments Not Currently 0 (1 standard drink = 0.6 oz pur e alcohol) 15 years free of alcohol [facility] [place] Utilities Answer Date Recorded In the past [...] Sex Assigned at Male 05/13/2023 11:36 AM HAUL DRIVER Legal Sex Male 9:32 PM HAUL DRIVER Gender Identity Male 05/13/2023 11:36 AM HAUL DRIVER Sexual Orientation Straight 05/13/2023 11 :36 AM HAUL DRIVER documented as of this encounter Last Filed Vital Signs Vital Sign Reading Time Taken Comments Blood Pressure 87/53 11/24/2024 10:31 AM CDT Pulse 68 11/24/2024 10:31 AM CDT Temperature 36 C (96.8 F) 11/24/2024 10:31 AM CDT Respiratory Rate 16 11/24/2024 10:3 1 AM CDT Oxygen Saturation 98% 11/24/2024 10: 31 AM CDT Inhaled Oxygen Concentration - - Weight 98.9 kg (217 lb 14.8 oz) 025 10:31 AM CDT Height 169 cm (5' 6.54) 11/24/2024 10: 31 AM CDT Body Mass Index 34.61 11/24/2024 10:31 AM CDT documented in this encounter Progress Notes * Jill Mcbride MPAS, P.A.-C. - 11/24/2024 10:30 AM CDT Patient is scheduled to see provider today for preoperative assessment for shoulder surgery. Twentyminutes prior to our appointment, patient started to experience dizziness, blurry vision, slurred speech, confusion, and was incontinent of urine. He has a past medical of coronary artery disease, cardiac stent, diastolic heart failure, hypertension, chronic kidney disease, obesity, hyperlipidemia,and prior stroke in 2023. BP: 87/53 with HR 68. Rapid neurologic assessment performed - no weaknessappreciated in upper or lower extremities. Pupils equal round and reactive. Slurred speech and confusion evident in my brief conversation with the patient. He will be taken to [facility] ED with concern for stroke. Jill Mcbride PA-C documented in this encounter Plan of Treatment Not on file documented as of this encounter Visit Diagnoses Diagnosis Stroke Cerebrovascular Accident Personal History- Primary documented in this encounter Additional Health Concerns Assessment Noted Time PHQ-9 Depression Total Score: 20 021 7:40 AM CDT documented as of this encounter Care Teams Manager Of Production Relationship Specialty Start Date End Date Jill Mcbride MPAS, P.A.-C. [address] [facility] [place] [id number] PCP - General Internal Medicine 04/03/24 documented as of this encounter
--- OUTSIDE RECORDS SUMMARY | 2024-12-30 18:13 | XMS_ITS | Clinical Summary ---
Author Organization [facility] Address [address] [place] [id number] Care Team Providers Care Rn Resource Nurse Name Role Phone Miller Quijano MD Primary Care P rovider Allergies Active Allergy Reactions Criticality Noted Date Comments Lisinopril Cough Low 07/15/2017 Methylphenidate Hcl Hallucinations Medium 02/05/2020 Capsules caused depressed mood Medications BiPapIndications: Obstructive sleep apnea BIPAP machine for home use at pressure: Epap 8, IPAP max 25, PS 4-8 rise time 3 , Heated humidifier x 1, Humidifier chamber x 1, 1 Device 12/21/19 19 Active lancets (ACCU-CHEK SOFTCLIX LANCETS)Indicatio ns:Diabetes mellitus type 2, uncontrolled, with complications Dispense meter, test strips, lancets covered by pt ins. E11.65 NIDDM type II, uncontrolled - Test 3 times/day, Reason: High A1C 100 Each 09/18/19 20 Active aspirin chewable 81 mg chewable tabletIndications :NSTEMI (non-ST elevated myocardial infarction) (HC) Chew 1 Tablet (81 mg) by mouth once daily. 100 tablet. 3 07/23/19 21 Active blood sugar diagnostic (Blood Glucose Test) stripIndications: Diabetes mellitus type 2 with complications (HC) As directed. Test 4 times per day. 200 Each 6 02/16/20 24 Active lancetsIndication s:Diabetes mellitus type 2 with complications (HC) As directed. Test 4 times per day. 200 Each 12 02/16/20 24 Active gabapentin (NEURONTIN) 600 mg tablet Take 600 mg by mouth two times daily. Active losartan (COZAAR) 25 mg tabletIndications :Hypertension Take 1 Tablet (25 mg) by mouth once daily. 90 Tablet 1 12/12/19 25 Active amLODIPine (NORVASC) 5 mg tabletIndications :Hypertension Take 1 Tablet (5 mg) by mouth once daily. 90 Tablet 12/14/19 25 Active rosuvastatin (CRESTOR) 40 mg tabletIndications :Hyperlipidemia with target LDL less than 70 Take 1 Tablet (40 mg) by mouth once daily. 90 Tablet 1 12/14/19 25 Active Mounjaro 7.5 mg/0.5 mL penIndications:Ty pe 2 diabetes mellitus with complication, with long-term current use of insulin (HC) Inject 7.5 mg subcutaneous once weekly. 12 Pen 12/14/19 25 Active ezetimibe (ZETIA) 10 mg tabletIndications :Hyperlipidemia with target LDL less than 70 Take 1 Tablet (10 mg) by mouth once daily. 90 Tablet 1 12/14/19 25 Active dapagliflozin propanediol (Farxiga) 10 mg tabletIndications :Type 2 diabetes mellitus without complication, with long-term current use of insulin (HC) Take 1 Tablet (10 mg) by mouth once daily. 30 Tablet 12/14/19 25 Active carvediloL (Coreg) 6.25 mg tabletIndications :Coronary artery disease, unspecified vessel or lesion type, unspecified whether angina present, unspecified whether [place] or transplanted heart,Ischemic cardiomyopathy Take 1 Tablet (6.25 mg) by mouth two times daily. 180 Tablet 3 12/22/19 25 Active sildenafil citrate (VIAGRA) 25 mg tabletIndications :Erectile dysfunction, unspecified erectile dysfunction type Take 1-3 Tablets (25-75 mg) by mouth once daily if needed for Erectile Dysfunction. Take 30 minutes to 4 hours before sexual activity. Max 100mg/24hr. 30 Tablet 1 12/26/19 25 Active atomoxetine (STRATTERA) 25 mg capsule Take 25 mg by mouth once daily. Active lamoTRIgine 150 mg tablet Take 1 Tablet by mouth once daily. 08/25/20 25 Active OLANzapine (ZYPREXA) 5 mg tablet Take 2.5 mg by mouth once daily in the morning. 12/26/19 Active BD TRI 2ND GEN PEN NEEDLE 32 gauge x 5/32Indications: Diabetes mellitus type 2, uncontrolled, with complications Inject subcutaneous. Inject insulin subcutaneously 3 times daily 1 box 12 08/16/19 20 025 Disconti nued(*Me d complete /Regimen complete /Level of care change) ACCU-CHEK GUIDE TEST STRIPS stripIndications: Diabetes mellitus type 2, uncontrolled, with complications USE TO TEST BLOOD SUGARS FOUR TIMES DAILY 400 Strip 2 04/30/20 20 025 Disconti nued(*Me d complete /Regimen complete /Level of care change) rosuvastatin (CRESTOR) 40 mg tablet Take 40 mg by mouth once daily. 025 Disconti nued(Reo rder (E-cance l not sent)) Insulin Syringe-Needle U-100 (BD Insulin Syringe Ultra-Fine) 0.5 mL 31 gauge x 5/16 Use to inject insulin as directed. 100 Each 1 12:26 PM CDT 12/06/19 21 025 Disconti nued(*Me d complete /Regimen complete /Level of care change) Mounjaro 7.5 mg/0.5 mL pen Inject 7.5 mg subcutaneous once weekly. 10/27/19 025 Disconti nued(Reo rder (E-cance l not sent)) blood-glucose meterIndications: Diabetes mellitus type 2 with complications (HC) As directed. Dispense meter covered by pts insurance. 1 Each 02/16/20 24 025 Disconti nued(*Me d complete /Regimen complete /Level of care change) Lantus Solostar U-100 Insulin 100 unit/mL (3 mL) penIndications:Ty pe 2 diabetes mellitus with complication, with long-term current use of insulin (HC) Inject 15 units subcutaneous two times daily. 15 mL 11/28/19 25 025 Disconti nued(*Me d complete /Regimen complete /Level of care change) amLODIPine (NORVASC) 10 mg tabletIndications :Hypertension Take 1 Tablet (10 mg) by mouth once daily for 7 days. 7 Tablet 12/07/19 25 025 Disconti nued(Reo rder (E-cance l not sent)) dapagliflozin propanediol (Farxiga) 10 mg tabletIndications :Type 2 diabetes mellitus without complication, with long-term current use of insulin (HC) Take 1 Tablet (10 mg) by mouth once daily for 7 days. 7 Tablet 12/07/19 25 025 Disconti nued(*Me d complete /Regimen complete /Level of care change) amLODIPine (NORVASC) 10 mg tabletIndications :Hypertension Take 1 Tablet (10 mg) by mouth once daily. 7 Tablet 12/12/19 025 Disconti nued(Reo rder (E-cance l not sent)) lamoTRIgine 100 mg tabletIndications :Moderate major depression (HC) Take 1 Tablet (100 mg) by mouth once daily. 12/12/19 025 Disconti nued(*Me d complete /Regimen complete /Level of care change) ezetimibe (ZETIA) 10 mg tabletIndications :Hyperlipidemia with target LDL less than 70 Take 1 Tablet (10 mg) by mouth once daily. 12/12/19 025 Disconti nued(Reo rder (E-cance l not sent)) albuterol HFA (PRO-AIR; VENTOLIN; PROVENTIL) 90 mcg/actuation inhalerIndication s:Chronic obstructive pulmonary disease, unspecified COPD type (HC) Inhale 1-2 Puffs by mouth every 4 hours if needed for Shortness Of Breath or Wheezing. 12/12/19 025 Disconti nued(*Me d complete /Regimen complete /Level of care change) dextroamphetamine -amphetamine (AdderalL) 20 mg tabletIndications :Attention deficit hyperactivity disorder (ADHD), unspecified ADHD type Take 1 Tablet (20 mg) by mouth two times daily. 12/12/19 25 025 Disconti nued(*Me d complete /Regimen complete /Level of care change) carvediloL (COREG) 3.125 mg tabletIndications :Hypertension Take 1 Tablet (3.125 mg) by mouth two times daily with meals. 180 Tablet 1 12/12/19 25 025 Disconti nued(*Me d complete /Regimen complete /Level of care change) OLANZAPINE ORAL Take 1 Tablet by mouth once daily. 025 Disconti nued(*Me d complete /Regimen complete /Level of care change) Active Problems Patient Care Coordination No te Formatting of this note migh t be different from the original. HF/Structural Research Eligibility Review Date: 05/18/19 The patient did not qualify for any currently enrolling studies at the time of this review. Problem Noted Date Diagnosed Date Bipolar disorder 12/25/2024 Overview (12/25/2024): AI Summary: Bipolar disorder was in the patient's history. It was mentioned the patient does not appear to be on medication for bipolar II disorder. Care management and psychiatry consultation were recommended on 11/27/2024 and 01/05/2024, respectively. 05/31/23: TSH 3.0 mIU/L Recent encounter dx: 11/27/24: Appointment - [facility] 08/17/24: [facility] in [place], [place] (from [facility]) 05/01/24: Comprehensive Visit - [facility], [facility] in [place], [place] (from [facility]) 01/05/24: Appointment - [facility] 10/14/23: Office Visit - Family Medicine, [facility] - [place] (from [facility]) Recent notes: 11/27/24: Progress Notes by Aissatou Berrios NP ... [+] Bipolar 2 disorder (HC) ... [+] ? Bipolar 2 disorder (HC) F31.81 ... [+] Bipolar 2 disorder (HC) F31.81 AMB REFERRAL TO CARE MANAGEMENT 11/25/24: Discharge Summary by Nati Todd MD ... [+] Luis Eduardo Gentile is a(n) 59 y.o. with a history of has a past medical history of Acute on chronic combined systolic (congestive) and diastolic (congestive) heart failure (HC) (08/07/2020), ADHD (attention deficit hyperactivity disorder), Bipolar 2 disorder (HC), Chondromalacia, Degenerative tear of medial meniscus of left knee, Degenerative tear of medial meniscus of right knee, Depression, Di... 11/24/24: ED Provider Note by Saul Crow MD ... [+] ? Bipolar 2 disorder (HC) 05/01/24: H&P Notes - H&P by SERA Caicedo, P.A.-C. (from [facility]) ... [+] His past medical history is also notable for coronary artery disease, diabetes mellitus type 2 with peripheral neuropathy, obstructive sleep apnea hyperlipidemia, hypertension, ADHD, and bipolar disorder. ... [+] #10 Bipolar Disorder (HCC) 01/05/24: Progress Notes by Anselmo Altman MD ... 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 Mild left ventricular systolic dysfunction with an LVEF of 50%, normal LV volumes, marked increase in global myocardial mass with maximal wall thickness 2.1 cm, concentric LVH, and a prominent decrease in global longitudinal strain of -7% were also observed. It was assessed that prominent concentric LVH with mild systolic dysfunction was likely the combination of HTN, AODM, and obesity, with no evidence for hypertrophic or infiltrative cardiomyopathy. Recent studies: 08/09/20: MR CARDIAC WWO by Marlene Mensah NP, Mike Barker MD ... [+] FINAL IMPRESSION ===== 1. Mild left ventricular systolic dysfunction, LVEF 50%. A. Normal LV volumes with marked increase in global myocardial mass with maximal wall thickness 2.1 cm and concentric LVH. B. Prominent decrease in global longitudinal strain -7%. C. Small basilar inferior LV divert... Recent notes: 12/21/24: Progress Notes by FLORENTINO Sánchez ... [+] Subtle replacement myocardial fibrosis all sparing the endocardium consistent with his severe concentric LVH (see below). 12/02/20: Consult Notes - Consults - Outpatient by Manuela Anne, B.Ch. (from [facility]) ... [+] Subtle replacement myocardial fibrosis all sparing the endocardium consistent with his severe Erectile dysfunction 12/25/2024 Stage 3a chronic kidney disease 11/27/2024 Overview (12/25/2024): 08/17/24: Cr 1.70 mg/dL 08/17/24: GFR 46 mL/min/BSA 08/17/24: BUN 20 mg/dL On meds: carvedilol, dapagliflozin AI Summary: The patient had hypertensive heart and chronic kidney disease with heart failure and stage 2 chronic kidney disease, which was mentioned in the past medical history. The patient also had stage 3 chronic kidney disease, which was slightly worse than typical on 11/24/2024. On 02/09/2021, the etiology of stage 3 chronic kidney disease was unclear. 11/27/24: Cr 1.38 mg/dL 11/27/24: GFR 59 mL/min/1.73m2 11/27/24: BUN 17 mg/dL Recent notes: 11/27/24: Progress Notes by Aissatou Berrios NP ... [+] ? Stage 3 chronic kidney disease (HC) N18.30 02/09/21: H&P Notes - Note by Mayte uCi P.A.-C. (from [facility]) ... [-] CKD Stage 3 ... [+] #10 Chronic kidney disease, stage 3 Etiology was unclear monitor BMP Demyelinating disease of central nervous system 11/27/2024 Overview (12/25/2024): AI Summary: On 08/15/2022, cerebral atrophy with nonspecific white matter disease was mentioned as likely. Imaging on 11/24/2021 showed central and cortical atrophy and chronic ischemic white matter disease, with no interval change since 2019. Mild nonspecific white matter disease, most likely due to chronic microvascular ischemia, was noted on 08/05/2020, and nonspecific white matter disease, typical of chronic microvascular disease, was observed on 03/09/2019. 08/17/24: Glu 118 mg/dL On meds: amphetamine aspartate / amphetamine sulfate / dextroamphetamine saccharate / dextroamphetamine sulfate, gabapentin Recent studies: 08/05/20: CT HEAD BRAIN WO by AVERY Roman, Jeffry Bradley MD ... [+] IMPRESSION: 1. No acute abnormality evident. No change from 03/09/2019. 2. Chronic microvascular infarct in the left caudate body and prominent perivascular space or old lacunar infarct in the right globus pallidus. 3. Mild nonspecific white matter disease, most likely due to chronic microvascular ischemia. 4. Mild volume loss. Please note that all CT scans at this facility use dose modulation... 03/09/19: CT HEAD BRAIN WO by Jeffry Deal MD, Omid Dorsey MD ... [+] IMPRESSION: 1. No acute findings. 2. Nonspecific white matter disease, typical of chronic microvascular disease. 3. Bilateral ethmoid and right sphenoid sinus disease. Please note that all CT scans at this facility use dose modulation, iterative reconstruction, and/or weight-based dosing when appropriate to reduce radiation dose to as low as reasonably achievable. Recent notes: 08/15/22: History and physical note - History & Physical Note (from [facility]) ... [+] Cerebral atrophy with nonspecific white matter disease, likely 08/09/20: Progress Notes - [facility] HOSPITALIST SERVICE -- DAILY PROGRESS NOTE by FLORENTINO Wellington ... [+] Mild nonspecific white matter disease, most likely due to chronic microvascular ischemia. 03/09/19: H&P - ADMISSION HISTORY AND PHYSICAL by Rick Jarvis MD ... [+] Nonspecific white matter disease, typical of chronic microvascular disease. AI Summary: The patient's history included demyelinating disease of the central nervous system, as documented on 11/27/2024. Imaging studies revealed cerebral atrophy with nonspecific white matter disease, likely due to chronic microvascular ischemia, and multiple old lacunar infarcts, with some being new compared to a 2020 exam; no acute intracranial process was noted since 2019. 11/27/24: Glu 93 mg/dL On meds: gabapentin Recent studies: 11/24/24: CT HEAD STROKE PROTOCOL WITHOUT CONTRAST Thrombolytic Candidate by Saul Crow MD, Jayjay Stoner MD ... [+] 1. No intracranial bleed or mass effect. 2. Multiple old lacunar infarcts within the bilateral basal ganglia and dexter radiata. Although old, several of these are new compared to the 2020 exam. 3. Cerebral atrophy with nonspecific white matter disease. ... [+] Cerebral atrophy with nonspecific white matter disease. 08/05/20: CT HEAD BRAIN WO by AVERY Roman, Jeffry Bradley MD ... [+] IMPRESSION: 1. No acute abnormality evident. No change from 03/09/2019. 2. Chronic microvascular infarct in the left caudate body and prominent perivascular space or old lacunar infarct in the right globus pallidus. 3. Mild nonspecific white matter disease, most likely due to chronic microvascular ischemia. 4. Mild volume loss. Please note that all CT scans at this facility use dose modulation... 03/09/19: CT HEAD BRAIN WO by Jeffry Deal MD, Omid Dorsey MD ... [+] IMPRESSION: 1. No acute findings. 2. Nonspecific white matter disease, typical of chronic microvascular disease. 3. Bilateral ethmoid and right sphenoid sinus disease. Please note that all CT scans at this facility use dose modulation, iterative reconstruction, and/or weight-based dosing when appropriate to reduce radiation dose to as low as reasonably achievable. Recent notes: 11/27/24: Progress Notes by Aissatou Berrios NP ... [+] ? Demyelinating disease of central nervous system (HC) G37.9 11/24/24: ED Provider Note by Saul Crow MD ... [+] 3. Cerebral atrophy with nonspecific white matter disease. 08/15/22: History and physical note - History & Physical Note (from [facility]) ... [+] Cerebral atrophy with nonspecific white matter disease, likely 08/09/20: Progress Notes - [facility] HOSPITALIST SERVICE -- DAILY PROGRESS NOTE by FLORENTINO Wellington ... [+] Mild nonspecific white matter disease, most likely due to chronic microvascular ischemia. 03/09/19: H&P - ADMISSION HISTORY AND PHYSICAL by Rick Jarvis MD ... [+] Nonspecific white matter disease, typical of chronic microvascular disease. Presence of coronary angioplasty implant and gra ft 08/17/2024 History of completed stroke 05/02/2024 Overview (11/24/2024): Hospitalized for ischemic stroke Jun 2023. Aspirin 81 mg daily recommended lifelong. Hyperlipidemia with target LDL less than 70 07/01 Depression with anxiety 07/11/2020 Chronic combined systolic and diastolic heart fa ilure 12/21/2018 s/p left total knee replacem ent on 09/12/[address] Uvaldo Leavitt 10/24/2018 Status post right total knee arthroplasty, DOS: 04/01/[address] Leavitt 05/12/2018 NSTEMI (non-ST elevated myocardial infarction) 0 12/23/2017 HTN (hypertension) 12/23/2017 VANESSA 01/23/2014 AHI-114 02/02/2014 Type 2 diabetes mellitus 12/11/2013 Overview (12/25/2024): AI Summary: The patient has a history of type 2 diabetes mellitus, which was uncontrolled with complications as of 07/11/2020. The patient was on Mounjaro once a week and Lantus insulin 15 units daily for diabetes and had lost 150 pounds on Mounjaro. Medications included metformin (prescribed as early as 08/21/2014), glipizide (prescribed as early as 04/04/2018), insulin aspart, insulin glargine (prescribed as early as 08/09/2019), and dapagliflozin (prescribed as early as 08/07/2020); blood glucose meters, lancets and blood sugar diagnostic strips were also prescribed. 11/24/24: A1c 5.3 % 11/27/24: Cr 1.38 mg/dL On meds: flash glucose sensor (FreeStyle Falguni 2 Sensor) kit (external), insulin glargine, tirzepatide Recent encounter dx: 11/27/24: Appointment - [facility] 11/24/24: Discharge - [facility], [facility], 311, 311 / 1 09/19/24: Clinical Communication - Department of Family Medicine in [place], [place], Family Medicine (from [facility]) 09/14/24: Clinical Communication - Department of Family Medicine in [place], [place], Family Medicine (from [facility]) 06/08/24: [facility]ill - [facility] in [place], [place] (from [facility]) Recent notes: 11/25/24: Discharge Summary by Nati Todd MD ... [+] For diagnoses: Diabetes mellitus type 2, uncontrolled, with complications ... [+] For diagnoses: Diabetes mellitus type 2 with complications (HC) ... [+] For diagnoses: Type 2 diabetes mellitus without complication, without long-term current use of insulin (HC) ... [+] E11.65 NIDDM type II, uncontrolled - Test 3 times/day, Reason: High A1C 11/24/24: H&P - HISTORY & PHYSICAL by Michelle Linda MD ... [+] ? 1Uncontrolled type 2 diabetes mellitus with complication, with long- term current use of insulin 07/11/2020 05/01/24: H&P Notes - H&P by SERA Caicedo, P.A.-C. (from [facility]) ... [+] His past medical history is also notable for coronary artery disease, diabetes mellitus type 2 with peripheral neuropathy, obstructive sleep apnea hyperlipidemia, hypertension, ADHD, and bipolar disorder. ... [+] Diagnosis Date Coronary Artery Disease (Unspecified) Diabetes Mellitus Type 2 (HCC) Headache Unspecified Heart Failure NOS Hypertensive Urgency 07/18/2019 Myocardial Infarction Old Sleep Apnea Stroke (HCC) ... [+] #2 Diabetes Mellitus Type 2 Peripheral Neuropathy (HCC) ... [+] #3 Diabetes Mellitus Type 2 Hyperglycemia (HCC) 11/14/23: ED Notes - ED Provider Notes by Ang Castelan M.D. (from [facility]) ... [+] Diabetes Mellitus Type 2 (HCC) ... [+] Diabetes Mellitus Type 2 Peripheral Neuropathy (HCC) 04/07/2023 ... [+] Diabetes Mellitus Type 2 Hyperglycemia (HCC) 12/11/2013 06/03/23: Discharge Summaries - Discharge Summary by Claudia Prescott D.O. (from [facility]) ... [+] Diabetes Mellitus Type 2 Hyperglycemia (HCC) ... [+] Luis Eduardo Gentile is a 58 year old male with past medical history including: Hypertension, hyperlipidemia, type 2 diabetes (A1c 9.5), coronary artery disease, and VANESSA compliant with CPAP machine who presented to the ED on 05/31/2023 due to right-sided weakness and slurred speech. Obesity, unspecified 01/12/2011 Cannabis abuse 12/13/2009 ADHD (attention deficit hyperactivity disorder) Resolved Problems Problem Noted Date Diagnosed Date Resolved Date Altered mental status 11/24/20242024 Encounter for long-term (cur rent) use of insulin 11/24/2024 12/25/2024 Overview (11/24/2024): insulin glargine (Lantus Solostar U-100 Insulin) 100 unit/mL (3 mL) pen ... Inject 42 Units under the skin 2 (two) times a day. Pharmacy select brand per patient insurance/preference. ... order date: 11/23/24, start date: 06/09/24, end date: 06/09/25 (reported by [facility]) insulin glargine 100 unit/mL injection (LANTUS) ... Inject 26 units subcutaneous every 12 hours. ... order date: 01/06/24, start date: 01/06/24 AI Summary: The patient has a history of diabetes mellitus type 2, which was mentioned to have been present for approximately 10 years, and was associated with peripheral neuropathy and hyperglycemia. On 07/18/2019, the patient had hypertensive urgency. The patient was prescribed Farxiga, Mounjaro, and insulin glargine for diabetes, and there were no plans to change the medication regimen as of 05/01/2024. Recent encounter dx: 01/05/24: Appointment - [facility] 02/25/21: Appointment - [facility] Stroke-like symptom 11/24/2024 12/26/19 25 Hypotension 11/24/2024 12/25/2024 RUBY (acute kidney injury) 12/05/2020 Chest pain 12/03/2020 12/25/2024 Acute on chronic combined sy stolic (congestive) and diastolic (congestive) heart failure 08/07/2020 11/27/2024 Diastolic dysfunction 07/12/20202024 Ischemic cardiomyopathy 07/12/202012/02 Uncontrolled type 2 diabetes mellitus with complication, with long-term current use of insulin 07/11/2020 12/25/2024 Coronary artery disease invo lving [place] coronary artery of [place] heart with unstable angina pectoris 07/11/2020 12/25/2024 Hyponatremia with increased serum osmolality 11/27/2024 Essential hypertension 03/09/201912/25 Hypertensive emergency 01/25/201911/27 Hypertensive emergency 12/20/201811/27 Status post left knee replacement 09/12/2018 05/18/2019 RUBY (acute kidney injury) 04/04/2018 RUBY (acute kidney injury) 04/03/2018 Morbid obesity with BMI of 45.0-49.9, adult 04/01/2018 12/25/2024 Coronary artery disease 04/01/201812/02 Overview (08/05/2020): 07/2020 NSTEMI, recommended for CABG, but declined given he refuses blood products. S/p PCI to LAD 07/12/20; mRCA with 50% stenosis - dPR was 0.97 hence no PCI was performed 08/05/2020 presented as STEMI>no intervention Degenerative tear of medial meniscus of both knees 01/25/2018 01/25/2019 Arthritis of left knee 01/11/201812/25 Arthritis of right knee 01/11/201812/02 Right knee pain 01/11/2018 12/25/2024 Degenerative tear of medial meniscus of left knee 12/29/2017 01/25/2019 Left knee pain 12/29/2017 12/25/2024 Chondromalacia 12/29/2017 12/25/2024 Parotitis 11/29/2013 12/25/2024 Depression 12/25/2024 Hypertension 04/01/2018 Screening for colon cancer 0 01/25/2019 Primary osteoarthritis of right knee 01/25/2019 Encounters Date Type Department Care Team Description 12/29/2024 9:35 AM CDT Office Visit [facility] [address] [place] [address] Aissatou Berrios NP Medication Management (Med Check Follow Up ) 12/29/2024 Telephone [facility] [address] [facility] [address] [facility] [address] [place] [id number] Charles Barragan MBBS Results (Nuc gxt) 12/28/2024 7:57 AM CDT - 12/28/2024 11:59 PM CDT Hospital Encounter [address] [address] Charles Barragan MBBS 12/28/2024 7:55 AM CDT - 12/28/2024 7:56 AM CDT Hospital Encounter [address] [address] Charles Barragan MBBS Coronary artery disease, unspecified vessel or lesion type, unspecified whether angina present, unspecified whether [place] or transplanted heart; Preoperative cardiovascular examination 12/28/2024 Patient Outreach [facility] Management - Care Management Navigation/[facility] [address] [place] [id number] Malia Hamm LSW Care Management Intake (Social work care management intake outreach./) 12/28/2024 Travel 12/26/[address] [address] Charles Barragan MBBS Appointment Reminder 12/25/2024 1:00 PM CDT Office Visit [facility] [address] [place] [address] Miller Quijano MD Establish Care 12/25/2024 Telephone [facility] [address] [place] [address] Miller Quijano MD Medication Management 12/25/2024 Telephone [facility] [address] [place] [address] Miller Quijano MD Medication Management 12/25/2024 Travel 12/21/2024 1:30 PM CDT Office Visit [facility] [address] [facility] [place] [phone] Charles Barragan MBBS Consult (Pre-operative clearance needed ) 12/21/2024 10:00 AM CDT Office Visit [facility] [address] [place] [phone] Sussy Page, OD Eye Exam (Diabetic) 12/21/[address] [address] Aissatou Berrios NP Form 12/20/2024 10:00 AM CDT Office Visit [address] [phone] Aissatou Berrios NP Medication Management (All current medications he is taking) 12/20/[address] [address] Aissatou Berrios NP Medication Management (dapagliflozin propanediol (Farxiga) 10 mg tablet) 12/20/2024 Travel 12/14/2024 Patient Outreach [facility] Care Management - Care Management Navigation/[facility] [address] [place] [address] Malia Hamm LSW Care Management Intake (Social work care management intake outreach./) 12/13/2024 10:50 AM CDT Office Visit [address] [address] Aissatou Berrios NP Medication Management 12/13/2024 Telephone [facility] [address] [place] [address] Aissatou Berrios NP Medication Management (dapagliflozin propanediol (Farxiga) 10 mg tablet) 12/13/2024 Travel 12/11/2024 10:10 AM CDT Office Visit [facility] [address] [place] [address] Roberto Leroy MD Pre-Op Exam (Left Shoulder) 12/11/[address] [address] Clinic, [facility] Refill Request 12/11/2024 Orders Only [facility] [address] [place] [address] Roberto Leroy MD 1 scan: (1-Ord) 12/11/2024 12/11/2024 Travel 12/06/2024 10:44 AM CDT - 12/06/2024 1:02 PM CDT Emergency [facility] [address] [place] [address] Wally Valdez MD Medication management (Primary Dx); Hypertension; Type 2 diabetes mellitus without complication, with long-term current use of insulin (HC) Discharge Disposition: Home Self Care 12/06/2024 Telephone [facility] [address] [place] [address] Cielo Tamayo LSW ER Follow up 12/06/2024 Travel 11/28/2024 Telephone [facility] [address] [place] [address] Aissatou Berrios NP Results 11/28/2024 Refill [facility] [address] [place] [address] Anselmo Altman MD Refill Request (Farxiga) 11/27/2024 9:35 AM CDT Office Visit [address] [phone] Aissatou Berrios NP Hospital F/U 11/27/2024 Travel 11/27/2024 Patient Outreach [facility] [address] [place] [address] Aparna Emery RN Primary RN Care Management (Hospital DC: 11/25/24/LACE: 69/Hypotension ); Hospital F/U 11/24/2024 10:46 AM CDT - 11/25/2024 11:35 AM CDT Hospital Encounter [facility] [address] [facility] [place] [address] aSul Crow MD Gorden Klukas, Michelle Bernal MD Hospitalist, [facility] Hudson, Shahzad Alvarez, Nati Zepeda MD Confusion (Primary Dx); Hypotension, unspecified hypotension type; Urinary incontinence, unspecified type; Chronic kidney disease, unspecified CKD stage; Acute pain of right shoulder; Chronic combined systolic and diastolic heart failure (HC); Uncontrolled type 2 diabetes mellitus with complication, with long-term current use of insulin Discharge Disposition: Home Self Care 11/24/2024 Travel from Last 3 Months Immunizations Immunization Administration Dates Next Due Hep B (Hepatitis B (Adult) Recombinant Adjuvanted) 05/01/2024 Hepatitis B (Adult) 02/01/2015 INFLUENZA, IIV3 PF (AGE >= 6 MO) 05/01/2024 Influenza Virus, Unspecified 01/25/2016 Influenza, IIV4 02/19/2023,,03/10/2019,2018,01/05/2016,02/01/2015 Influenza, IIV4 (=>6mos) MDV 03/12/2020 Pneumococcal Poly,23-Valent (Pneumovax) 02/13/2020 Pneumococcal conj 13-Valent (Prevnar 13) 02/01/2015 Tdap 03/24/2022,07/06/2011 Family History Medical History Relation Name Comments [...] Premature CHD (under age 60) Paternal Uncle [place] Good Health Sister 3 Good Health Sister [...] 05/03/2003 Smokeless Tobacco: Never Tobacco Cessation:Counseling Given: No Comments:hx marijuana quit ~2004 Alcohol Use Standard Drinks/Week Comments Not Currently 0 (1 standard drink = 0.6 oz pure alcohol) 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 07/26/14. no drinking at all for 7 yrs PHQ-2 Answer Date Recorded PHQ-2 TOTAL SCORE 1 12/20/2024 Social Connections Answer Date Recorded Do you often feel lonely or isolated from those around you? 0 11/24/2024 Financial Resource Strain Answer Date R ecorded Difficulty of Paying Living Expenses 1 11/24/2024 Difficulty of Paying Living Expenses 2 11/24/2024 Food Insecurity Answer Date Recorded Do you worry your food will run out before you are able to buy more? 1 11/24/2024 Transportation Needs Answer Date Record ed Does lack of transportation keep you from medica l appointments? 1 11/24/2024 Does lack of transportation keep you from work, meetings or getting things that you need? 1 11/24/2024 Housing Stability Answer Date Recorded What is your housing situation today? 1 11/24/2024 Interpersonal Safety Answer Date Record ed Are you being hit, kicked, p ushed or yelled at (see row info)? No 12/06/2024 Interpersonal Safety Abuse 12 - 18 Not on file 12/06/2024 Interpersonal Safety Ambulatory Vulnerability No t on file 12/06/2024 Utilities Answer Date Recorded Do you have trouble paying f or utilities (for example, heat, electricity, water, phone)? 2 11/24/2024 Sex and Gender Information Value Date Recorded Sex Assigned at Male 12/06/2024 10:44 AM CDT Legal Sex Male 8:13 AM [employer]CH ASS[employer] Gender Identity Male 12/06/2024 10:44 AM CDT Sexual Orientation Straight 12/06/2024 10 :44 AM CDT Occupation Industry Job Start Date Job End Date unemployed Not on file Not on file Not on file Obstetrics History Last Filed Vital Signs Vital Sign Reading Time Taken Comments Blood Pressure 128/76 12/29/2024 9:31 AM CDT Pulse 81 12/29/2024 9:31 AM CDT Temperature 36.1 C (96.9 F) 12/06/2024 10:51 AM CDT Respiratory Rate 18 12/06/2024 10:5 1 AM CDT Oxygen Saturation 97% 12/29/2024 9:31 AM CDT Inhaled Oxygen Concentration - - Weight 101.4 kg (223 lb 9.6 oz) 12/29/2024 9:31 AM CDT Height 170.7 cm (5' 7.21) 12/29/2024 9:31 AM CD T Body Mass Index 34.81 12/29/2024 9:31 AM CDT Plan of Treatment Upcoming Encounters Date Type Department Care Team (Late st Contact Info) Description 01/26/2025 9:00 AM CDT Telemedicine [facility] [address] [place], [place] [phone] Víctor Bella MBBS [address] [phone] 02/26/2025 10:00 AM CDT Office Visit [facility] [address] [place] [address] Miller Quijano MD [address] [place] [address] Health Maintenance Due Date Last Done Comments HIV for age 15-65 1979 Zoster (shingles) series for age 50+ (1 of 2) 2014 RSV vaccine for adults or (1 - Risk 60-74 years 1-dose series) 2024 Hepatitis B series for 19+ ( 3 of 3 - 19+ 3-dose series) 06/26/2024 05/01/2024, 02/01/2015 Influenza Vaccine (#1) 2025 , 02/19/2023, 03/12/2020, Additional history exists Pneumococcal series for age 50+ (3 of 3 - PCV20 or PCV21) 02/12/2025 02/13/2020, 02/01/2015 Depression screening for age 12+ 12/21/2025 12/21/2024, 12/20/2024, 02/22/2019, Additional history exists BMI (ht and wt on same day) for age 18+ 12/29/2025 12/29/2024, 12/13/2024, 12/11/2024, Additional history exists Colonoscopy through age 75 01/15/2028 01/14/2018 Lipids for age 45-75 11/24/2029 11/24/2024, 12/04/2020, 07/12/2020, Additional history exists Tetanus booster 03/24/2032 03/24/2022, 03/09/2011, 07/06/2011 Hepatitis C screening for ag e 18-79 Completed 12/27/2017 COVID-19 vaccine series Completed 05/01/20, 02/19/2023, 03/24/2022, Additional history exists Goals Goal Patient Goal Type Associated Problems Recent Progress Patient-Stated? Author BLOOD PRESSURE - MAINTAINS BP less than 140/90 Blood Pressure No Najma Morse PA Medical Devices Implanted Type Area Supply Chain Vice President Device Identifier Shelf Expiration Date Model / Serial / Lot Cmnt Bone Simplex P 1pk - [id number] Implanted:Qty: 2 on 04/01/2018 by Uvaldo Leavitt MD at [facility] Right: Knee [employer] 07/31/2020 6191-1-00 1# / / [id number] Fem Rt Sz4 Triathlon Cruc Ret Co Cr - [id number] Implanted:Qty: 1 on 04/01/2018 by Uvaldo Leavitt MD at [facility] Right: Knee [employer] 12/12/2022 5510-F-40 2# / / [id number] Baseplate Tib Sz4 Triathlon Pe - [id number] Implanted:Qty: 1 on 04/01/2018 by Uvaldo Leavitt MD at [facility] Right: Knee [employer] 02/09/2023 5521-B-40 0# / / [id number] Patella [id number] Triathlon Asymmetric X3 - [id number] Implanted:Qty: 1 on 04/01/2018 by Uvaldo Leavitt MD at [facility] Right: Knee [employer] 01/27/2023 5551-G-32 0# / / [id number] Insert Knee Sz4 11mm Triathloncondyle Stbz X3 - [id number] Implanted:Qty: 1 on 04/01/2018 by Uvaldo Leavitt MD at [facility] Right: Knee [employer] 01/22/2023 5531-G-41 1# / / [id number] Insert Knee Sz4 11mm Triathloncondyle Stbz X3 - [id number] Implanted:Qty: 1 on 09/12/2018 by Uvaldo Leavitt MD at [facility] Left: Knee [employer] 06/30/2023 5531-G-41 1# / / [id number] Cmnt Bone Simplex P 1pk - [id number] Implanted:Qty: 2 on 09/12/2018 by Uvaldo Leavitt MD at [facility] Left: Knee [employer] 11/30/2020 6191-1-00 1# / / [id number] Patella [id number] Triathlon Asymmetric X3 - [id number] Implanted:Qty: 1 on 09/12/2018 by Uvaldo Leavitt MD at [facility] Left: Knee [employer] 04/17/2023 5551-G-35 0# / / [id number] Baseplate Tib Sz4 Triathlon Pe - [id number] Implanted:Qty: 1 on 09/12/2018 by Uvaldo Leavitt MD at [facility] Left: Knee [employer] 06/21/2023 5521-B-40 0# / / [id number] Fem Lt Sz4 Triathlon Cruc Ret Co Cr - [id number] Implanted:Qty: 1 on 09/12/2018 by Uvaldo Leavitt MD at [facility] Left: Knee [employer] 05/07/2023 5510-F-40 1# / / [id number] Procedures Procedure Name Priority Date/Time Associated Diagnosis Comments NM CARDIAC MPI STRESS TEST DARLEEN 12/28/2024 12:34 PM CDT Coronary artery disease, unspecified vessel or lesion type, unspecified whether angina present, unspecified whether [place] or transplanted heart Preoperative cardiovascular examination CBC WITH AUTO DIFFERENTIAL Routine 12/11/2024 11:30 AM CDT Preop examination Chronic left shoulder pain BASIC METABOLIC PANEL Routine 12/11/2024 11:30 AM CDT Preop examination Chronic left shoulder pain EKG 12 LEAD Routine 12/11/2024 12:00 AM CDT Preop examination Chronic left shoulder pain BASIC METABOLIC PANEL STAT 11/27/2024 12:02 PM CDT HTN (hypertension) GLUCOSE METER Routine 11/25/2024 12:00 PM CDT GLUCOSE METER Routine 11/25/2024 9:23 AM CDT SCAN-CARDIAC STRIP 11/25/2024 9: 10 AM CDT WHITE BLOOD COUNT Early AM 11/25/2024 6:3 7 AM CDT CREATININE Early AM 11/25/2024 6:37 AM CDT POTASSIUM Early AM 11/25/2024 6:37 AM CDT SODIUM Early AM 11/25/2024 6:37 AM CDT GLUCOSE METER Routine 11/25/2024 6:21 AM CDT GLUCOSE METER Routine 11/25/2024 3:16 AM CDT GLUCOSE METER Routine 11/24/2024 10:36 PM CDT GLUCOSE METER Routine 11/24/2024 9:46 PM CDT GLUCOSE METER Routine 11/24/2024 5:21 PM CDT ECHO TTE COMPLETE WO CONTRAST W BUBBLE STAT 11/24/2024 4:30 PM CDT SCAN-CARDIAC STRIP 11/24/2024 3: 45 PM CDT GLUCOSE METER Routine 11/24/2024 3:44 PM CDT MR HEAD BRAIN WO STAT 11/24/2024 2:53 PM CDT LIPID PANEL DARLEEN 11/24/2024 12:40 PM CDT TROPONIN T (HS) ONE TIME Timed 11/24/2024 12:40 PM CDT BETA HYDROXYBUTYRATE IN HOUSE STAT 11/24/2024 11:36 AM CDT EKG 12 LEAD STAT 11/24/2024 11:[address] ANGIO HEAD NECK CAROTID STROKE PROTOCOL PRESTON CANDIDAT STAT 11/24/2024 11:[address] HEAD STROKE PROTOCOL WITHOUT CONTRAST STAT 11/24/2024 11:09 AM CDT HEMOGLOBIN A1C DARLEEN 11/24/2024 10:54 AM CDT CBC WITH AUTO DIFFERENTIAL STAT 11/24/2024 10:54 AM CDT HEPATIC FUNCTION PANEL STAT 10:54 AM CDT LACTATE VENOUS Today 11/24/2024 10:54 AM CDT TROPONIN T (HS) ACUTE W/2HR REFLEX STAT 11/24/2024 10:54 AM CDT BASIC METABOLIC PANEL STAT 11/24/2024 10:54 AM CDT PROTIME-INR STAT 11/24/2024 10:54 AM CDT CBC WITH AUTO DIFFERENTIAL STAT 11/24/2024 10:54 AM CDT GLUCOSE METER Routine 11/24/2024 10:51 AM CDT COLONOSCOPY 01/14/2018 2:48 PM CDT ANTI HCV Routine 12/27/2017 2:48 PM CDT Need for hepatitis C screening test from Last 3 Months or Most Recently Relevant to Health Maintenance Results * NM CARDIAC MPI STRESS TEST (12/28/2024 12:34 PM CDT) Anatomical Region Laterality Modality HEART Nuclear Medicine 12/28/2024 9:34 AM CDT Narrative 12/28/2024 3:32 PM CDT 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 Norvasc. Coreg. Cozaar. Ezetimibe (Zetia). Rosuvastatin. Meds past 24 hrs: Same as list above, except Aspirin., Patient DID take a prescribed calcium channel christophe today STRESS TEST SUMMARY Pharmacologic Pharmacologic Indications: Unable to exercise Protocol: Regadenoson(Lexiscan) Dose: 0.4 mg IV Duration (m:s): 00:15 Treadmill Activity: Adjunct low level exercise was performed Resting HR (bpm): 71 Resting BP(mmHg): 134 / 82 Position: Sitting Resting HR(bpm): 78 Resting BP(mmHg): 131 / 82 Position: Standing Peak HR(bpm): 93 Peak BP(mmHg): 149 / 81 % MPHR: 58 Double Product: [id number] Recovery HR(bpm): 75 Recovery BP(mmHg): 136 / 80 BP Response: Normal HR Response: Normal Stress Termination: COMPLETED PROTOCOL Stress Symptoms: Pharmacologic stress agent provoked a typical vasodilator response (including flushing). Meds Given: Regadenoson(Lexiscan) ECG Resting ECG: Sinus rhythm with right bundle branch block with first-degree AV block. Resting Arrhythmia: None Stress ECG: Stress ECG did not show any ST segment change. Stress ECG is negative for myocardial ischemia. Stress Arrhythmia: Occasional APCs, Rare PVCs IMAGE PROTOCOL Rest/Stress 1 Day Radiopharmaceutical Dose (mCi) Route Injection Time Injection Date Inj to Img Time (min) Administered By Rest: 99mTc Tetrofosmin 10.3 IV 0846 12/28/2024 62 DZ Stress: 99mTc Tetrofosmin 36.3 IV 1014 12/28/2024 48 DZ Post-Injection Exercise: An additional 2 minutes of exercise followed the intravenous injection Minutes to Injection(m:s): 0:40 PERFUSION RESULTS Technical Quality: Raw Data Analysis: Post-Stress Perfusion Rest Perfusion Basal Anterior: X Basal Anterior: X Basal Anteroseptal: X Basal Anteroseptal: X Basal Inferoseptal: X Basal Inferoseptal: X Basal Inferior: X Basal Inferior: X Basal Inferolateral: X Basal Inferolateral: X Basal Anterolateral: X Basal Anterolateral: X Mid Anterior: X Mid Anterior: X Mid Anteroseptal: X Mid Anteroseptal: X Mid Inferoseptal: X Mid Inferoseptal: X Mid Inferior: X Mid Inferior: X Mid Inferolateral: X Mid Inferolateral: X Mid Anterolateral: X Mid Anterolateral: X Apical Anterior: X Apical Anterior: X Apical Septal: X Apical Septal: X Apical Inferior: X Apical Inferior: X Apical Lateral: X Apical Lateral: X Melcher [place]: X Melcher [place]: X Summed Stress Score: 0 Summed Rest Score: 0 Summed Difference Score: 0 0 - Normal 2 - Moderately Reduced Uptake 4 - Absent 1 - Mildly Reduced Uptake 3 - Severely Reduced Uptake X - Not Interpretable Perfusion: Stress images demonstrate a large size perfusion defect in the basal to mid inferolateral mata with mildly impaired radiotracer uptake. The defect is fixed on resting images. No significant reversible ischemia. Findings consistent with prior inferolateral myocardial infarction without residual ischemia. FUNCTION Calculated via Gated SPECT Post Stress LV EF: 54 % EDV: 143 ml EDVI: 65 ml/m ESV: 66 ml ESVI: 30 ml/m LV Size and Function: Normal left ventricular size and systolic function with a calculated LVEF of 54%. Stage: Post-Stress Post-Stress Wall Motion Basal Anterior: X Basal Anteroseptal: X Basal Inferoseptal: X Basal Inferior: X Basal Inferolateral: X Basal Anterolateral: X Mid Anterior: X Mid Anteroseptal: X Mid Inferoseptal: X Mid Inferior: X Mid Inferolateral: X Mid Anterolateral: X Apical Anterior: X Apical Septal: X Apical Inferior: X Apical Lateral: X [place]: X 0 - Normal 1 - Hypokinetic 2 - Severely Hypokinetic 3 - Akinetic 4 - Dyskinetic 5 - Aneurysmal X - Not Interpretable LV Regional Function: Hypokinesis of the basal inferoseptal mata Arcadio Hunter MD [facility] Accredited Site (Electronically Signed) Final Date: 28 December 2024 15:32 ICD-10 Codes: Z01.810; I25.10 CC Providers: Procedure Note Arcadio Hunter MD - 12/28/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 Norvasc. Coreg. Cozaar. Ezetimibe (Zetia).Rosuvastatin. Meds past 24 hrs: Same as list above, except Aspirin., Patient DID take aprescribed calcium channel christophe today STRESS TEST SUMMARY Pharmacologic Pharmacologic Indications: Unable toexercise Protocol: Regadenoson(Lexiscan) Dose: 0.4 mg IV Duration (m:s): 00:15 Treadmill Activity: Adjunct low level exercise was performed Resting HR (bpm): 71 Resting BP(mmHg): 134 / 82 Position: Sitting Resting HR(bpm): 78 Resting BP(mmHg): 131 / 82 Position: Standing Peak HR(bpm): 93 Peak BP(mmHg): 149 / 81 % MPHR: 58 Double Product:[id number] Recovery HR(bpm): 75 Recovery BP(mmHg): 136 / 80 BP Response: Normal HR Response: Normal Stress Termination: COMPLETED PROTOCOL Stress Symptoms: Pharmacologic stress agent provoked a typicalvasodilator response (including flushing). Meds Given: Regadenoson(Lexiscan) ECG Resting ECG: Sinus rhythm with right bundle branch block withfirst-degree AV block. Resting Arrhythmia: None Stress ECG: Stress ECG did not show any ST segment change. Stress ECG isnegative for myocardial ischemia. Stress Arrhythmia: Occasional APCs, Rare PVCs IMAGE PROTOCOL Rest/Stress 1 Day Radiopharmaceutical Dose (mCi) Route Injection Time Injection Date Inj toImg Time (min) Administered By Rest: 99mTc Tetrofosmin 10.3 IV 0846 12/28/2024 62 DZ Stress: 99mTc Tetrofosmin 36.3 IV 1014 12/28/2024 48 DZ Post-Injection Exercise: An additional 2 minutes of exercise followed theintravenous injection Minutes to Injection(m:s): 0:40 PERFUSION RESULTS Technical Quality: Raw Data Analysis: Post-Stress Perfusion Rest Perfusion Basal Anterior: X Basal Anterior: X Basal Anteroseptal: X Basal Anteroseptal: X Basal Inferoseptal: X Basal Inferoseptal: X Basal Inferior: X Basal Inferior: X Basal Inferolateral: X Basal Inferolateral: X Basal Anterolateral: X Basal Anterolateral: X Mid Anterior: X Mid Anterior: X Mid Anteroseptal: X Mid Anteroseptal: X Mid Inferoseptal: X Mid Inferoseptal: X Mid Inferior: X Mid Inferior: X Mid Inferolateral: X Mid Inferolateral: X Mid Anterolateral: X Mid Anterolateral: X Apical Anterior: X Apical Anterior: X Apical Septal: X Apical Septal: X Apical Inferior: X Apical Inferior: X Apical Lateral: X Apical Lateral: X [place]cher [place]: X [place]cher [place]: X Summed Stress Score: 0 Summed Rest Score: 0 Summed Difference Score: 0 0 - Normal 2 - ModeratelyReduced Uptake 4 - Absent 1 - Mildly Reduced Uptake 3 - Severely Reduced UptakeX - Not Interpretable Perfusion: Stress images demonstrate a large size perfusion defect in thebasal to mid inferolateral mata with mildly impaired radiotracer uptake. The defect is fixed on resting images. Nosignificant reversible ischemia. Findings consistent with prior inferolateral myocardial infarction without residualischemia. FUNCTION Calculated via Gated SPECT Post Stress LV EF: 54 % EDV: 143 ml EDVI: 65 ml/m ESV: 66 ml ESVI: 30 ml/m LV Size and Function: Normal left ventricular size and systolic functionwith a calculated LVEF of 54%. Stage: Post-Stress Post-Stress Wall Motion Basal Anterior: X Basal Anteroseptal: X Basal Inferoseptal: X Basal Inferior: X Basal Inferolateral: X Basal Anterolateral: X Mid Anterior: X Mid Anteroseptal: X Mid Inferoseptal: X Mid Inferior: X Mid Inferolateral: X Mid Anterolateral: X Apical Anterior: X Apical Septal: X Apical Inferior: X Apical Lateral: X [place]: X 0 - Normal 1 - Hypokinetic 2 - Severely Hypokinetic 3 - Akinetic 4 - Dyskinetic 5 - Aneurysmal X - Not Interpretable LV Regional Function: Hypokinesis of the basal inferoseptal mata Arcadio Hunter MD [facility] Accredited Site (Electronically Signed) Final Date: 28 December 2024 15:32 ICD-10 Codes: Z01.810; I25.10 CC [facility]iders: [facility] Result * (ABNORMAL) CBC AND DIFFERENTIAL (12/11/2024 11:30 AM CDT) WHITE BLOOD CELL COUNT 9.2 3.8 - 10.8 Thousand/u L [facility] RED BLOOD CELL COUNT 4.02(L) 4.20 - 5.80 Million/uL [facility] HEMOGLOBIN 12.6(L) 13.2 - 17.1 g/dL [facility] HEMATOCRIT 38.0(L) 38.5 - 50.0 % [facility] MCV 94.5 80.0 - 100.0 fL [facility] MCH 31.3 27.0 - 33.0 pg [facility] MCHC 33.2 32.0 - 36.0 g/dL [facility] Comment: For adults, a slight decrease in the calculated MCHC value (in the range of 30 to 32 g/dL) is most likely not clinically significant; however, it should be interpreted with caution in correlation with other red cell parameters and the patient's clinical condition. RDW 13.5 11.0 - 15.0 % [facility] PLATELET COUNT 212 140 - 400 Thousand/u L [facility] MPV 10.6 7.5 - 12.5 fL [facility] ABSOLUTE NEUTROPHILS 5,557 1,500 - 7,800 cells/uL [facility] ABSOLUTE LYMPHOCYTES 2,383 850 - 3,900 cells/uL [facility] ABSOLUTE MONOCYTES 589 200 - 950 cells/uL [facility] ABSOLUTE EOSINOPHILS 524(H) 15 - 500 cells/uL [facility] ABSOLUTE BASOPHILS 147 0 - 200 cells/uL [facility] NEUTROPHILS 60.4 % [facility] LYMPHOCYTES 25.9 % [facility] MONOCYTES 6.4 % [facility] EOSINOPHILS 5.7 % [facility] BASOPHILS 1.6 % [facility] Blood BLOOD SPECIMEN / Unknown 12/11/2024 11:30 AM CDT 12/11/2024 11:33 AM CDT us Roberto Leroy MD HEMATOLOGY Final Resul t [facility] [address] [place] [address], [facility] [address] [place] [address] * (ABNORMAL) BASIC METABOLIC PANEL (12/11/2024 11:30 AM CDT) Only the most recent of3 resultswithin the time period is included. [facility] GLUCOSE 98 65 - 99 mg/dL [facility] Comment: Fasting reference interval UREA NITROGEN (BUN) 17 7 - 25 mg/dL [facility] CREATININE 1.52(H) 0.70 - 1.35 mg/dL [facility] EGFR 52(L) > OR = 60 mL/min/1.7 3m2 [facility] BUN/CREATININE RATIO 11 6 - 22 (calc) [facility] SODIUM 138 135 - 146 mmol/L [facility] POTASSIUM 3.8 3.5 - 5.3 mmol/L [facility] CHLORIDE 104 98 - 110 mmol/L [facility] CARBON DIOXIDE 24 20 - 32 mmol/L [facility] ELECTROLYTE BALANCE 10 7 - 17 mmol/L (calc) [facility] CALCIUM 9.2 8.6 - 10.3 mg/dL [facility] Blood BLOOD SPECIMEN / Unknown 12/11/2024 11:30 AM CDT 12/11/2024 11:33 AM CDT Roberto Leroy MD CHEMISTRY Final Resul t [place] [address] [id number], [facility] [address] [place] [id number] * EKG 12 LEAD (12/11/2024 12:00 AM CDT) Only the most recent of2 resultswithin the time period is included. Roberto Leroy MD EKG ORD Final Resul t * (ABNORMAL) GLUCOSE METER (11/25/2024 12:00 PM CDT) Only the most recent of9 resultswithin the time period is included. GLUCOSE METER 123(H) 65 - 100 mg/dL 11/25/2024 12:01 PM CDT [facility] Blood BLOOD SPECIMEN / Unknown 11/25/2024 12:00 PM CDT 11/25/2024 12:01 PM CDT [facility] Hospitalist CHEMISTRY Final Result Performing Organization Address [facility] Co de Phone Number [facility] [address] [place] [address] * SCAN-CARDIAC STRIP (11/25/2024 9:10 AM CDT) Scanner OTHER Final Result * WHITE BLOOD COUNT (11/25/2024 6:37 AM CDT) WHITE BLOOD COUNT 10.2 4.5 - 11.0 thou/cu mm 11/25/2024 6:45 AM CDT [facility] Blood BLOOD SPECIMEN / Unknown Butterfly / Unknown 11/25/2024 6:37 AM CDT 11/25/2024 6:41 AM CDT us Shahzad Hudson INDUSTRIAL ILLUMINATING ENGINEER HEMATOLOGY Fin al Result Performing Organization Address City/[facility]/ZIP Co de Phone Number [facility] [address] [place] [address] * SODIUM (11/25/2024 6:37 AM CDT) SODIUM 140 136 - 145 mmol/L 11/25/2024 7:11 AM CDT [facility] Blood BLOOD SPECIMEN / Unknown Butterfly / Unknown 11/25/2024 6:37 AM CDT 11/25/2024 6:41 AM CDT us Shahzad Hudson INDUSTRIAL ILLUMINATING ENGINEER CHEMISTRY Fin al Result Performing Organization Address City/[facility] Co de Phone Number [facility] [address] [place], [place] [id number] * POTASSIUM (11/25/2024 6:37 AM CDT) POTASSIUM 3.6 3.5 - 5.1 mmol/L 11/25/2024 7:11 AM CDT [facility] Blood BLOOD SPECIMEN / Unknown Butterfly / Unknown 11/25/2024 6:37 AM CDT 11/25/2024 6:41 AM CDT Shahzad Hudson INDUSTRIAL ILLUMINATING ENGINEER CHEMISTRY Fin al Result Performing Organization Address City/[facility] Co de Phone Number [facility] [address] [place] [address] * (ABNORMAL) CREATININE (11/25/2024 6:37 AM CDT) eGFR 41(L) >90 mL/min/1.7 3m2 11/25/2024 7:11 AM CDT [facility] Comment:As of 2021, eG FR is calculated by the CKD-EPI creatinine equation without race adjustment. eGFR can be influenced by muscle mass, exercise, and diet. The reported eGFR is an estimation only and is only applicable if the renal function is stable. CREATININE 1.86(H) 0.70 - 1.20 mg/dL 11/25/2024 7:11 AM CDT [facility] Blood BLOOD SPECIMEN / Unknown Butterfly / Unknown 11/25/2024 6:37 AM CDT 11/25/2024 6:41 AM CDT Shahzad Hudson INDUSTRIAL ILLUMINATING ENGINEER CHEMISTRY Fin al Result Performing Organization Address [facility] Co de Phone Number [facility] [address] [place] [address] * ECHO TTE COMPLETE WO CONTRAST W BUBBLE (11/24/2024 4:30 PM CDT) AORTIC VALVE MEAN PG 4 mmHg EJECTION FRACTION 61 % PEAK TR VELOCITY 1.7 m/s LVEDD 4.6 cm EJECTION FRACTION 60 - 65% Anatomical Region Laterality Modality Other 11/24/2024 3:40 PM CDT Narrative 11/24/2024 4:44 PM CDT ECHOCARDIOGRAM LUIS EDUARDO GENTILE : 1965 59 years Study Date: 11/24/2024 3:40:58 PM Gender: M BP: 128/61 mmHg Height: 173.00 cm BSA: 2.15 m Weight: 102.00 kg Tech: CANDACE Referring MD: SHAHZAD HUDSON Site: [facility] Reading Location: Mobile IP Patient Location: Inpatient. Procedure: 2D w/ Bubbles, Color Doppler and Spectral Doppler. Indication for study: TIA Cardiac Rhythm: Normal sinus.Study quality: Good. Final Impressions: 1. Normal LV size, moderately increased wall thickness, normal global systolic function with an estimated EF of 60 - 65%. 2. Right ventricular cavity size is normal, global systolic RV function is normal. 3. No significant valve disease detected. 4. Severely enlarged left atrium. 5. No shunt seen across the interatrial septum. Comparison Compared to prior exam of 12/04/2020, there has been no significant change. Chamber Sizes and Function Normal left ventricular size, moderately increased wall thickness, normal global systolic function with an estimated EF of 60 - 65%. No resting regional wall motion abnormality visualized. Left atrial size is severely enlarged. Right ventricular cavity size is normal, global systolic RV function is normal. The right atrium is mildly enlarged. Right atrial area is 22 cm . The pulmonary artery is of normal size and origin. The sinus of Valsalva is normal sized. The ascending aorta is normal sized. Valves, RV Pressures and Diastolic Function The aortic valve is trileaflet, no stenosis and mild regurgitation. The mitral valve is normal in structure, mild mitral regurgitation. Mild mitral annular calcification is present. Indeterminate pattern of LV diastolic filling. The tricuspid valve is normal in structure, regurgitation is not evident tricuspid regurgitation. The tricuspid regurgitant velocity is 1.7 m/s, the estimated right ventricular systolic pressure is 11 mmHg plus right atrial pressure. The pulmonic valve is normal. Trace pulmonary regurgitation. TTE images do not appear adequate for transcather intervention with patient supine. Masses, Effusion, Shunts There is no pericardial effusion. The inferior vena cava is normal sized, respiratory size variation greater than 50%. No left to right shunting was detected by limited color flow Doppler interrogation of the interatrial septum. MEASUREMENTS AND CALCULATIONS 2-D Measurements and LV Function: LVID (d) 4.6 cm LV FS% (2D) 32 % LVID (s) 3.1 cm LVOT diameter 2.2 cm IVS (d) 1.3 cm HR 61 bpm LVPW (d) 1.5 cm LA Vol index 61 ml/m2 Ao Sinus 3.9 cm RA area 22 cm Ao Sinus ULN 4.1 cm * RV Basal Diam 3.9 cm Asc Ao 3.7 cm RV Mid Diam 2.7 cm Asc Ao ULN 4.1 cm * * Input BSA outside of range, reported values correspond to BSA = 2.1 Diastology: Mitral Tissue Doppler E Peak 0.9 m/s e', Septum 0.07 m/s A Peak 1.1 m/s e', Lateral 0.07 m/s E/A 0.8 E/e' Average 13.62 DT 214 msec Aortic Valve: Vmax 1.3 m/s SADE (V) 3.52 cm VTI 0.33 m SADE (I) 3.37 cm LVOT V max 1.2 m/s Max PG 7 mmHg LVOT VTI 0.29 m Mean PG 4 mmHg SV 111 ml Dim Index 0.89 SV index 52 ml/m CO 6.8 l/min CI 3.2 l/min/m Mitral Valve: MVA 3.5 cm MV P 1/2 62 msec Tricuspid Valve and estimated PA pressures: TR Vmax 1.7 m/s TAPSE 3.0 cm TR maxG 11 mmHg . This study was interpreted by an [facility] accredited facility. Final Procedure Note Long Esquivel MD - 11/24/2024 ECHOCARDIOGRAM LUIS EDUARDO GENTILE : 1965 59 years Study Date: 11/24/2024 3:40:58 PM Gender: M BP: 128/61 mmHg Height: 173.00 cm BSA: 2.15 m Weight: 102.00 kg Tech: CANDACE Referring MD: SHAHZAD HUDSON Site: [facility]) Reading Location: Mobile Patient Location: Inpatient. Procedure: 2D w/ Bubbles, Color Doppler and Spectral Doppler. Indication for study: TIA Cardiac Rhythm: Normal sinus.Study quality: Good. Final Impressions: 1. Normal LV size, moderately increased wall thickness, normal globalsystolic function with an estimated EF of 60 - 65%. 2. Right ventricular cavity size is normal, global systolic RV functionis normal. 3. No significant valve disease detected. 4. Severely enlarged left atrium. 5. No shunt seen across the interatrial septum. Comparison Compared to prior exam of 12/04/2020, there has been no significantchange. Chamber Sizes and Function Normal left ventricular size, moderately increased wall thickness, normalglobal systolic function with an estimated EF of 60 - 65%. No restingregional wall motion abnormality visualized. Left atrial size is severelyenlarged. Right ventricular cavity size is normal, global systolic RVfunction is normal. The right atrium is mildly enlarged. Right atrial areais 22 cm . The pulmonary artery is of normal size and origin. The sinusof Valsalva is normal sized. The ascending aorta is normal sized. Valves, RV Pressures and Diastolic Function The aortic valve is trileaflet, no stenosis and mild regurgitation. Themitral valve is normal in structure, mild mitral regurgitation. Mildmitral annular calcification is present. Indeterminate pattern of LVdiastolic filling. The tricuspid valve is normal in structure,regurgitation is not evident tricuspid regurgitation. The tricuspidregurgitant velocity is 1.7 m/s, the estimated right ventricular systolicpressure is 11 mmHg plus right atrial pressure. The pulmonic valve isnormal. Trace pulmonary regurgitation. TTE images do not appear adequatefor transcather intervention with patient supine. Masses, Effusion, Shunts There is no pericardial effusion. The inferior vena cava is normal sized,respiratory size variation greater than 50%. No left to right shunting wasdetected by limited color flow Doppler interrogation of the interatrialseptum. MEASUREMENTS AND CALCULATIONS 2-D Measurements and LV Function: LVID (d) 4.6 cm LV FS% (2D) 32% LVID (s) 3.1 cm LVOT diameter2.2 cm IVS (d) 1.3 cm HR 61bpm LVPW (d) 1.5 cm LA Vol index 61ml/m2 Ao Sinus 3.9 cm RA area 22cm Ao Sinus ULN 4.1 cm * RV Basal Diam3.9 cm Asc Ao 3.7 cm RV Mid Diam2.7 cm Asc Ao ULN 4.1 cm * * Input BSA outside of range, reported values correspond to BSA = 2.1 Diastology: Mitral Tissue Doppler E Peak 0.9 m/s e', Septum 0.07 m/s A Peak 1.1 m/s e', Lateral 0.07 m/s E/A 0.8 E/e' Average 13.62 DT 214 msec Aortic Valve: Vmax 1.3 m/s SADE (V) 3.52 cm VTI 0.33 m SADE (I) 3.37 cm LVOT V max 1.2 m/s Max PG 7 mmHg LVOT VTI 0.29 m Mean PG 4 mmHg SV 111 ml Dim Index 0.89 SV index 52 ml/m CO 6.8 l/min CI 3.2 l/min/m Mitral Valve: MVA 3.5 cm MV P 1/2 62 msec Tricuspid Valve and estimated PA pressures: TR Vmax 1.7 m/s TAPSE 3.0 cm TR maxG 11 mmHg . This study was interpreted by an [facility] accredited facility. Final us Shahzad Hudson NP ECHO ORD Fin al Result * SCAN-CARDIAC STRIP (11/24/2024 3:45 PM CDT) us Scanner OTHER Final Result * MR HEAD BRAIN WO (11/24/2024 2:53 PM CDT) Anatomical Region Laterality Modality BRAIN, HEAD Magnetic Resonan ce 11/24/2024 3:01 PM CDT Narrative 11/24/2024 3:01 PM CDT For Patients: As a result of the 21st Century Cures Act, medical imaging exams and procedure reports are released immediately into your electronic medical record. You may view this report before your referring provider. If you have questions, please contact your health care provider. Indication: Transient ischemic attack. Technique: Multiplanar, multisequence MRI of the brain was performed without intravenous contrast. Comparison: CT head 11/24/2024. Findings: The corpus callosum, pituitary gland clivus appear intact. Mild degenerative change visualized upper cervical spine. There is no restricted diffusion. The ventricles are proportionate to the cerebral sulci. The 4th ventricle appears midline. The basal cisterns appear patent. No abnormal extra-axial fluid collection identified. Mild parenchymal volume loss. Moderate scattered T2 FLAIR hyperintense foci within the subcortical and periventricular white matter, favored to represent chronic ischemic microvascular disease. Numerous small chronic lacunar infarcts involving the left greater than right basal ganglia and dexter radiata. Scattered foci of hemosiderin deposition throughout the afgw-qjrfohf-qdoa-right cerebrum as well as bilaterally within the cerebellum. There is no intracranial mass, abnormal mass-effect or midline shift identified. Major intracranial vascular flow voids appear grossly intact. Both globes are preserved. Moderate paranasal sinus mucosal disease. Small right mastoid effusion. Impression: 1. No acute/subacute infarct. 2. Moderate chronic ischemic microvascular disease. 3. Numerous chronic lacunar infarcts hqdl-sbancuv-sunm-right basal ganglia and dexter radiata. 4. Scattered foci of chronic microhemorrhages involving the bisk-cldwsic-ccun-right cerebrum and bilateral cerebellum. Findings can be seen as a result of chronic hypertensive or amyloid microangiopathy. Dictated by aScha Hernandez MD @ 11/24/2024 3:01:51 PM (Electronically Signed) Procedure Note Sacha Hernandez DO - 11/24/2024 For Patients: As a result of the Century Cures Act, medical imagingexams and procedure reports are released immediately into your electronicmedical record. You may view this report before your referring provider.If you have questions, please contact your health care provider. Indication: Transient ischemic attack. Technique: Multiplanar, multisequence MRI of the brain was performed withoutintravenous contrast. Comparison: CT head 11/24/2024. Findings: The corpus callosum, pituitary gland clivus appear intact. Milddegenerative change visualized upper cervical spine. There is no restricted diffusion. The ventricles are proportionate to the cerebral sulci. The 4th ventricleappears midline. The basal cisterns appear patent. No abnormal extra-axialfluid collection identified. Mild parenchymal volume loss. Moderate scattered T2 FLAIR hyperintensefoci within the subcortical and periventricular white matter, favored torepresent chronic ischemic microvascular disease. Numerous small chroniclacunar infarcts involving the left greater than right basal ganglia andcorona radiata. Scattered foci of hemosiderin deposition throughout lpoecei-sehalvt-qwlu-right cerebrum as well as bilaterally within thecerebellum. There is no intracranial mass, abnormal mass-effect or midline shiftidentified. Major intracranial vascular flow voids appear grossly intact. Both globesare preserved. Moderate paranasal sinus mucosal disease. Small rightmastoid effusion. Impression: 1. No acute/subacute infarct. 2. Moderate chronic ischemic microvascular disease. 3. Numerous chronic lacunar infarcts afvm-cadtlgp-hztn-right basal gangliaand dexter radiata. 4. Scattered foci of chronic microhemorrhages involving rjxzjit-lhimazr-gvxa-right cerebrum and bilateral cerebellum. Findings can beseen as a result of chronic hypertensive or amyloid microangiopathy. Dictated by Sacha Hernandez MD @ 11/24/2024 3:01:51 PM (Electronically Signed) Shahzad Hudson NP MR Fin al Result * (ABNORMAL) TROPONIN T (HS) ONE TIME (11/24/2024 12:40 PM CDT) [facility] TROPONIN T HS 29(H) 6-15 ng/L ng/L 11/24/2024 1:01 PM CDT [facility] Blood BLOOD SPECIMEN / Unknown Venipuncture / Unknown 11/24/2024 12:40 PM CDT 11/24/2024 12:43 PM CDT Saul Crow MD CHEMISTRY Radha l Result [facility] [address] [place] [address] * (ABNORMAL) Lipid Panel (11/24/2024 12:40 PM CDT) Pathologist [facility] CHOLESTEROL,TOTAL 121 100 - 199 mg/dL 11/25/2024 2:31 PM CDT [facility] Comment: Cholesterol, Total Reference Ranges Desirable <200 mg/dL Borderline 200-239 mg/dL High >=240 mg/dL TRIGLYCERIDES 90 <150 mg/dL 11/25/2024 2:31 PM CDT [facility] HDL CHOLESTEROL 25(L) >40 mg/dL 2:31 PM CDT [facility] NON-HDL CHOLESTEROL 96 <145 mg/dl 11/25/2024 2:31 PM CDT [facility] CHOL/HDL RATIO 4.84(H) <4.50 11/25/2024 2:31 PM CDT [facility] LDL CHOLESTEROL 78 <=130 mg/dL 11/25/2024 2:31 PM CDT [facility] VLDL CHOLESTEROL 18 <=30 mg/dL 11/25/2024 2:31 PM CDT [facility] PROVIDER ORDERED STATUS RANDOM 11/25/2024 2:31 PM CDT [facility] Blood BLOOD SPECIMEN / Unknown Venipuncture / Unknown 11/24/2024 12:40 PM CDT 11/24/2024 12:43 PM CDT Shahzad Hudson INDUSTRIAL ILLUMINATING ENGINEER CHEMISTRY Fin al Result [facility] [address] [place] [id number], * BETA HYDROXYBUTYRATE IN HOUSE (11/24/2024 11:36 AM CDT) BETA HYDROXYBUTYRATE <0.6 <0.6 mmol/L 11/24/2024 11:43 AM CDT [facility] Blood BLOOD SPECIMEN / Unknown Venipuncture / Unknown 11/24/2024 11:36 AM CDT 11/24/2024 11:39 AM CDT Saul Crow MD SEND OUTS Radha l Result [facility] [address] [place] [address] * CT ANGIO HEAD NECK CAROTID STROKE PROTOCOL PRESTON CANDIDAT (11/24/2024 11:11 AM CDT) Anatomical Region Laterality Modality BRAIN, NECK Computed Tomogra phy 11/24/2024 11:3 1 AM CDT Addenda Addendum by Dana Resendiz MD on 11/24/2024 11:42 AM CDT For Patients: As a result of the Cures Act, medical imaging exams and procedure reports are released immediately into your electronic medical record. You may view this report before your referring provider. If you have questions, please contact your health care provider. DATE: 11/24/2024 CLINICAL HISTORY: Patient with focal neurological deficits. TECHNIQUE: Standard helical CT image acquisition through the intracranial circulation following intravenous administration of contrast material with bolus tracking. 2D and 3D MIP images for post-processing were performed and interpreted on an independent workstation and 3D images were permanently archived. COMPARISON: CT same day. FINDINGS: There is no cerebral aneurysm or large vessel occlusion. There is mild intracranial atherosclerosis in the carotid siphons, vertebral, middle and posterior cerebral arteries bilaterally. The right anterior cerebral artery and its branches are normal. The left anterior cerebral artery and its branches are normal. The vertebral arteries are codominant. The basilar artery is patent and appears normal. The visualized venous structures are patent. IMPRESSION: 1. No cerebral aneurysm or large vessel occlusion. 2. Mild intracranial atherosclerosis in the carotid siphons, vertebral, middle and posterior cerebral arteries bilaterally. Please note that all CT scans at this facility use dose modulation, iterative reconstruction, and/or weight-based dosing when appropriate to reduce radiation dose to as low as reasonably achievable. Dictated by Dana Resendiz MD @ 11/24/2024 11:42:12 AM (Electronically Signed) Impressions 11/24/2024 11:39 AM CDT 1. Mild (less than 50%) stenosis at the origin of the right internal carotid artery by NASCET criteria. This is caused by calcified and noncalcified plaque with a greater than 2mm residual lumen. 2. Mild (less than 50%) stenosis at the origin of the left internal carotid artery by NASCET criteria. This is caused by noncalcified plaque with a greater than 2mm residual lumen. Please note that all CT scans at this facility use dose modulation, iterative reconstruction, and/or weight-based dosing when appropriate to reduce radiation dose to as low as reasonably achievable. Dictated by Dana Resendiz MD @ 11/24/2024 11:39:15 AM (Electronically Signed) Narrative 11/24/2024 11:39 AM CDT For Patients: As a result of the Cures Act, medical imaging exams and procedure reports are released immediately into your electronic medical record. You may view this report before your referring provider. If you have questions, please contact your health care provider. DATE: 11/24/2024 CLINICAL HISTORY: Patient with focal neurological deficits. TECHNIQUE: Standard helical CT image acquisition of the neck up to the skull base after bolus intravenous contrast enhancement. 2D and 3D MIP images for post-processing were performed and interpreted on an independent workstation and 3D images were permanently archived. COMPARISON: None. FINDINGS: The origins of the great vessels from the aortic arch are patent. The origin of the right vertebral artery is patent. The origin of the left vertebral artery is patent. The common carotid arteries are patent. There is a mild (less than 50%) stenosis at the origin of the right internal carotid artery by NASCET criteria. This is caused by calcified and noncalcified plaque with a greater than 2mm residual lumen. There is a mild (less than 50%) stenosis at the origin of the left internal carotid artery by NASCET criteria. This is caused by noncalcified plaque with a greater than 2mm residual lumen. The rest of the cervical segments of the internal carotid arteries are patent up to the skull base. The vertebral arteries are codominant. The cervical segments of the vertebral arteries are patent up to the skull base. The visualized lung apices are unremarkable. The thyroid gland is unremarkable. The soft tissues of the neck are unremarkable. There are degenerative changes in the cervical spine. Procedure Note Dana Resendiz MD - 11/24/2024 For Patients: As a result of the Cures Act, medical imagingexams and procedure reports are released immediately into your electronicmedical record. You may view this report before your referring provider.If you have questions, please contact your health care provider. DATE: 11/24/2024 CLINICAL HISTORY: Patient with focal neurological deficits. TECHNIQUE: Standard helical CT image acquisition of the neck up to the skull baseafter bolus intravenous contrast enhancement. 2D and 3D MIP images forpost-processing were performed and interpreted on an independentworkstation and 3D images were permanently archived. COMPARISON: None. FINDINGS: The origins of the great vessels from the aortic arch are patent. Theorigin of the right vertebral artery is patent. The origin of the leftvertebral artery is patent. The common carotid arteries are patent. There is a mild (less than 50%) stenosis at the origin of the rightinternal carotid artery by NASCET criteria. This is caused by calcifiedand noncalcified plaque with a greater than 2mm residual lumen. There is a mild (less than 50%) stenosis at the origin of the leftinternal carotid artery by NASCET criteria. This is caused by noncalcifiedplaque with a greater than 2mm residual lumen. The rest of the cervical segments of the internal carotid arteries arepatent up to the skull base. The vertebral arteries are codominant. The cervical segments of thevertebral arteries are patent up to the skull base. The visualized lung apices are unremarkable. The thyroid gland is unremarkable. The soft tissues of the neck are unremarkable. There are degenerative changes in the cervical spine. IMPRESSION: 1. Mild (less than 50%) stenosis at the origin of the right internalcarotid artery by NASCET criteria. This is caused by calcified andnoncalcified plaque with a greater than 2mm residual lumen. 2. Mild (less than 50%) stenosis at the origin of the left internalcarotid artery by NASCET criteria. This is caused by noncalcified plaquewith a greater than 2mm residual lumen. Please note that all CT scans at this facility use dose modulation,iterative reconstruction, and/or weight-based dosing when appropriate toreduce radiation dose to as low as reasonably achievable. Dictated by Dana Resendiz MD @ 11/24/2024 11:39:15 AM (Electronically Signed) Saul Crow MD CT Edit ed Result - Final * CT HEAD STROKE PROTOCOL WITHOUT CONTRAST Thrombolytic Candidate (11/24/2024 11:09 AM CDT) Anatomical Region Laterality Modality BRAIN Computed Tomogra phy 11/24/2024 11:2 1 AM CDT Impressions 11/24/2024 11:21 AM CDT 1. No intracranial bleed or mass effect. 2. Multiple old lacunar infarcts within the bilateral basal ganglia and dexter radiata. Although old, several of these are new compared to the 2020 exam. 3. Cerebral atrophy with nonspecific white matter disease. Results called to Dr. Hdz at 1119 on 11/24/2024 Please note that all CT scans at this facility use dose modulation, iterative reconstruction, and/or weight-based dosing when appropriate to reduce radiation dose to as low as reasonably achievable. Dictated by Jayjay Stoner MD @ 11/24/2024 11:21:55 AM (Electronically Signed) Narrative 11/24/2024 11:21 AM CDT For Patients: As a result of the Cures Act, medical imaging exams and procedure reports are released immediately into your electronic medical record. You may view this report before your referring provider. If you have questions, please contact your health care provider. INDICATION: Neurologic dysfunction TECHNIQUE: CT head without contrast. COMPARISON: Head CT 08/05/2020 FINDINGS: CSF spaces: Within normal limits for age. Brain parenchyma: No intracranial bleed or mass effect. Diffuse cerebral atrophy. Low-density within the deep white matter. Old bilateral dexter radiata and basal ganglia lacunar infarcts. Note that the inferior aspect of the cerebellum is not entirely included on this examination. Skull base and calvarium: Diffuse mucosal thickening paranasal sinuses. The visualized orbits are grossly unremarkable. No skull fractures. Procedure Note Jayjay Stoner MD - 11/24/2024 For Patients: As a result of the Cures Act, medical imagingexams and procedure reports are released immediately into your electronicmedical record. You may view this report before your referring provider.If you have questions, please contact your health care provider. INDICATION: Neurologic dysfunction TECHNIQUE: CT head without contrast. COMPARISON: Head CT 08/05/2020 FINDINGS: CSF spaces: Within normal limits for age. Brain parenchyma: No intracranial bleed or mass effect. Diffuse cerebralatrophy. Low-density within the deep white matter. Old bilateral coronaradiata and basal ganglia lacunar infarcts. Note that the inferior aspectof the cerebellum is not entirely included on this examination. Skull base and calvarium: Diffuse mucosal thickening paranasal sinuses.The visualized orbits are grossly unremarkable. No skull fractures. IMPRESSION: 1. No intracranial bleed or mass effect. 2. Multiple old lacunar infarcts within the bilateral basal ganglia andcorona radiata. Although old, several of these are new compared to [id number] exam. 3. Cerebral atrophy with nonspecific white matter disease. Results called to Dr. Hdz at 1119 on 11/24/2024 Please note that all CT scans at this facility use dose modulation,iterative reconstruction, and/or weight-based dosing when appropriate toreduce radiation dose to as low as reasonably achievable. Dictated by Jayjay Stoner MD @ 11/24/2024 11:21:55 AM (Electronically Signed) us Saul Crow MD CT Radha l Result * (ABNORMAL) TROPONIN T (HS) ACUTE W/2HR REFLEX (11/24/2024 10:54 AM CDT) TROPONIN T HS 34(H) 6-15 ng/L ng/L 11/24/2024 11:23 AM T [facility] Blood BLOOD SPECIMEN / Unknown IV Start / Unknown 11/24/2024 10:54 AM CDT 11/24/2024 10:[address] [facility] - 11/24/2024 11:23 AM CDT hs-cTnT (Elecsys Troponin T Gen 5) concentration (s) above the sex-specific 99th percentile (16 ng/L or greater for males or 11 ng/L or greater for females) are indicative of myocardial injury. If initial hs-cTnT <=100 ng/L at presentation, a 0h/2h ABSOLUTE (ng/L) delta change (rising or falling) of >=10 ng/L suggests a significant change, whereas a 0h/2h delta change <=3 ng/L suggests no significant change. If initial hs-cTnT >100 ng/L at presentation, a 0h/2h/ RELATIVE (percent, %) delta change of 20% is suggested to distinguish patients with acute vs. chronic myocardial injury. There are multiple etiologies that can cause hs-cTnT increases above the 99th percentile (myocardial injury) other than acute myocardial infarction. Clinical context and careful clinical evaluation are critical for diagnosis and risk-stratification. The diagnosis of acute myocardial infarction requires a rising and/or falling pattern in hs-cTnT concentrations with at least one value above the sex-specific 99th percentile PLUS at least one of the following clinical criteria: ischemic symptoms, new or presumed new significant ST-T wave changes or new LBBB, development of pathological Q waves, imaging evidence of new loss of viable myocardium or new regional wall motion abnormality, or identification of intracoronary atherothrombosis or an acute angiographic culprit on coronary angiography. In appropriate low-risk patients with a non-ischemic electrocardiogram without active chest pain with a symptom onset >3-hours without recurrence, a single initial hs-cTnT<6 ng/L identifies patient with a very low risk in emergency department patient population. Saul Crow MD CHEMISTRY Radha l Result [facility] [address] [place] [address] * (ABNORMAL) CBC WITH AUTO DIFFERENTIAL (11/24/2024 10:54 AM [facility] WHITE BLOOD COUNT 10.9 4.5 - 11.0 thou/cu mm 11/24/2024 11:04 AM [facility] RED BLOOD COUNT 3.32(L) 4.30 - 5.90 mil/cu mm 11/24/2024 11:04 AM [facility] HEMOGLOBIN 10.3(L) 13.5 - 17.5 g/dL 11/24/2024 11:04 AM [facility] HEMATOCRIT 31.6(L) 37.0 - 53.0 % 11/24/2024 11:04 AM [facility] MCV 95 80 - 100 fL 11/24/2024 11:04 AM [facility] MCH 31.0 26.0 - 34.0 pg 11/24/2024 11:04 AM [facility] MCHC 32.6 32.0 - 36.0 g/dL 11/24/2024 11:04 AM [facility] RDW 13.2 11.5 - 15.5 % 11/24/2024 11:04 AM [facility] PLATELET COUNT 227 140 - 440 thou/cu mm 11/24/2024 11:04 AM [facility] MPV 10.0 6.5 - 11.0 fL 11/24/2024 11:04 AM [facility] % NEUT 76.0 % 11/24/2024 11:04 AM [facility] % LYMPH 15.6 % 11/24/2024 11:04 AM [facility] % MONO 4.4 % 11/24/2024 11:04 AM [facility] % EOS 3.5 % 11/24/2024 11:04 AM [facility] % BASO 0.5 % 11/24/2024 11:04 AM [facility] ABSOLUTE NEUTROPHILS 8.3(H) 1.7 - 7.0 thou/cu mm 11/24/2024 11:04 AM [facility] ABSOLUTE LYMPHOCYTES 1.7 0.9 - 2.9 thou/cu mm 11/24/2024 11:04 AM [facility] ABSOLUTE MONOCYTES 0.5 <0.9 thou/cu mm 11/24/2024 11:04 AM [facility] ABSOLUTE EOSINOPHILS 0.4 <0.5 thou/cu mm 11/24/2024 11:04 AM [facility] ABSOLUTE BASOPHILS 0.1 <0.3 thou/cu mm 11/24/2024 11:04 AM [facility] Blood BLOOD SPECIMEN / Unknown IV Start / Unknown 11/24/2024 10:54 AM CDT 11/24/2024 10:59 AM T us Saul Crow MD HEMATOLOGY Radha l Result [facility] [address] [place] [address] * Hemoglobin A1C Screening (11/24/2024 10:54 AM CDT) HEMOGLOBIN A1C SCREENING 5.3 <=6.4 % 11/24/2024 3:37 PM CDT [facility] Blood BLOOD SPECIMEN / Unknown IV Start / Unknown 11/24/2024 10:54 AM CDT 11/24/2024 10:59 AM CDT Narrative [facility] - 11/24/2024 3:37 PM CDT (<5.7%) Normal (5.7% to 6.4%) Indicates prediabetes (>=6.5%) Confirms diabetes Falsely low levels may be seen with: Recent Transfusion, Recent Significant Blood Loss, Hemolytic Diseases, or Falsely elevated levels may be seen with: Untreated Anemias, Splenectomy Shahzad Hudson NP CHEMISTRY Fin al Result Performing Organization Address City/[facility]/ZIP Co de Phone Number [facility] [address] [place] [address] * LACTATE VENOUS (11/24/2024 10:54 AM CDT) LACTATE,VENOUS 0.8 0.5 - 2.0 mmol/L 11/24/2024 11:20 AM CDT [facility] Blood BLOOD SPECIMEN / Unknown IV Start / Unknown 11/24/2024 10:54 AM CDT 11/24/2024 10:59 AM CDT Saul Crow MD CHEMISTRY Radha l Result [facility] [address] [place] [address] * (ABNORMAL) PROTIME- INR (11/24/2024 10:54 AM CDT) INR 1.1 <1.3 11/24/2024 11:07 AM CDT [facility] PROTIME 12.5(H) 10.6 - 12.4 sec 11/24/2024 11:07 AM CDT [facility] Blood BLOOD SPECIMEN / Unknown IV Start / Unknown 11/24/2024 10:54 AM CDT 11/24/2024 10:[address] [facility] - 11/24/2024 11:07 AM CDT Therapeutic Range 2.0-3.0 for most anticoagulated patients 2.5-3.5 or 4.0 for high risk patients The INR is only used for patients on stable oral anticoagulant therapy. It makes no significant contribution to the diagnosis or treatment of patients whose Protime is prolonged for other reasons. INR results are increased when heparin levels exceed 1.0 U/mL, which corresponds to an aPTT >125 seconds if the patient is on UFH. us Saul Crow MD HEMATOLOGY Radha l Result [facility] [address] [place] [address] * (ABNORMAL) HEPATIC FUNCTION PANEL (11/24/2024 10:54 AM CDT) ALBUMIN 3.8(L) 4.0 - 4.9 g/dL 11/24/2024 11:23 AM [facility] PROTEIN,TOTAL 6.5 6.0 - 8.0 g/dL 11/24/2024 11:23 AM [facility] BILIRUBIN,TOTAL 0.4 0.0 - 1.2 mg/dL 11/24/2024 11:23 AM [facility] BILIRUBIN,DIRECT 0.2 0.0 - 0.2 mg/dL 11/24/2024 11:23 AM [facility] BILIRUBIN,INDIRE CT 0.2 0.2 - 0.8 mg/dL 11/24/2024 11:23 AM [facility] ALK PHOSPHATASE 67 40 - 129 IU/L 11/24/2024 11:23 AM [facility] ALT (SGPT) 6(L) 10 - 50 IU/L 11/24/2024 11:23 AM [facility] AST (SGOT) 13 10 - 50 IU/L 11/24/2024 11:23 AM [facility] Blood BLOOD SPECIMEN / Unknown IV Start / Unknown 11/24/2024 10:54 AM CDT 11/24/2024 10:59 AM CDT Saul Crow MD CHEMISTRY Radha l Result [facility] [address] [place] [address] * COLONOSCOPY (01/14/2018 2:48 PM CDT) 01/14/2018 2:48 PM CDT Narrative Transcriptions Hector Drake DO - 01/14/2018 3:23 PM CDT Patient Name: [...] ORD Fi nal Result * ANTI HCV [39730.2] (12/27/2017 2:48 PM CDT) HEPATITIS C ANTIBODY Non-React cameron Non-React cameron 12/27/2017 8:04 PM CDT [facility] Comment:Antibodies to HCV no t detected; does not exclude the possibility of exposure to HCV. Blood BLOOD SPECIMEN / Unknown Venipuncture / Unknown 12/27/2017 2:48 PM CDT 12/27/2017 2:49 PM CDT us Anselmo Altman MD SEND OUTS Final R esult [facility] [address] [place] [address], [place] from Last 3 Months or Most Recently Relevant to Health Maintenance Insurance MEDICARE PB ONLY MEDICARE PART B HB ONLY MEDICARE PART A HB ONLY Advance Directives * DNR (Latest Code Status on File) Date Activated Date Inactivated Comments 11/24/2024 3:13 PM 11/25/2024 4:05 PM Question Answer Comments Code Status Discussion: Unable to Assess Preferences, Provider to review later * DNR Date Activated Date Inactivated Comments 12/03/2020 12:18 [...] Question Answer Comments Code Status Discussion: Discussed Care Teams Rn Resource Nurse Relationship Specialty Start Date End Date [place] [address] [address] PCP - General Family Practice 12/25/24
--- OUTSIDE RECORDS SUMMARY | 2024-12-30 18:13 | XMS_ITS | Encounter Summary ---
Author Organization [facility] Address [address] [place] [address] Care Team Providers Care Etymology Professor Name Role Phone Jill Mcbride P.A.-C. Primary Care Pro vider Encounter Details Date Type Department Care Team (Late st Contact Info) Description 12/05/2024 Clinical Communication Department of Family Medicine, [facility], in [place], [place] [address] [place] [address] Ainsley Crow, RAdelinaN. Social History Tobacco Use Types Packs/Day Years Used Date Smoking Tobacco: Former Passive Smoke Exposure: Past Smokeless Tobacco: Former Alcohol Use Standard Drinks/Week Comments Not Currently 0 (1 standard drink = 0.6 oz pur e alcohol) 15 years free of alcohol [facility] Utilities Answer Date Recorded In the past 12 months has e [employer], gas, oil, or water [employer] threatened to shut off services in your [...] your living situation today? I have a [facility] place to live 07/22/2023 Education Answer Date Recorded What is the highest level of school you have completed or the highest degree you have received? 12th grade 10/24/2020 Sex and Gender Information Value Date Recorded Sex Assigned at Male 05/13/2023 11:36 AM [employer] Legal Sex Male 9:32 PM [employer] Gender Identity Male 05/13/2023 11:36 AM [employer] Sexual Orientation Straight 05/13/2023 11 :36 AM [employer] documented as of this encounter Miscellaneous Notes * Telephone Encounter - Ainsley Crow R.N. - 12/05/2024 10:11 AM CDT Patient was seen on 11/24/24 for an appointment, staff was unable to find patient at time of check in and front end loader driver staff reported patient using the restroom. Rooming staff was able to find patient in entry way and assisted back to provider room. Provider had recommended for patient to be evaluated with Emergency Department and transferred via wheelchair. At the time of rooming and during transfer to Emergency Department, staff noted patient having car keys but no presence of wallet. No walletnoted within provider room or seen in patient pockets during transfer. Near 1530 [facility] staff called in reporting patient leaving wallet in exam room, phone call became disconnected. Following this, [facility] staff walked over to [facility] and staff member and [facility] staff looked for wallet where patient was near - checked bathroom and outside where patient had gone while waiting for appointment. On 11/27/24 incoming phone call from patient's mother reported difficulty locating wallet. documented in this encounter Plan of Treatment Not on file documented as of this encounter Visit Diagnoses Not on filedocumented in this encounter Additional Health Concerns Assessment Noted Time PHQ-9 Depression Total Score: 20 021 7:40 AM CDT documented as of this encounter Care Teams Etymology Professor Relationship Specialty Start Date End Date Jill Mcbride MPAS, P.A.-C. [address] [place] [phone] PCP - General Internal Medicine 04/03/24 documented as of this encounter
--- OUTSIDE RECORDS SUMMARY | 2024-12-30 18:13 | XMS_ITS | Clinical Summary ---
Author Organization [facility] Address [address] [place] [address] Care Team Providers Care Driller'S Offsider Name Role Phone Jill Mcbride P.A.-C. Primary Care Pro vider Source Comments Patient records contain information from all sites at [facility]. For routine questions regarding patient records, call [phone] during business hours, M-F 8:00 AM - 5:00 PM Central Time. Record requests for emergency care only can be directed to [phone] at any time.[facility] Allergies Active Allergy Reactions Criticality Noted Date Comments Lisinopril Cough Low 07/15/2017 Pt reports no known allergy Medications * This document contains information received from the source organization and may not represent a complete record from that organization. dextroamphetamin e-amphetamine (ADDERALL) 20 mg tablet Take 20 mg by mouth daily. Active artificial tears,hypromello se, (ISOPTO TEARS) 0.5 % ophthalmic solution Administer 1 drop into the left eye 4 (four) times a day as needed for dry eyes. 15 mL 03/13/20 23 Active amLODIPine (NORVASC) 10 mg tablet Take 1 tablet (10 mg total) by mouth every evening. 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 90 tablet 3 10/29/19 24 Active blood sugar diagnostic stripsIndication s:Diabetes Mellitus Type 2 Hyperglycemia (HCC) 4 test daily. 360 test 3 01/26/20 24 025 Active blood glucose ctl high,nml,low solutionIndicati ons:Diabetes Mellitus Type 2 Hyperglycemia (HCC) Glucose control solution provides an easy way to ensure accurate blood glucose testing. 1 each 01/26/20 Active lancetsIndicatio ns:Diabetes Mellitus Type 2 Hyperglycemia (HCC) Use as directed for glucose monitoring with lancet device 100 each 3 01/26/20 Active aspirin 81 mg chewable tabletIndication s:Atheroscleroti c Heart Disease Of [place] Coronary Artery Without Angina Pectoris Chew 1 [...] 06/02/19 25 Active losartan (Cozaar) 100 mg tabletIndication s:Chronic Kidney Disease Stage 2 Glomerular Filtration Rate 60 To 89 Take 1 tablet (100 mg total) by mouth daily. 90 tablet 3 06/02/19 25 Active nitroglycerin (Nitrostat) 0.[address] 1 tablet (0.4 mg total) under the tongue every 5 (five) minutes as needed for chest pain. 100 tablet 3 06/02/19 25 Active insulin glargine (Lantus Solostar U-100 Insulin) 100 unit/mL (3 mL) penIndications:D iabetes Mellitus Type 2 Hyperglycemia (HCC) Inject 42 Units under the skin 2 (two) times a day. Pharmacy select brand per patient insurance/pre ference. 75.6 mL 3 06/09/19 25 026 Active spironolactone (Aldactone) 50 mg tablet Take 1 tablet (50 mg total) by mouth daily. 90 tablet 3 08/19/19 25 Active blood-glucose meter miscIndications: Diabetes Mellitus Type 2 Hyperglycemia (HCC) Test as directed for diabetes control. 1 each 09/16/19 25 Active flash glucose sensor (FreeStyle Falguni 2 Sensor) kitIndications:D iabetes Mellitus Type 2 Hyperglycemia (HCC) 1 each (1 kit total) every 14 (fourteen) days. 6 each 3 09/19/19 25 Active flash glucose scanning reader (FreeStyle Falguni 2 [place]) 1 each (1 Device total) daily. 1 each 09/20/19 25 Active carvediloL (Coreg) 25 mg tabletIndication s:Atheroscleroti c Heart Disease Of [place] Coronary Artery Without Angina Pectoris Take 1 tablet (25 mg total) by mouth 2 (two) times a day with meals. 180 tablet 3 09/27/19 25 Active tirzepatide (Mounjaro) 7.5 mg/0.5 mL pen injector injectionIndicat ions:Diabetes Mellitus Type 2 Hyperglycemia (HCC),Diabetes Mellitus Type 2 Peripheral Neuropathy (HCC),Morbid Obesity Body Mass Index 45.0-49.9 Adult (HCC) INJECT 0.5ML UNDER THE SKIN ONCE WEEKLY 6 mL 12/02/19 25 Active tirzepatide (Mounjaro) 7.5 mg/0.5 mL pen injector injectionIndicat ions:Diabetes Mellitus Type 2 Hyperglycemia (HCC),Diabetes Mellitus Type 2 Peripheral Neuropathy (HCC),Morbid Obesity Body Mass Index 45.0-49.9 Adult (HCC) Inject 0.5 mL (7.5 mg total) under the skin every 7 (seven) days. 6 mL 2 06/02/19 25 025 Discontinued Active Problems Problem Noted Date Diagnosed Date [...] today. Assessment & Plan (04/07/2023 8:52 AM CENTRIFUGAL OPERATOR): Doing well with gabapentin 100 mg b.i.d.. [...] freestyle Falguni. 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 Bipolar Disorder 07/18/2019 Overview (08/17/2024): Continue Lamictal [...] blood pressure at home daily. Recommended the [facility] home health nurse to check his BP at home to. Follow up with me in 2 weeks. BP goal: <130/80. Assessment & Plan (08/04/2023 3:14 PM CDT): Blood pressure is at goal today. Continue with carvedilol 50 mg, amlodipine 10 mg, losartan 100 mg and 25 mg spironolactone. The side effects of the medication. We will do BMP today. - [facility] home health nurse checks his BP at home [...] Recommended to monitor blood pressure home. - [facility] nurse to help with medication set up and BP monitoring. Assessment & Plan (07/10/2023 5:18 PM CENTRIFUGAL OPERATOR): Patient's blood pressure I have reached 148/102 [...] confuse himself. I have arranged him with [facility] nurse visit to help arrange his medications so he doesn't take duplicates of medications. - pharmacy consult for medication management. Assessment & Plan (07/08/2023 7:11 PM CENTRIFUGAL OPERATOR): Patient is currently taking carvedilol 25 mg [...] We will set up with a daughter [facility] for medication management and set up at home so he does not take duplicates of medications. Follow up in 2 weeks for blood pressure recheck and BMP. Assessment & Plan (04/07/2023 8:50 AM CENTRIFUGAL OPERATOR): Patient is here following up with his [...] carvedilol 25 mg and losartan 100 mg. Atherosclerotic Heart Diseas e [place] Coronary Artery With Other Forms Angina Pectoris [...] 70. Assessment & Plan (07/08/2023 7:15 PM CENTRIFUGAL OPERATOR): Percutaneous Transarterial Coronary Angioplasty Status Post CAD [...] to the acute kidney injury - continued Far - Repeat Echo - cardiology consult Attention Deficit With Hyperactivity Disorder Assessment & Plan (10/14/2023 11:38 AM CDT): Stable currently on Adderall 20 mg. This is managed by [facility]. No side effects of the medication. Assessment & Plan (03/04/2023 8:42 AM CDT): Continue with dextroamphetamine 20 mg managed by psychiatrist Sheryl Handy at [facility] We dont have compete record of his Mental Health and patient is a poor historian. Will reach out to [facility] to request release [...] 10/14/2023 Assessment & Plan (07/08/2023 7:18 PM CENTRIFUGAL OPERATOR): Patient was recently hospitalized due to stroke-like [...] 10/14/2023 Assessment & Plan (07/08/2023 7:08 PM CENTRIFUGAL OPERATOR): Patient RUBY resolved. Will re-initiated losartan 50 mg today. Follow up 2 weeks for BMP recheck. 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 We will try [facility] pharmacy to see if they carry [...] up with me in 2 weeks - [facility] to help with medications set up. - Pharmacy Medication therapy: scheduled. Assessment & Plan (07/10/2023 5:18 PM CENTRIFUGAL OPERATOR): We recently decrease his Lantus to 42 units bid due to hypoglycemic episode concerns.. Continue with NovoLog sliding scale insulin. Plan - continue with 42 units of Lantus bid - SSI insulin - Goal Am Blood glucose 80-140 - 2 hour postprandial glucose <180 - Continue with freestyle Falguni - Crestor 20 mg - Aspirin 81 mg - Arranged [facility] to help with medication set up Assessment & Plan (07/08/2023 7:16 PM CENTRIFUGAL OPERATOR): Last hemoglobin A1c was 9.5. Patient is [...] - Aspirin 81 mg - Arranged [facility] to help with medication set up - Foot exam done today. 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 Assessment & Plan [...] <130/80, continue with losartan and carvedilol - Myocardial Infarction Old Encounters Date Type Department Care Team Description 12/05/2024 Clinical Communication Department of Family Medicine, [facility], in [address] [phone] Ainsley Crow R.N. 11/28/2024 Documentation Department of Community Internal Medicine in [place], [place] [address] [place] [address] Jill Mcbride MPAS, P.A.-C. 11/28/2024 Clinical Communication Department of Community Internal Medicine in [place], [place] [address] [place] [address] Jill Mcbride MPAS, P.A.-C. After Visit Question (11/28/24 spoke with Sussy and transferred her to Jill) 11/28/2024 Refill Department of Community Internal Medicine in [address] [phone] Jill Mcbride MPAS, P.A.-C. Med Refill 11/24/2024 10:30 AM CDT Office Visit Department of Community Internal Medicine in [address] [phone] Jill Mcbride MPAS, P.A.-C. Stroke Cerebrovascular Accident Personal History (Primary Dx) from Last 3 Months Immunizations Immunization Administration [...] 15 years free of alcohol [facility] Utilities Answer Date Recorded In [...] your living situation today? I have a [facility] place to live 07/22/2023 Education Answer Date Recorded What is the highest level of school you have completed or the highest degree you have received? 12th grade 10/24/2020 Sex and Gender Information Value Date Recorded Sex Assigned at Male 05/13/2023 11:36 AM CENTRIFUGAL OPERATOR Legal Sex Male 9:32 PM CENTRIFUGAL OPERATOR Gender Identity Male 05/13/2023 11:36 AM CENTRIFUGAL OPERATOR Sexual Orientation Straight 05/13/2023 11 :36 AM CENTRIFUGAL OPERATOR Last Filed Vital Signs Vital Sign Reading [...] Mass Index 34.61 11/24/2024 10:31 AM CDT Plan of Treatment Health Maintenance Due Date Last Done Comments CT Colonography 1964 Cologuard 1965 FIT 1964 Visit: Medicare Annual Wellness 1965 Hepatitis A Vaccines (1 of 2 - Risk 2-dose series) 1983 Zoster Vaccines (1 of 2) 2014 Urine Albumin 12/05/2022 12/05/2021, 10/02, 02/05/2020 Depression Screening (Annual PHQ-2) 05/03/2024 RSV vaccine - (32-36 weeks) or 60+ years (1 - Risk 60-74 years 1-dose series) 2024 Hepatitis B Vaccines (3 of 3 - Risk 3-dose series) 06/26/2024 05/01/2024, 02/01/2015 Diabetic Office Visit with Foot Exam 08/03/2024 08/04/2023, 08/04/2023, 07/05/2023, Additional history exists Influenza Vaccine (#1) 2025 , 02/19/2023, 02/13/2020, Additional history exists Pneumococcal vaccine (50+ years) (3 of 3 - PCV20 or PCV21) 02/12/2025 02/13/2020, 02/01/2015 PSA: Prostate Cancer Screening 05/01/2025 05/01/2024, 02/05/2020 Hemoglobin A1C 05/27/2025 11/24/2024, 04/04, 09/02/2023, Additional history exists Visit: Chronic Disease, age 18+ 08/17/2025 08/17/2024, 08/17/2024 Lipid (Cholesterol) Screening 11/24/2025 11/24/2024, 08/17/2024, 05/01/2024, Additional history exists Office Visit for Blood Pressure Check / Re-check 11/24/2025 11/24/2024 Creatinine Level (Kidney Function Test) 11/27/2025 11/27/2024, 11/25/2024, 11/24/2024, Additional history exists Potassium Level 11/27/2025 11/27/2024, 07/2 10/2024, 11/24/2024, Additional history exists Sodium Level 11/27/2025 11/27/2024, 072 10/2024, 11/24/2024, Additional history exists Diabetic Eye Exam 12/21/2025 12/21/2024, (Performed elsewhere), 08/20/2022 (Performed elsewhere), Additional history exists Colonoscopy 01/15/2028 01/14/2018 Colorectal Cancer Screening 01/15/2028 DTaP,Tdap,and Td Vaccines (3 - Td or Tdap) 03/24/2032 03/24/2022, 07/06/2011 COVID-19 Vaccine Completed 05/01/2024, , 03/24/2022, Additional history exists Hepatitis C Screening Completed 05/01/2024 IPV Vaccines Aged Out No longer eligi ble based on patient's age to complete this topic Medical Devices Implanted Type Area Histology Manager Device Identifier Shelf Expiration Date Model / Serial / Lot Knee Implant Knee Implant Knee Procedures Procedure Name Priority Date/Time Associated Diagnosis Comments LIPID PANEL, S Routine 08/17/2024 8:43 AM CDT Atherosclerotic Heart Disease [place] Coronary Artery With Other Forms Angina Pectoris (Stable Angina/Angina Of Exertion) Coronary Stent Status Post BASIC METABOLIC PANEL, S/P Routine 08/17/2024 8:43 AM CDT Hypertensive Heart And Chronic Kidney Disease With Heart Failure And Stage 1 To 4 Chronic Kidney Disease Or Unspecified Chronic Kidney Disease (HCC) HCV AB SCRN W/REFLEX TO HCV PCR, S Routine 05/01/2024 4:44 PM CENTRIFUGAL OPERATOR Screening Test Laboratory HEMOGLOBIN A1C, B Routine 05/01/2024 4:4 4 PM CENTRIFUGAL OPERATOR Diabetes Mellitus Type 2 Peripheral Neuropathy (HCC) PROSTATE-SPECIFIC AG (PSA) SCRN, S Routine 05/01/2024 4:44 PM CENTRIFUGAL OPERATOR Screening Examination Prostate Cancer ALBUMIN, RANDOM, U Routine 12/05/2021 7: 42 AM CDT Diabetes Mellitus Type 2 Hyperglycemia (HCC) from Last 3 Months or Most Recently Relevant to Health Maintenance Results * PSA (Prostate-Specific Antigen) Screen (05/01/2024 4:44 PM CENTRIFUGAL OPERATOR) Prostate-Specific Ag 1.4 <=3.5 ng/mL 05/01/2024 6:28 PM CENTRIFUGAL OPERATOR OWAT Comment: ----ADDITIONAL INFORMATION---- The testing method is an electrochemiluminescence assay manufactured by [employer] and performed on the Modular or Jacob system. Values obtained with different assay methods or kits may be different and cannot be used interchangeably. Test results cannot be interpreted as absolute evidence for the presence or absence of malignant disease. Blood (Blood, Venous) 05/01/2024 4:44 PM CENTRIFUGAL OPERATOR 05/01/2024 5:56 PM CENTRIFUGAL OPERATOR Jill ZAMORA, P.A.-C. LAB BLOOD ADD-ON Final Result [facility] [address] [place] [address], [place] OWAT [facility] [place] [address] [place] [address] * HCV Ab Scrn w/Reflex to HCV PCR, Serum (05/01/2024 4:44 PM CENTRIFUGAL OPERATOR) HCV Ab Screen, S Negative Negative 05/01/2024 7:24 PM CENTRIFUGAL OPERATOR MKTO Blood (Blood, Venous) 05/01/2024 4:44 PM CENTRIFUGAL OPERATOR 05/01/2024 7:02 PM CENTRIFUGAL OPERATOR Narrative [facility] - 05/01/2024 7:24 PM CENTRIFUGAL OPERATOR Specimen Information: Specimen ID: [id number] Specimen Type: Blood Specimen Collection Start Date: 05/01/2024 4:44 PM Specimen Received Date: 05/01/2024 7:02 PM Specimen ID: [id number] Specimen Type: Blood Specimen Collection Start Date: 05/01/2024 4:44 PM Specimen Received Date: 05/01/2024 6:56 PM us Jill ZAMORA P.A.RobinC. LAB MICROBIOLOGY - BLOOD ORDERABLES Final Result Performing Organization Address [facility] Co de Phone Number [facility] [address] [place] [address] [place] [address] * (ABNORMAL) Albumin, Random, Urine (12/05/2021 7:42 AM CDT) Albumin, Random, U 37.0 mg/L 2021 12:55 PM CDT [facility] Comment: ----ADDITIONAL INFORMATION---- This test has been modified from the crayon sawyer's instructions. Its performance characteristics were determined by [facility] in a manner consistent with CLIA requirements. This test has not been cleared or approved by the U.S. Food and Drug Administration. Creatinine 87 mg/dL 12/05/2021 12:55 PM CDT TO Albumin/Creatinine Ratio 43(H) <17 mg/g 12/05/2021 12:55 PM CDT [facility] Urine (Urine, Midstream) 12/05/2021 7:42 AM CDT 12/05/2021 11:55 AM CDT us Tima Etienne M.D. LAB URINE ORDERABLES Final Resul t Performing Organization Address City/[facility]/ZIP Co de Phone Number [facility] [address] [place] [address], [place] MKTO [facility] [place] [address] [place] [address] from Last 3 Months or Most Recently Relevant to Health Maintenance Insurance MEDICARE Advance Directives For more information, please contact: [phone] * Full Code (Latest Code Status on [...] Answer Comments Full Code: Discussed Care Teams Driller'S Offsider Relationship Specialty Start Date End Date Jill Mcbride MPAS, P.A.-C. [address] [facility] [place] [phone] PCP - General Internal Medicine 04/03/24
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
--- OUTSIDE RECORDS SUMMARY | 2024-12-30 18:14 | XMS_ITS | Encounter Summary ---
Author Organization [facility] Address [address] [place] [address] Care Team Providers Care Lineman Apprentice Name Role Phone Jill Mcbride, P.A.-C. Primary Care Pro vider Reason for Referral * Outpatient (Routine) - Authorized Specialty Diagnoses / Procedures Referred By Contac t Referred To Contact [facility] Jill Mcbride MPAS, P.A.-C. [address] [place] [address] Phone: tel: fax: [facility] Referral ID Status Reason Start Date Expiration Date V isits Requested Visits Authorized [id number] Authorized 12/01/2024 06/02/2026 1 1 Reason for Visit * Reason Comments Med Refill Encounter Details Date Type Department Care Team (Late st Contact Info) Description 11/28/2024 Refill Department of [facility] in [place], [place] [address] [place] [address] Jill Mcbride MPAS, P.A.-C. [address] [place] [address] Med Refill Social History Tobacco Use Types Packs/Day Years Used Date Smoking Tobacco: Former Passive Smoke Exposure: Past Smokeless Tobacco: Former Alcohol Use Standard Drinks/Week Comments Not Currently 0 (1 standard drink = 0.6 oz pur e alcohol) 15 years free of alcohol [facility] Utilities Answer Date Recorded In the past 12 months has th e electric, gas, oil, or water company [...] your living situation today? I have a [facility] place to live 07/22/2023 Education Answer Date Recorded What is the highest level of school you have completed or the highest degree you have received? 12th grade 10/24/2020 Sex and Gender Information Value Date Recorded Sex Assigned at Male 05/13/2023 11:36 AM REHABILITATION PHYSICIAN Legal Sex Male 9:32 PM REHABILITATION PHYSICIAN Gender Identity Male 05/13/2023 11:36 AM REHABILITATION PHYSICIAN Sexual Orientation Straight 05/13/2023 11 :36 AM REHABILITATION PHYSICIAN documented as of this encounter Plan of Treatment Scheduled Orders Name Type Priority Associated Diagnoses Orde r Schedule Hemoglobin A1c Lab Routine Diabetes Mellitus Type 2 Hyperglycemia (HCC) Expected: 12/01/2024, Expires: 03/03/2026 Albumin, Random, Urine Lab Routine Diabetes Mellitus Type 2 Hyperglycemia (HCC) Expected: 12/01/2024, Expires: 03/03/2026 Scheduled Referrals Name Type Priority Associated Diagnoses Orde r Schedule [facility] office visit (clinic) Outpatient Referral Routine Expected: 12/01/2024 (Approximate), Expires: 03/03/2026 documented as of this encounter Visit Diagnoses Diagnosis Diabetes Mellitus Type 2 Hyperglycemia (HCC) Diabetes Mellitus Type 2 Peripheral Neuropathy (HCC) Morbid Obesity Body Mass Index 45.0-49.9 Adult (HCC) documented in this encounter Additional Health Concerns Assessment Noted Time PHQ-9 Depression Total Score: 20 10/24/ 021 7:40 AM CDT documented as of this encounter Care Teams Lineman Apprentice Relationship Specialty Start Date End Date Jill Mcbride MPAS, P.A.-C. [address] [place] [id number] PCP - General Internal Medicine 04/03/24 documented as of this encounter
[2024-12-30 18:43] VITALS: BP 111/69; PULSE 78; RESP 16; TEMP 36.9; O2SAT 96; BMI 32.9
--- NOTE | 2024-12-30 19:11 | ED.EYEPROB ---
HPI - Eye Problem General Chief complaint: Eye Problems Stated complaint: Left eye bleed, object in same eye Time Seen by Provider: 12/30/24 18:54 History of Present Illness HPI Narrative: This 59-year-old male comes in reporting pain in both of his eyes, right greater than left. He states that he was laying on the ground trying to get a door handle off of a car and it was in such a position where he was looking more directly at the son frequently. Afterwards he was rubbing his eyes and accidentally poked his right eye. Related Data Home Medications ?Medication ?Instructions ?Recorded ?Confirmed aspirin 81 mg chewable tablet 1 tab PO DAILY 08/14/22 12/18/24 blood sugar diagnostic (Accu-Chek 08/14/22 12/18/24 Guide test strips) blood-glucose meter (Accu-Chek 08/14/22 12/18/24 Guide Glucose Meter) clopidogrel 75 mg tablet 75 mg PO DAILY 08/14/22 12/18/24 dextroamphetamine-amphetamine 20 1 tab PO BID 08/14/22 12/18/24 mg tablet (Adderall) insulin glargine 100 unit/mL (3 36 unit subcut BID 08/14/22 12/18/24 mL) subcutaneous pen (Basaglar KwikPen U-100 Insulin) isosorbide mononitrate 60 mg 60 mg PO DAILY 08/14/22 12/18/24 tablet,extended release 24 hr lancets (Accu-Chek Softclix 08/14/22 12/18/24 Lancets) metformin 500 mg tablet 500 mg PO BID 08/14/22 12/18/24 nitroglycerin 0.4 mg sublingual 0.4 mg sublingual PRN angina 08/14/22 12/18/24 tablet torsemide 20 mg tablet 20 mg PO DAILY 08/14/22 12/18/24 insulin aspart U-100 100 unit/mL subcut 08/15/22 12/18/24 (3 mL) subcutaneous pen (Novolog FlexPen U-100 Insulin aspart) albuterol 90 mcg/actuation aerosol 1-2 spray inhalation .Every 6 Hours 08/24/22 12/18/24 inhaler propranolol 20 mg tablet 20 mg PO 3XD 08/24/22 12/18/24 amlodipine 5 mg tablet 5 mg PO DAILY 12/18/24 12/18/24 carvedilol 3.125 mg tablet 3.125 mg PO BID 12/18/24 12/18/24 dapagliflozin propanediol 10 mg 10 mg PO DAILY 12/18/24 12/18/24 tablet (Farxiga) ezetimibe 10 mg tablet 10 mg PO DAILY 12/18/24 12/18/24 gabapentin 600 mg tablet 600 mg PO BID 12/18/24 12/18/24 lamotrigine 100 mg tablet 100 mg PO DAILY 12/18/24 12/18/24 losartan 25 mg tablet 25 mg PO DAILY 12/18/24 12/18/24 rosuvastatin 40 mg tablet 40 mg PO DAILY 12/18/24 12/18/24 spironolactone 50 mg tablet 50 mg PO DAILY 12/18/24 12/18/24 tirzepatide 7.5 mg/0.5 mL 7.5 mg subcut 12/18/24 12/18/24 subcutaneous pen injector (Krishna) Previous Rx's ?Medication ?Instructions ?Recorded celecoxib 100 mg capsule (Celebrex) 100 mg PO BID #20 caps 10/21/24 Allergies Allergy/AdvReac Type Severity Reaction Status Date / Time lisinopril AdvReac Intermediate Cough Verified 12/30/24 18:37 methylphenidate AdvReac Intermediate Hallucinati Verified 12/30/24 18:37 ng Review of Systems Status of ROS: Reports: 10 or more systems reviewed and unremarkable except as noted in History and below Narrative: Constitutional: No fevers, no weight gain or loss. Eyes: Excessive tearing. No vision changes. HENT: No congestion, no sore throat, no ear pain. Cardiovascular: No chest pain, no palpitations. Respiratory: No shortness of breath, no wheezes, no cough. Gastrointestinal: No abdominal pain, no vomiting, no diarrhea. Genitourinary: No dysuria, no hematuria. Musculoskeletal: Normal range of motion. Skin: No rashes, no pruritis. Neurological: No dizziness, weakness, sensory change, speech change. Endo/Heme/Allergies: No bruising or bleeding. No polydipsia. Pysch: no suicidality, no anxiety, no insomnia. All other systems reviewed and are negative. [facility] Medical History (Updated 12/30/24 @ 19:14 by Leroy Knight MD) RLS (restless legs syndrome) ?G25.81 - Restless legs syndrome (ICD-10) Osteoarthritis ?M19.90 - Unspecified osteoarthritis, unspecified site (ICD-10) Left knee pain ?M25.562 - Pain in left knee (ICD-10) Degenerative tear of medial meniscus of right knee ?M23.203 - Derangement of unspecified medial meniscus due to old tear or injury, right knee (ICD-10) Degenerative tear of medial meniscus of left knee ?M23.204 - Derangement of unspecified medial meniscus due to old tear or injury, left knee (ICD-10) Seizure ?R56.9 - Unspecified convulsions (ICD-10) Ischemic cardiomyopathy ?I25.5 - Ischemic cardiomyopathy (ICD-10) Depression with anxiety ?F41.8 - Other specified anxiety disorders (ICD-10) Hyperlipidemia ?E78.5 - Hyperlipidemia, unspecified (ICD-10) Unstable angina ?I20.0 - Unstable angina (ICD-10) Essential hypertension ?I10 - Essential (primary) hypertension (ICD-10) Hyponatremia with increased serum osmolality ?E87.0 - Hyperosmolality and hypernatremia (ICD-10) ?E87.1 - Hypo-osmolality and hyponatremia (ICD-10) Chronic combined systolic and diastolic CHF (congestive heart failure) ?I50.42 - Chronic combined systolic (congestive) and diastolic (congestive) heart failure (ICD-10) Hypertensive emergency ?I16.1 - Hypertensive emergency (ICD-10) Coronary artery disease ?I25.10 - Atherosclerotic heart disease of [place] coronary artery without angina pectoris (ICD-10) Chondromalacia ?M94.20 - Chondromalacia, unspecified site (ICD-10) NSTEMI (non-ST elevated myocardial infarction) ?I21.4 - Non-ST elevation (NSTEMI) myocardial infarction (ICD-10) VANESSA (obstructive sleep apnea) ?G47.33 - Obstructive sleep apnea (adult) (pediatric) (ICD-10) DM type 2 (diabetes mellitus, type 2) ?E11.9 - Type 2 diabetes mellitus without complications (ICD-10) Obesity ?E66.9 - Obesity, unspecified (ICD-10) Bipolar 2 disorder ?F31.81 - Bipolar II disorder (ICD-10) ADHD ?F90.9 - Attention-deficit hyperactivity disorder, unspecified type (ICD-10) Depression ?F32.A - Depression, unspecified (ICD-10) Surgical History (Updated 08/19/22 @ 12:37 by Clara Dent ~ PSR) Status post surgical manipulation of ankle joint ?Z98.890 - Other specified postprocedural states (ICD-10) Status post left foot surgery ?Z98.890 - Other specified postprocedural states (ICD-10) Hx of colonoscopy (~01/14/18) ?Z98.890 - Other specified postprocedural states (ICD-10) Hx of total knee arthroplasty ?Z96.659 - Presence of unspecified artificial knee joint (ICD-10) Family History (Updated 08/14/22 @ 19:31 by Alisha Diop MD) Father Diabetes Mother Diabetes Coronary artery disease, Onset Age: 59 Thyroid disease Aunt Coronary artery disease, Onset Age: 50 Stroke Uncle Coronary artery disease, Onset Age: 56 Social History (Updated 08/14/22 @ 21:07 by Alisha Diop MD) Narrative: Lives alone in a trailer home. Never used tobacco. Quit marijuana in 2004. Quit EtOH in 2008, was drinking 1 case of beer a day before that. 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 Wishes to be DNR/DNI. Highest level of school completed/degree received: Associate degree: occupational, technical, vocational program Smoking Status: Never smoker Do you use any of these nicotine containing products: None How often do you have a drink containing alcohol: never How often do you have six or more drinks on one occasion: Never AUDIT-C Alcohol total score: 0 Non-prescribed substance use: denies use Caffeine: No service: No Exam Narrative: Exam Narrative: Constitutional: Well-developed, well-nourished, no acute distress. HEENT: Normocephalic, atraumatic. He is holding both eyes closed. After tetracaine he did get relief to both eyes and his examination under magnification showed normal findings without any sign of foreign object. Neck: Normal range of motion. Nontender. Supple. Heart: Intact distal pulses. Lungs: No chest discomfort. No wheezes, rhonchi, or rales. Abdomen: Nontender. Back: Normal range of motion. Extremities: Normal range of motion. No injury. Skin: Intact. No rash. Warm. No erythema or pallor. Neurologic: No altered sensation. No weakness. Alert and oriented. Psychiatric: No suicidality. No anxiety or depression. No insomnia. Nursing notes and vitals signs are reviewed. Const: Vital Signs, click to edit/add: Vital Signs - 24 hr 12/30/24 18:43 Temperature 98.4 F Pulse Rate [Pulse Oximeter] 78 Respiratory Rate 16 Blood Pressure [Ri ght Upper Arm] 111/69 Pulse Oximetry 96 Oxygen Delivery Me thod Room Air Course Vital Signs Vital signs: Initial Vital Signs Temperature 98.4 F 12/30/24 18:43 Temperature Source Temporal Artery Scan 12/30/24 18:43 Pulse Rate 78 12/30/24 18:43 Respiratory Rate 16 12/30/24 18:43 Blood Pressure 111/69 12/30/24 18:43 Blood Pressure Mean 83 12/30/24 18:43 Blood Pressure Position Sitting 12/30/24 18:43 Pulse Oximetry 96 12/30/24 18:43 Oxygen Delivery Method Room Air 12/30/24 18:43 Vital Signs Temperature 98.4 F 12/30/24 18:43 Pulse Rate 78 12/30/24 18:43 Respiratory Rate 16 12/30/24 18:43 Blood Pressure 111/69 12/30/24 18:43 Pulse Oximetry 96 12/30/24 18:43 Oxygen Delivery Method Room Air 12/30/24 18:43 Temperature 98.4 F 12/30/24 18:43 Pulse Rate 78 12/30/24 18:43 Respiratory Rate 16 12/30/24 18:43 Blood Pressure 111/69 12/30/24 18:43 Pulse Oximetry 96 12/30/24 18:43 Oxygen Delivery Method Room Air 12/30/24 18:43 MDM - Eye Problem MDM Narrative Medical decision making narrative: This patient comes in with bilateral eye pain, right greater than left. There was some suspicion of exposure to bright light from the son causing symptoms like a welding arc exposure however he did get great relief when tetracaine was applied. On exam there is no abnormal findings on either eye. There is no sign of foreign object. Perhaps he has some corneal abrasion. The patient is okay to be discharged home and is feeling much better. He did receive a supply of flurbiprofen from the [facility] and 4 tablets of [place] from the [facility]. Discharge Plan Discharge Clinical Impression: Corneal abrasion Patient Disposition: Home, Self-Care Condition: Stable Additional Instructions: Take medication as prescribed and needed. Follow up with MD return if worsening. Prescriptions: No Action albuterol 90 mcg/actuation aerosol 1-2 spray inhalation .Every 6 Hours propranolol 20 mg tablet 20 mg PO 3XD amlodipine 5 mg tablet 5 mg PO DAILY carvedilol 3.125 mg tablet 3.125 mg PO BID losartan 25 mg tablet 25 mg PO DAILY ezetimibe 10 mg tablet 10 mg PO DAILY rosuvastatin 40 mg tablet 40 mg PO DAILY dapagliflozin propanediol [Farxiga] 10 mg tablet 10 mg PO DAILY Mounjaro 7.5 mg/0.5 mL pen injector 7.5 mg subcut gabapentin 600 mg tablet 600 mg PO BID lamotrigine 100 mg tablet 100 mg PO DAILY spironolactone 50 mg tablet 50 mg PO DAILY celecoxib [Celebrex] 100 mg capsule 100 mg PO BID Qty: 20 2RF torsemide 20 mg tablet 20 mg PO DAILY (DME) blood-glucose meter [Accu-Chek Guide Glucose Meter] Misc MISCELLANEOUS QID clopidogrel 75 mg tablet 75 mg PO DAILY (DME) Accu-Chek Guide test strips Strip MISCELLANEOUS 5XD isosorbide mononitrate 60 mg tablet extended release 24 hr 60 mg PO DAILY (DME) lancets [Accu-Chek Softclix Lancets] Misc MISCELLANEOUS QID dextroamphetamine-amphetamine [Adderall] 20 mg tablet 1 tab PO BID nitroglycerin 0.4 mg tablet, sublingual 0.4 mg sublingual PRN aspirin 81 mg tablet,chewable 1 tab PO DAILY insulin glargine [Basaglar KwikPen U-100 Insulin] 100 unit/mL (3 mL) insulin pen 36 unit subcut BID metformin 500 mg tablet 500 mg PO BID insulin aspart U-100 [Novolog FlexPen U-100 Insulin] 100 unit/mL (3 mL) insulin pen subcut Patient Comments: per sliding scale Follow Up/Referrals: Provider,Not a Local [Primary Care Provider, Family Practice] Stand Alone [facility]
--- OUTSIDE RECORDS SUMMARY | 2024-12-30 19:12 | XMS_ITS | CCD ---
Author Organization Unknown Care Team Providers Care Senior Application Software Engineer Name Role Phone Component Assembler, [place] Primary Care Provider Unava ilable Unavailable Chronic Care Management Unavaila ble Summary Purpose DataExchange Insurance Providers Payer name Policy type / Coverage type Covered alliance party ID Effective Begin Date Effective End Date Medicare [place] Medicare Part B [id number] Unknown Unknown U[employer] Medicare Part B [id number] Unknown Unknown Family History Family History data not found Medication Administered No Medication Administered data Reason For Visit No Reason For Visit data
--- OUTSIDE RECORDS SUMMARY | 2024-12-30 19:13 | XMS_ITS | CCD ---
Author Organization Unknown Care Team Providers Care Clinical Quality Rn Name Role Phone Workers Compensation Manager, [place] Primary Care Provider Unava ilable Unavailable Chronic Care Management Unavaila ble Summary Purpose DataExchange Insurance Providers Payer name Policy type / Coverage type Covered democrat ID Effective Begin Date Effective End Date Medicare [place] Medicare Part B [id number] Unknown Unknown [employer] Medicare Part B [id number] Unknown Unknown Family History Family History data not found Medication Administered No Medication Administered data Reason For Visit No Reason For Visit data
--- OUTSIDE RECORDS SUMMARY | 2024-12-30 20:35 | XMS_ITS | CCD ---
Author Organization Unknown Care Team Providers Care Third Miller Name Role Phone Nuclear Design Engineer, [place] Primary Care Provider Unava ilable Unavailable Chronic Care Management Unavaila ble Summary Purpose DataExchange Insurance Providers Payer name Policy type / Coverage type Covered republican ID Effective Begin Date Effective End Date Medicare [place] Medicare Part B [id number] Unknown Unknown [employer] Medicare Part B [id number] Unknown Unknown Family History Family History data not found Medication Administered No Medication Administered data Reason For Visit No Reason For Visit data
--- OUTSIDE RECORDS SUMMARY | 2024-12-30 20:36 | XMS_ITS | CCD ---
Author Organization Unknown Care Team Providers Care Automotive Repair Technician Name Role Phone Design Maintenance Engineer, [place] Primary Care Provider Unava ilable Unavailable Chronic Care Management Unavaila ble Summary Purpose [employer]Exchange Insurance Providers Payer name Policy type / Coverage type Covered democrat ID Effective Begin Date Effective End Date Medicare [place] Medicare Part B [id number] Unknown Unknown [employer] Medicare Part B [id number] Unknown Unknown Family History Family History data not found Medication Administered No Medication Administered data Reason For Visit No Reason For Visit data
== END 2024-12-30 19:57 | disposition home or self-care (01) ==
PROVIDERS: Emergency Provider Emergency Medicine Emergency Medical Services; PCP Student in an Organized Health Care Education/Training Program
DX: S05.02XA Injury of conjunctiva and corneal abrasion without foreign body, left eye, initial encounter (principal); S05.01XA Injury of conjunctiva and corneal abrasion without foreign body, right eye, initial encounter; X08.8XXA Exposure to other specified smoke, fire and flames, initial encounter
CPT/HCPCS: 99283; 99284; A9270

== ENCOUNTER 2025-01-03 06:44 | Day surgery (SDC) | payer MEDICARE, SELFPAY ==
[2025-01-03] VITALS (15 sets, daily range): BP systolic 138–171; BP diastolic 77–102; PULSE 64–87; RESP 12–24; TEMP 36.1–36.9; O2SAT 91–99; BMI 35.1
[2025-01-03] MEDS: LACTATED RINGERS 1000 ML 1,000 ML 100 ML IV ×2 (07:45→12:00)
[2025-01-03] MEDS: SODIUM CHLORIDE 0.9 % (FLUSH) 10 ML SYRINGE IVF (08:21)
--- NOTE | 2025-01-03 09:47 | W.PM.H&PU ---
History & Physical Update History & Physical Update H&P Reviewed and patient assessed: No changes noted
--- NOTE | 2025-01-03 09:48 | P.ORPRC_ITS ---
Procedure Note Date of procedure: 01/03/25 Procedure: PREOPERATIVE DIAGNOSES: 1. Left shoulder rotator cuff tear. 2. Left shoulder glenohumeral osteoarthritis. 3. Left shoulder subacromial impingement syndrome. 4. Left shoulder acromioclavicular joint osteoarthritis. POSTOPERATIVE DIAGNOSES: 1. Left shoulder rotator cuff tear. 2. Left shoulder glenohumeral osteoarthritis. 3. Left shoulder subacromial impingement syndrome. 4. Left shoulder acromioclavicular joint osteoarthritis. NAME OF OPERATION: 1. Left shoulder arthroscopic rotator cuff repair (supraspinatus infraspinatus). 2. Left shoulder arthroscopic distal clavicle excision. 3. Left shoulder arthroscopic bursectomy, subacromial decompression/partial acromioplasty. 4. Left shoulder arthroscopic limited debridement. SURGEON: Ezekiel Mcgarry MD REFRIGERATION HOUSEMAN: Sussy Sanders P.A.-C. An undertaker assistant was critical for this case to aid in patient positioning, suture management, arm positioning, instrument positioning, and wound closure. ANESTHESIA: General plus preoperative supraclavicular block. IMPLANTS: Arthrex 2.6 mm knotless FiberTak anchors x3 and 4.75 mm BioComposite SwiveLock anchors x2 COMPLICATIONS: None ESTIMATED BLOOD LOSS: 10 mL INDICATIONS: The patient is a pleasant, 59-year-old male who has experienced left shoulder pain and weakness that has been increasing in recent time. Physical exam and imaging were consistent with a rotator cuff tear. Given these findings, and failure to improve with nonoperative management, recommendation was made for surgical intervention consisting of left shoulder arthroscopic rotator cuff repair, distal clavicle excision, subacromial decompression, and debridement. FINDINGS: Exam under anesthesia revealed stable shoulder with full range of motion. The diagnostic arthroscopy revealed diffuse grade 3 chondromalacia of the glenoid with area of grade 4 chondromalacia involving the anterior inferior glenoid. Diffuse grade 3 chondromalacia of the humeral head. The Subscapularis tendon was intact. Chronic rupture of long head of biceps tendon. Full- thickness tear of the supraspinatus and infraspinatus with 2-3 cm of medial retraction. The anterior, posterior, superiorly labrum. No loose bodies were identified within the pouch or subscapularis recess. Acromioclavicular joint space narrowing and osteophyte formation consistent with moderate acromioclavicular joint osteoarthritis. PROCEDURE: Following a thorough discussion of risks, benefits, and alternatives, consent was obtained and the operative shoulder was marked. A supraclavicular nerve block was performed by anesthesia staff in preop holding. The patient was brought to the operating room and placed supine on the operating table. Induction of anesthesia was completed, and patient was given IV Ancef preoperatively for prophylaxis. Patient was placed into the beach chair position. Head was placed in padded head of art in neutral alignment, and all bony prominences were well padded. The operative shoulder and upper extremity were prepped and draped in the appropriate sterile fashion using ChloraPrep. Surgical time-out was performed confirming patient identity, surgical site, surgical procedure. Anterior, posterior, and lateral portal sites were injected with 0.25% Marcaine with epinephrine. The glenohumeral joint was injected with 40 mL of normal saline using an 18g spinal needle from a posterior approach. Posterior portal was established. Anterior portal was established after localization with a spinal needle and a 7.0 mm cannula was placed here. Diagnostic arthroscopy was then performed with findings as noted above.. Shaver was then inserted and used to debride loose cartilage from the glenoid and humeral head. Frayed edges of the anterior, superior, posterior labrum were also debrided with the arthroscopic shaver. After debridement remnant cartilage and labrum were confirmed to be stable. The camera was then moved to the subacromial space. Subacromial bursectomy and partial acromioplasty were performed with a combination of radiofrequency ablator, the shaver, and a 5.0 mm bur. Following this, further inspection of the rotator cuff was performed. This identified the tear as noted above. A passport cannula was then placed into the lateral portal. The margins of the tear were debrided with the shaver, and the greater tuberosity was lightly decorticated using the bone-cutting shaver. Three small stab incisions were then made off the lateral margin of the acromion for placement of the knotless FiberTak anchors. Three knotless 2.6 mm FiberTak anchors were then placed along the medial margin of the footprint for the supraspinatus and infraspinatus. A shuttling suture was then passed through the rotator cuff lateral to the musculotendinous junction using [employer] suture Passer and was subsequently used to shuttle each set of sutures through the cuff independently. After all 3 suture sets had been passed, a medial row repair was performed using the knotless sutures. Next a 4.75 mm SwiveLock anchor was placed lateral to the anterior margin of the supraspinatus footprint. This anchor incorporated 1 FiberTape from each of the previously passed medial row anchors. A 2nd 4.75 mm SwiveLock was placed lateral to the infraspinatus footprint, again incorporating 1 FiberTape from the previously passed medial row anchors. Prior to securing each SwiveLock anchor, FiberTape sutures were tensioned. After placement of both lateral anchors the medial row knotless anchors were re-tensioned. The cuff was inspected and excellent securing of the rotator cuff was achieved with good tension of the cuff. Rotator cuff was stable through range of motion. After confirming that all sutures were tensioned appropriately, remnant sutures were cut and removed. Attention was then directed to the distal clavicle excision. The acromioclavicular joint was cleared of soft tissue using the radiofrequency ablator. Distal clavicle excision was then performed using the 5.0 mm bur, removing approximately 1 cm of bone from the distal clavicle. A 70 degree scope was used for visualization while performing the distal clavicle excision, confirming complete removal of the superior and posterior portions of the distal clavicle. Remnant bone debris was removed with the arthroscopic shaver. After completion of distal clavicle excision, cannulas and instruments were removed. Excess fluid was drained, portal sites were closed with 3-0 nylon simple interrupted sutures. Sterile dressings were applied followed by the application of an abduction sling. Patient is and rotated back in supine positi on, awoken from anesthesia, transferred to the recovery room in stable condition. PLAN: 1. Discharged to home day of surgery. 2. Ice for pain and swelling. 3. Tylenol and oxycodone as needed for pain control. 4. Abduction sling at all times except for ROM and showering. -Remove sling several times daily for pendulum exercises finger, wrist, and elbow range of motion. 5. Follow-up in orthopedic clinic in 10-14 days for wound check and suture removal. 6. Will initiate formal physical therapy 2 weeks postoperatively per the standard rotator cuff repair protocol
--- NOTE | 2025-01-03 09:48 | SUR.PREOP ---
TIME?OUT:?8309 PT/Clara Jackson RN/Dr. Tree MDA?VERIFICATION?OF?SURGICAL?SITE left shoulder,?PROCEDURE,?AND?CONSENT OBTAINED?PRIOR?TO?INVASIVE?PROCEDURE.
[2025-01-03] MEDS: MIDAZOLAM HCL 1 MG/ML inj IVP (09:49)
--- NOTE | 2025-01-03 10:20 | P.ANES_ITS ---
Anesthesia Charges Start Date/Time Anesthesia Start Date: 01/03/25 Anesthesia Start Time: 10:04 Stop Date/Time Anesthesia Stop Date: 01/03/25 Anesthesia Stop Time: 12:48 Coding CPT Codes CPT Codes: ANESTH SURGERY OF SHOULDER - 50549 ([id number]) P3 - PATIENT W/SEVERE SYS DISEASE, QK - FLEXOGRAPHIC PRESS OPERATOR 2-4 CNCRNT ANES PROC, QX - MARKETING AMBASSADOR SVC W/ MD MED DIRECTION
--- NOTE | 2025-01-03 10:20 | W.ANESCHARGE ---
Anesthesia Charges Start Date/Time Anesthesia Start Date: 01/03/25 Anesthesia Start Time: 10:04 Stop Date/Time Anesthesia Stop Date: 01/03/25 Anesthesia Stop Time: 12:48 Coding CPT Codes CPT Codes: ANESTH SURGERY OF SHOULDER - 29263 ([id number]) P3 - PATIENT W/SEVERE SYS DISEASE, QK - CUSTOMS MANAGER 2-4 CNCRNT ANES PROC, QX - RN FIRST ASSIST SVC W/ MD MED DIRECTION
--- NOTE | 2025-01-03 10:28 | P.NB_ITS ---
Nerve Block Nerve Block Time Seen by Provider: 09:50 Date Seen: 01/03/25 Type of block requested by surgeon for post-operative analgesia: supraclavicular Side: left Time out performed: Yes Verification of patient name: Yes Verification of date of : Yes Site marking: site marked Name of person performing procedure: Tree Continuous monitoring Was continuous monitoring of O2 sat, B/P, chief engineering division, recorded every 15 minutes?: Yes Procedure Checklist: sterile prep, needles and gloves Ultrasound guided. Images saved: Yes Medications given in 5ml increments after negative aspiration: Marcaine %: 0.25 mL: 5 and Exparel mL: 10 Needle gauge: 22 Patient tolerated procedure well: Yes Block Charges Block Charge (with Pro Fee): Brachial Plexus Use of Ultrasound Machine for Block: Yes- US Guidance/pain block
--- NOTE | 2025-01-03 10:29 | P.ANES_ITS ---
Anesthesia Charges Start Date/Time Anesthesia Start Date: 01/03/25 Anesthesia Start Time: 10:04 Stop Date/Time Anesthesia Stop Date: 01/03/25 Anesthesia Stop Time: 12:48 Coding CPT Codes CPT Codes: ANESTH SURGERY OF SHOULDER - 82573 ([id number]) P3 - PATIENT W/SEVERE SYS DISEASE, QK - ASTRO TECHNICIAN 2-4 CNCRNT ANES PROC, QX - PICTURE ENLARGER SVC W/ MD MED DIRECTION
--- NOTE | 2025-01-03 10:29 | W.ANESCHARGE ---
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
[2025-01-03] MEDS: EPINEPHrine 1 MG in SODIUM CHLORIDE IRRIG SOLUTION 3,000 ML 3001 MG IRRIGATION ×8 (10:40→12:05)
[2025-01-03] MEDS: LIDOCAINE 1%-EPI 1:100,000 20 ML INFILTRATI (10:40)
--- NOTE | 2025-01-03 10:51 | SUR.OPER ---
PATIENT QUESTIONS ANSWERED SATISFACTORILY PREOPERATIVELY. PATIENT BROUGHT TO OR #4 PER CART FOLLOWING THE BLOCK. Patient positioned supine on OR #4 bed for the intubation.? Perioperative team wrapped the right arm in a neutral position on the pt. abdomen with the drawsheet. Left arm elevated on an IV pole in a padded strap. Final approval of positioning by surgeon. CONTINUOUS IRRIGATION OF THE LEFT SHOULDER WITH MIXTURE OF 3000 NACL AND 1mg OF EPINEPHRINE DURING PROCEDURE.
[2025-01-03] MEDS: ONDANSETRON 2 MG/ML inj 4 MG IVP (12:59)
--- NOTE | 2025-01-03 13:19 | SUR.PHASEI ---
patient met discharge criteria per anesthesia
== END 2025-01-03 14:35 | disposition home or self-care (01) ==
LOC: OR 06:44
PROVIDERS: PCP Student in an Organized Health Care Education/Training Program; Visit Provider Orthopaedic Surgery
PROC: (CPT 29805; principal; 2025-01-03 09:15)
DX: M75.122 Complete rotator cuff tear or rupture of left shoulder, not specified as traumatic (principal); M19.012 Primary osteoarthritis, left shoulder; M75.42 Impingement syndrome of left shoulder; G89.18 Other acute postprocedural pain; E11.9 Type 2 diabetes mellitus without complications; Z79.4 Long term (current) use of insulin
CPT/HCPCS: 29827; 29826; 29824; 29822; 01630; 64415; 76942; 82962; C1713; J0169; J0330; J0665; J0666; J0690; J2250; J2371; J2405; J2704; J3010; J3490; J7120; L3670

== ENCOUNTER 2025-01-29 13:00 | Outpatient (RCR) | payer MEDICARE, SELFPAY ==
--- NOTE | 2025-01-23 13:07 | PT.OPEX ---
PT [place] Outpatient Eval PT [facility] Outpatient Eval Start: 01/23/25 07:26 Freq: Status: Active Protocol: Document 01/23/25 09:49 GUY (Rec: 01/23/25 11:01 GUY [id number]) E-signed By Eliseo Jeong PT Physical Therapy Outpatient Evaluation Insurance Information Insurance Name Medicaid Medical Diagnosis Left rotator cuff repair - 01/03/25 Right arthroscopic RCR, DCE, SAD Treating Diagnosis Left shoulder pain Left shoulder weakness Referring MD Mcgarry Subjective Preferred Name Vasquez Subjective Pt. reports injuring his left shoulder falling at home sustaining a cuff tear. He had a rotator cuff repair surgery on 01/03/25. He has been wearing an immobilizer at night but has been taking it off during the day due to bicep pain. He states he's been careful to not use left arm as instructed, other than elbow, wrist and hand. No prior shoulder injuries noted. He reports being disabled due to a CVA in 05/2024. 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 He lives with his parents. Currently he has significant limitations and difficulty transferring, dressing and doing household tasks due to left shoulder surgery and his hemiparesis. He is right handed. PMH includes bilateral TKA's, left ankle ORIF, Diabetes, HTN, and heart attack with 3 stents. Pain Comments 8 Date of Last 01/16/25 Physician Visit Occupation Disabled due to CVA Objective Other/Pertinent Shoulder AROM: right WNL; left NA Objective Shoulder strength: right WNL; left NA Left shoulder PROM: flexion 90 deg; abduction 90 deg; ER neutral Left elbow, wrist, hand AROM is WNL Assessment Assessment/ 59 year old male who comes to therapy today S/P left Impression shoulder arthroscopic RCR, DCE, and SAD on 01/03/25 due to traumatic cuff tear falling at home. He has been performing codman's pendulum exercises along with elbow, wrist and hand ROM. 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 He lives with his aging parents. Objective findings include; functional left hand, wrist and elbow ROM; normal right shoulder AROM and strength ; significant reduction in left shoulder PROM with neutral ER, 90 degrees of flexion and 90 degrees of scaption; right hemiparesis from CVA in [place] of 2025 with both UE and LE weakness; and left knee dysfunction from TKA on 2019 without rehab performed. He would benefit from skilled therapy working on progressive left shoulder ROM and eventually strengthening per RCR protocol. Primary Functional lifting, reaching, dressing Limitations Plan of Care Rehabilitation Excellent Potential Physical Therapy 1. Pt. will be indep. with HEP for self maintenance in Goals 12 weeks. 2. Pt. will demonstrate improved left shoulder ROM to WNL for ADL's in 12 weeks. 3. Pt. will be able to raise left arm overhead for ADL' s without difficulty in 12 weeks. 4. Pt. will demonstrate functional left shoulder strength to allow regular ADL activities without restriction in 16 weeks. Coordination/ Referral Source Communication With Treatment Plan/ Joint Mobilization,Manual Therapy,Neuromuscular Re-ed, Direct Interventions Self-Care/Home Management,Therapeutic Exercises Frequency/Duration 1-2 times a week decreasing to every other week for 12 weeks. Patient Will Be Independent w/HEP,Independently Progressing Discharged From Therapy Evaluation Billing Complexity Low Certification Information Initial 01/23/25 Certification Date Ending Certification 04/23/25 Date Provider Signature Yes Required Provider Signature POC & Medical Necessity Shows Agreement With Physician NPI Number Write NPI# Here Physician Comment/ : Change Physician Signature Please Sign/Date Here & Date Requested
== END 2025-04-06 09:44 | disposition home or self-care (01) ==
PROVIDERS: PCP Student in an Organized Health Care Education/Training Program; Visit Provider Orthopaedic Surgery
DX: Z48.89 Encounter for other specified surgical aftercare (principal); M25.512 Pain in left shoulder; Z51.89 Encounter for other specified aftercare
CPT/HCPCS: 97110; 97161